=== PATIENT | male | born 1935 | race Caucasian/White ===

== ENCOUNTER → 2016-11-04 | Outpatient (CLI) | payer OTHER ==
[~2016-11-04] MED LIST: GADOBUTROL 10 ML VIAL IVP ONE
[2016-11-04 15:33] LABS: CREATININE 1.2 mg/dL (0.7-1.3)
== END ==
LOC: FIMAGING 14:24
PROVIDERS: ATTEND Physician Assistant
DX: M51.36 Other intervertebral disc degeneration, lumbar region (principal); M12.88 Other specific arthropathies, not elsewhere classified, other specified site; M43.16 Spondylolisthesis, lumbar region; M48.06 Spinal stenosis, lumbar region; M99.73 Connective tissue and disc stenosis of intervertebral foramina of lumbar region
CPT/HCPCS: 72158; A9585

== ENCOUNTER → 2018-09-04 | Outpatient (CLI) | payer OTHER | LOC: FIMAGING 14:25 | PROVIDERS: ATTEND Family Medicine | DX: R06.02 Shortness of breath (principal); R06.09 Other forms of dyspnea; R68.89 Other general symptoms and signs; Z79.01 Long term (current) use of anticoagulants; Z86.711 Personal history of pulmonary embolism ==

== ENCOUNTER → 2018-09-04 | Outpatient (CLI) | payer OTHER ==
[~2018-09-04] MED LIST changes: -GADOBUTROL 10 ML VIAL IVP ONE; +IOPAMIDOL (ISOVUE 370) 100 ML BTL IV ONE
== END ==
LOC: FIMAGING 16:49
PROVIDERS: ATTEND Family Medicine
DX: R06.02 Shortness of breath (principal); R79.89 Other specified abnormal findings of blood chemistry; Z86.711 Personal history of pulmonary embolism
CPT/HCPCS: 71275; Q9967; 82565-PO

== ENCOUNTER 2018-09-25 11:47 | Emergency (ER) | payer OTHER ==
--- NOTE | 2018-09-25 12:18 | EDPHY ---
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,PE's,Brain tumor - Social History Smoking Status: Former smoker Constitutional: Initial Vital Signs Temperature (C) 36.3 C 09/25/18 11:56 Heart Rate 110 H 09/25/18 11:56 Respiratory Rate 18 09/25/18 11:56 Blood Pressure 95/71 L 09/25/18 11:56 O2 Sat (%) 95 09/25/18 11:56 O2 Delivery Mode Room Air Allergies/Adverse Reactions: Sulfa (Sulfonamide Antibiotics) [Sulfa(Sulfonamide Antibiotics)] Allergy ( Verified 05/26/12 13:16) CAUSED KIDNEY PROB CHILD Home Medications: Medication Instructions Recorded Cholecalciferol Vit D3 [Vitamin D3 2,000 units PO DAILY18 09/05/12 (*)] Lisinopril/Hctz 20/12.5MG 1 ea PO HS 09/05/12 [Zestoretic/Prinzide 20/12.5MG (*)] Ranitidine HCl [Ranitidine HCl 300 150 mg PO HS 09/05/12 mg] Levothyroxine [Synthroid 25 mcg 25 mcg PO DAILY06 03/04/16 (*)] Mirtazapine [Remeron] 15 mg PO HS 03/04/16 Atorvastatin Calcium [Lipitor 10 10 mg PO DAILY #30 tab 03/06/16 mg (*)] Warfarin Sodium [Coumadin 5MG (*)] 5 mg PO DAILY16 #30 tab 03/06/16 Pantoprazole Sodium 09/25/18 Medical Decision Making ED Course/Re-evaluation: CHIEF COMPLAINT: Referred by PCP for anemia. HISTORY OF PRESENT ILLNESS: This patient is an anticoagulated (warfarin) 83 year old male with past medical history including hypertension, GERD, DVT/PE, TIA. He arrives today at the request of his primary care physician, Dr. Quesada, to rule out GI bleed or other acute causes of anemia. The patient had labs completed yesterday and was noted to have a low hemoglobin/hematocrit. The patient himself is unsure why exactly he is here. He is pale appearing, but feels asymptomatic at this time. He denies melena, hematochezia, hematemesis. No vomiting or diarrhea. He denies abdominal pain. He does complain of indigestion ongoing for the past six weeks, and is scheduled to follow up with cardiology next week to rule out cardiac causes of these symptoms. He denies fever, chest pain, shortness of breath, headache, lightheadedness, or other associated symptoms. REVIEW OF SYSTEMS: A comprehensive 10 system review of systems is otherwise negative aside from elements mentioned in the history of present illness and medical decision making. PHYSICAL EXAM: HR, BP, O2 Sat, RR. Temp noted General Appearance: Alert, well hydrated, appropriate, and non-toxic appearing. Head: Atraumatic without scalp tenderness or obvious injury Eyes: Pupils equal, round, reactive to light and accommodation, EOMI, no trauma , no injection. Ears: Clear bilaterally, no perforation, normal landmarks Nose: Atraumatic, no rhinorrhea, clear. Throat: There is no erythema or exudates, no lesions, normal tonsils, mucus membranes moist. Neck: Supple, nontender, no lymphadenopathy. Respiratory: No retractions, no distress, no wheezes, and no accessory muscle use. Lungs are clear to auscultation bilaterally. Cardiovascular: Regular rate and rhythm, no murmurs, rubs, or gallops. Bilateral carotid, radial, dorsalis pedis, and posterior tibial pulses intact. Good capillary refill all extremities. Gastrointestinal: Abdomen is soft, nontender, non-distended, no masses, no rebound, no guarding, no peritoneal signs. Musculoskeletal: Normal active ROM of all extremities, atraumatic. Neurological: Alert, appropriate, and interactive. The patient has normal DTRs and non-focal cranial nerves, motor, sensory, and cerebellar exam. Skin: No rashes, good turgor, no nodules on palpation. Past medical history: Hypertension, GERD, history of DVT/PE, history of TIA, RBBB, Pontine angle mass. Past surgical history: Noncontributory Family history: Noncontributory. Social history: Lives in [place]. Retired. Does not abuse tobacco, drugs, or alcohol. DIFFERENTIAL DIAGNOSIS: Includes but not limited to upper GI bleed, lower GI bleed, chronic anemia, diverticulosis, tumor. ulcer disease, gastritis, Liz-Kline tear, and esophageal varices. MEDICAL DECISION MAKIN83 y/o male presents to r/o acute causes for anemia including GI bleed. He is currently asymptomatic and denies any recent history of GI bleed symptoms. He has no abdominal pain and no tenderness on exam. Plan for labs including CBC, chemistries, liver, lipase, coag panel, UA. Reviewed laboratory studies. INR is therapeutic at 2.6. H&H are 10 and 29 respectively. The patient's BUN is within normal limits. Reviewed prior laboratory results. Patient's last Hgb was around 40 in February; no other studies between then and now, though he has been anemic in the past. The patient's MCV is elevated which is more likely consistent with more chronic anemia. Discussed results of workup so far and offered admission for further evaluation. The patient declines admission and would like to proceed with outpatient GI workup. He has followed up with Dr. Smiley, chart clerk, in the past. He states he feels "absolutely fine" and continues to decline further workup here in the hospital despite my offers. He is therapeutic on his Coumadin. Plan to consult with GI to establish close followup for this patient. 13:[address] Marcelo and Dr. Smiley, chart clerk. Plan for colonoscopy tomorrow morning at 8:30am. The doctors recommend admission for bowel prep and periprocedural management and further evaluation of his anemia. 13:15 The patient continues to decline admission despite the above recommendations. He prefers to follow up outpatient and feels he will be safe at home. Plan to discharge home in good condition with GI follow up. The GI office will call him to discuss scheduling and prep for his colonoscopy. Follow up and return precautions discussed. The patient is comfortable with this plan. - Data Points Laboratory Results: Laboratory Results 09/25/18 12:23 09/25/18 12:23 09/25/18 09/25/18 09/25/18 12:43 12:23 12:23 WBC RBC Hgb POC Hgb 9.2 gm/dL L gm/dL (13.7-17.5) Hct POC Hct 27 % L % (40-51) MCV MCH MCHC RDW Plt Count MPV Neut % (Auto) Lymph % (Auto) [place] % (Auto) Eos % (Auto) Baso % (Auto) Nucleat RBC Rel Count Absolute Neuts (auto) Absolute Lymphs (auto) Absolute Monos (auto) Absolute Eos (auto) Absolute Basos (auto) Absolute Nucleated RBC Immature Gran % Seg Neutrophils % Band Neutrophils % Lymphocytes % Monocytes % Eosinophils % Basophils % Metamyelocytes % Myelocytes % Promyelocytes % Blast Cells % Immature Gran # Absolute Seg Neuts Absolute Band Neuts Absolute Lymphocytes Absolute Monocytes Absolute Eosinophils Absolute Basophils Absolute Metamyelocyte Absolute Myelocytes Absolute Promyelocytes Absolute Plasma Cells Nucleated RBCs Absolute Blast Cells Plasma Cells % Platelet Estimate Polychromasia Oval Macrocytes Elliptocytes Smear Review By PT 27.9 SEC H SEC (12.0-15.0) INR 2.61 H (0.83-1.16) APTT 51.9 SEC H SEC (23.0-38.0) POC Sodium 139 mEq/L mEq/L (135-145) Sodium 136 mEq/L mEq/L (135-145) POC Potassium 3.6 mEq/L mEq/L (3.3-5.0) Potassium 3.8 mEq/L mEq/L (3.5-5.2) POC Chloride 103 mEq/L mEq/L (97-110) Chloride 105 mEq/L mEq/L (97-110) Carbon Dioxide 22 mEq/l mEq/l (22-31) Anion Gap 9 mEq/L mEq/L (6-14) POC BUN 16 mg/dL mg/dL (7-23) BUN 19 mg/dL mg/dL (7-23) Creatinine 1.3 mg/dL mg/dL (0.7-1.3) POC Creatinine 1.3 mg/dL mg/dL (0.7-1.3) Estimated GFR 53 Glucose 97 mg/dL mg/dL (70-100) POC Glucose 97 mg/dL mg/dL (70-100) Calcium 8.5 mg/dL mg/dL (8.5-10.4) Total Bilirubin 0.7 mg/dL mg/dL (0.1-1.4) Conjugated Bilirubin 0.3 mg/dL mg/dL (0.0-0.5) Unconjugated Bilirubin 0.4 mg/dL mg/dL (0.0-1.1) AST 18 IU/L IU/L (17-59) ALT 19 IU/L L IU/L (21-72) Alkaline Phosphatase 49 IU/L IU/L (38-126) Total Protein 6.8 g/dL g/dL (6.3-8.2) Albumin 3.5 g/dL g/dL (3.5-5.0) Lipase 57 IU/L IU/L (23-300) 09/25/18 12:23 WBC 4.32 10^3/uL 10^3/uL (3.80-9.50) RBC 2.85 10^6/uL L 10^6/uL (4.40-6.38) Hgb 10.0 g/dL L g/dL (13.7-17.5) POC Hgb Hct 29.1 % L % (40.0-51.0) POC Hct MCV 102.1 fL H fL (81.5-99.8) MCH 35.1 pg H pg (27.9-34.1) MCHC 34.4 g/dL g/dL (32.4-36.7) RDW 14.6 % % (11.5-15.2) Plt Count 161 10^3/uL 10^3/uL (150-400) MPV 9.2 fL fL (8.7-11.7) Neut % (Auto) Not Reported Lymph % (Auto) Not Reported [place] % (Auto) Not Reported Eos % (Auto) Not Reported Baso % (Auto) Not Reported Nucleat RBC Rel Count Not Reported Absolute Neuts (auto) Not Reported Absolute Lymphs (auto) Not Reported Absolute Monos (auto) Not Reported Absolute Eos (auto) Not Reported Absolute Basos (auto) Not Reported Absolute Nucleated RBC Not Reported Immature Gran % Not Reported Seg Neutrophils % 34.3 % % Band Neutrophils % 0.0 % % Lymphocytes % 35.4 % % Monocytes % 30.3 % % Eosinophils % 0.0 % % Basophils % 0.0 % % Metamyelocytes % 0.0 % % Myelocytes % 0.0 % % Promyelocytes % 0.0 % % Blast Cells % 0.0 % % Immature Gran # Not Reported Absolute Seg Neuts 1.48 10^3/uL L 10^3/uL (1.70-6.50) Absolute Band Neuts 0.00 10^3/uL 10^3/uL (0.00-0.70) Absolute Lymphocytes 1.53 10^3/uL 10^3/uL (1.00-3.00) Absolute Monocytes 1.31 10^3/uL H 10^3/uL (0.30-0.80) Absolute Eosinophils 0.00 10^3/uL L 10^3/uL (0.03-0.40) Absolute Basophils 0.00 10^3/uL L 10^3/uL (0.02-0.10) Absolute Metamyelocyte 0.00 10^3/mL 10^3/mL (0.00-0.00) Absolute Myelocytes 0.00 10^3/mL 10^3/mL (0.00-0.00) Absolute Promyelocytes 0.00 10^3/uL 10^3/uL (0.00-0.00) Absolute Plasma Cells 0.00 10^3/uL 10^3/uL (0.00-0.00) Nucleated RBCs 0 /100 WBC /100 WBC (0-0) Absolute Blast Cells 0.00 10^3/uL 10^3/uL (0.00-0.00) Plasma Cells % 0.0 % % Platelet Estimate ADEQUATE (ADEQ) Polychromasia 1+ H Oval Macrocytes 1+ H Elliptocytes 1+ H Smear Review By Pending PT INR APTT POC Sodium Sodium POC Potassium Potassium POC Chloride Chloride Carbon Dioxide Anion Gap POC BUN BUN Creatinine POC Creatinine Estimated GFR Glucose POC Glucose Calcium Total Bilirubin Conjugated Bilirubin Unconjugated Bilirubin AST ALT Alkaline Phosphatase Total Protein Albumin Lipase Point of Care Test Results: Chemistry 09/25/18 12:43 POC Sodium 139 mEq/L mEq/L (135-145) POC Potassium 3.6 mEq/L mEq/L (3.3-5.0) POC Chloride 103 mEq/L mEq/L (97-110) POC BUN 16 mg/dL mg/dL (7-23) POC Creatinine 1.3 mg/dL mg/dL (0.7-1.3) POC Glucose 97 mg/dL mg/dL (70-100) ISTAT H&H 09/25/18 12:43 POC Hgb 9.2 gm/dL L gm/dL (13.7-17.5) POC Hct 27 % L % (40-51) Departure - Departure Disposition: Home, Routine, Self-Care Clinical Impression: Anemia Qualifiers: Anemia type: other cause Other causes of anemia: chronic disease, other Qualified Code(s): D63.8 - Anemia in other chronic diseases classified elsewhere Condition: Good Instructions: Anemia (ED) Additional Instructions: Follow up with your primary care provider for further evaluation. Follow up with gastroenterology as discussed. Return to the emergency department for fever, blood in your stool or dark, tarry stools, abdominal pain, or other worsening of condition or further concerns. Referrals: Roslyn Quesada MD [Primary Care Provider] - As per Instructions Jarad Marcelo MD [Medical Doctor] - As per Instructions Report Scribed for: Efren Poe Report Scribed by: Silvina Velázquez Date of Report: 09/25/18 Time of Report: 13:10
[2018-09-25 12:35] LABS: PLATELET COUNT 161 10^3/uL (150-400)
[2018-09-25 12:44] LABS: INR 2.61 (0.83-1.16); PROTIME(PATIENT) 27.9 SEC (12.0-15.0)
[2018-09-25 13:23] VITALS: BP 107/56
== END 2018-09-25 13:23 | disposition home or self-care (01) ==
DX: D64.9 Anemia, unspecified (principal); I10 Essential (primary) hypertension; K21.9 Gastro-esophageal reflux disease without esophagitis; Z79.01 Long term (current) use of anticoagulants; Z87.891 Personal history of nicotine dependence
CPT/HCPCS: 82435-PO; 82565-PO; 82947-PO; 84132-PO; 84295-PO; 84520-PO; 85014-ER

== ENCOUNTER 2018-09-29 10:01 | Inpatient (IN) | payer OTHER ==
--- NOTE | 2018-09-29 10:18 | EDPHY ---
H & P Stated Complaint: Fatigued --"anemia" gen abd pain--see recent bch hx Time Seen by Provider: 09/29/18 10:19 - Personal History Tetanus Vaccine Date: OVER 10 YRS AGO - Medical/Surgical History Hx Asthma: No Hx Chronic Respiratory Disease: No Hx Diabetes: No Hx Cardiac Disease: No Hx Renal Disease: No Hx Cirrhosis: No Hx Alcoholism: No Hx HIV/AIDS: No Hx Splenectomy or Spleen Trauma: No Other PMH: hypertension,gerd,PE's,tumor L brain stem - Social History Smoking Status: Former smoker Constitutional: Initial Vital Signs Temperature (C) 36.0 C 09/29/18 10:05 Heart Rate 105 H 09/29/18 10:05 Respiratory Rate 16 09/29/18 10:05 Blood Pressure 123/58 H 09/29/18 10:05 O2 Sat (%) 97 09/29/18 10:05 O2 Delivery Mode Room Air Allergies/Adverse Reactions: Sulfa (Sulfonamide Antibiotics) [Sulfa(Sulfonamide Antibiotics)] Allergy ( Verified 05/26/12 13:16) CAUSED KIDNEY PROB CHILD Home Medications: Medication Instructions Recorded Cholecalciferol Vit D3 [Vitamin D3 2,000 units PO DAILY18 09/05/12 (*)] Lisinopril/Hctz 20/12.5MG 1 ea PO HS 09/05/12 [Zestoretic/Prinzide 20/12.5MG (*)] Ranitidine HCl [Ranitidine HCl 300 150 mg PO HS 09/05/12 mg] Levothyroxine [Synthroid 25 mcg 25 mcg PO DAILY06 03/04/16 (*)] Mirtazapine [Remeron] 15 mg PO HS 03/04/16 Atorvastatin Calcium [Lipitor 10 10 mg PO DAILY #30 tab 03/06/16 mg (*)] Warfarin Sodium [Coumadin 5MG (*)] 5 mg PO DAILY16 #30 tab 03/06/16 Pantoprazole Sodium 09/25/18 Ferrous Sulfate 09/29/18 Medical Decision Making ED Course/Re-evaluation: CHIEF COMPLAINT: Weakness, dyspnea, anemia HISTORY OF PRESENT ILLNESS: This patient is an anticoagulated (warfarin) 83 year old male with past medical history including hypertension, GERD, DVT/PE, TIA. He was seen on 09/25/18 for the same complaint and was offered admission multiple times, but declined. He followed up with [facility], the next day and an upper endoscopy showed gastritis. Since then he had progressive weakness and dyspnea with even mild exertion. He describes difficulty moving around his home to eat. He denies abdominal pain, but has had indigestion symptoms for several weeks. He denies fever, chest pain, headache, syncope, black tarry stools, vomiting, urinary symptoms. REVIEW OF SYSTEMS: A comprehensive 10 system review of systems is otherwise negative aside from elements mentioned in the history of present illness and medical decision making. PHYSICAL EXAM: HR, BP, O2 Sat, RR. Temp noted General Appearance: Alert, well hydrated, appropriate, pale and fatigued- appearing. Head: Atraumatic without scalp tenderness or obvious injury Eyes: Pupils equal, round, reactive to light and accommodation, EOMI, no trauma , no injection. Nose: Atraumatic, no rhinorrhea, clear. Throat: Mucus membranes moist. Neck: Supple, nontender, no lymphadenopathy. Respiratory: No retractions, no distress, no wheezes, and no accessory muscle use. Lungs are clear to auscultation bilaterally. Cardiovascular: Regular rate and rhythm, no murmurs, rubs, or gallops. Good capillary refill all extremities. Gastrointestinal: Abdomen is soft, nontender, non-distended, no masses, no rebound, no guarding, no peritoneal signs. Musculoskeletal: Normal active ROM of all extremities, atraumatic. Neurological: Alert, appropriate, and interactive. The patient has non-focal cranial nerves, motor, sensory, and cerebellar exam. Skin: No rashes, good turgor, no nodules on palpation. Past medical history: Hypertension, GERD, history of DVT/PE, history of TIA, RBBB, Pontine angle mass. Past surgical history: Noncontributory Family history: Noncontributory. Social history: Lives in [place]. Retired. Does not abuse tobacco, drugs, or alcohol. DIFFERENTIAL DIAGNOSIS: Includes but not limited to upper GI bleed, lower GI bleed, chronic anemia, diverticulosis, tumor. ulcer disease, gastritis, Liz-Kline tear, and esophageal varices. MEDICAL DECISION MAKIN83 y/o male with known anemia and suspected upper GI bleed returns to the ED with progressive weakness and exertional dyspnea now seeking admission. He was seen here recently with concern for GI bleed, but declined admission and followed up with GI the next day for an endoscopy. Upper endoscopy showed gastritis. He is pale and fatigue-appearing on exam. His abdomen is benign. Plan for IV, labs, and admission. Spoke with hospitalist service. Dr. Decker accepts admission. - Data Points Laboratory Results: Laboratory Results 09/29/18 10:25 09/29/18 09/29/18 09/29/18 10:25 10:25 10:25 WBC 3.58 10^3/uL L 10^3/uL (3.80-9.50) RBC 2.87 10^6/uL L 10^6/uL (4.40-6.38) Hgb 10.1 g/dL L g/dL (13.7-17.5) Hct 29.1 % L % (40.0-51.0) MCV 101.4 fL H fL (81.5-99.8) MCH 35.2 pg H pg (27.9-34.1) MCHC 34.7 g/dL g/dL (32.4-36.7) RDW 15.0 % % (11.5-15.2) Plt Count 183 10^3/uL 10^3/uL (150-400) MPV 9.2 fL fL (8.7-11.7) Neut % (Auto) Pending Lymph % (Auto) Pending [place] % (Auto) Pending Eos % (Auto) Pending Baso % (Auto) Pending Nucleat RBC Rel Count Pending Absolute Neuts (auto) Pending Absolute Lymphs (auto) Pending Absolute Monos (auto) Pending Absolute Eos (auto) Pending Absolute Basos (auto) Pending Absolute Nucleated RBC Pending Immature Gran % Pending Immature Gran # Pending Platelet Estimate Pending PT Pending INR Pending APTT Pending Sodium Pending Potassium Pending Chloride Pending Carbon Dioxide Pending Anion Gap Pending BUN Pending Creatinine Pending Estimated GFR Pending Glucose Pending Calcium Pending Total Bilirubin Pending Conjugated Bilirubin Pending Unconjugated Bilirubin Pending AST Pending ALT Pending Alkaline Phosphatase Pending Total Protein Pending Albumin Pending Lipase Pending Departure - Departure Referrals: Roslyn Quesada MD [Primary Care Provider] - As per Instructions Report Scribed for: Efren Poe Report Scribed by: Sharyn Nunez Date of Report: 09/29/18 Time of Report: 10:42
[2018-09-29 10:39] LABS: PLATELET COUNT 183 10^3/uL (150-400)
[2018-09-29 10:48] LABS: INR 3.05 (0.83-1.16); PROTIME(PATIENT) 31.4 SEC (12.0-15.0)
[2018-09-29] MEDS ORDERED: ONDANSETRON 4 MG/2 ML VIAL IVP PRN (12:53)
[2018-09-29] MEDS ORDERED: ONDANSETRON DISINTEGRATING 4 MG TAB PO PRN (12:53)
[2018-09-29] MEDS: NS 1,000 ML IV SCH (13:10)
--- NOTE | 2018-09-29 14:06 | ASMTCMCOM ---
CM Note CM Note Notes: CM reviewed pt's chart for d/c planning. Pt is an 83 y/o male who came to the ED due to fatique and generalized abdominal pain.He was seen at the ED on 09/26 for similar complaints and offered hospitalization multiple times, but declined and followed up out-pt. An upper endoscopy showed gastritis. 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 Pt lives in [place] and is a . OT/PT evals have been ordered. CM will follow for recommendations. D/C Plan: TBD Date Signed: 09/29/2018 02:06 PM Electronically Signed By:Bridget Townsend
--- NOTE | 2018-09-29 14:16 | GHP ---
DATE OF ADMISSION: 09/29/2018 CHIEF COMPLAINT: Fatigue with associated dyspnea on exertion. HISTORY OF PRESENT ILLNESS: The patient is an 83-year-old gentleman with a history of hypertension, DVT, pulmonary emboli on chronic anticoagulation, GERD , and transient ischemic attack who presented to the emergency room with complaints of fatigue as well as shortness of breath. He was here recently in the emergency room for the same complaints. At that time he declined admission , but did have a followup EGD with Dr. Smiley. This showed gastritis. He had a colonoscopy in September 2013 that was noted to be normal. He denies any melena or hematochezia. He denies any fever, chills, night sweats. He has had an approximately 10 pound weight loss over the last 6 weeks because he has no appetite. When I asked him why he came here, he said "I just don't feel good." He has no specific symptoms except that he has to force himself to eat. He gets up in the morning and tries to eat a banana followed a bowl of cereal. By noon, he is absolutely not hungry and he forces down some soup and a sandwich. He denies any nausea, no vomiting, he just has no appetite. In regard to his dyspnea, this only occurs with exertion. He has a history of PEs and is therapeutic on his INR. During my interview, his main complaint is just overall no appetite and exhaustion. PAST MEDICAL HISTORY: 1. He had an echocardiogram in 2015 that showed an LVEF of 69% with diastolic dysfunction. 2. History of pulmonary emboli x2. 3. Transient ischemic attack in February of 2006. 4. Right bundle branch block. 5. Hypertension. 6. Gastroesophageal reflux disease. 7. Mild pulmonary hypertension. 8. DVT. 9. Hypothyroidism. 10. BPH. PAST SURGICAL HISTORY: 1. Cholecystectomy. 2. Benign spinal cord tumor excision. FAMILY HISTORY: 1. Father from stomach cancer at age 72. 2. Mother from from complications of a stroke at age 73. SOCIAL HISTORY: He does not smoke. He does not drink alcohol. He is . His in 2011. He is not clear what she from. She had mental illness. He has 4 children. He lives alone. ALLERGIES: Sulfa. HOME MEDICATIONS: Dexilant 60 mg daily a.c. Carafate 1 g p.o. at bedtime and a.c. Coumadin 2.5 mg p.o. Monday, Monday, Monday. Coumadin 5 mg p.o. Monday , Monday, , Monday. Metamucil 1 packet at night. Vitamin B12 1000 mcg daily. Protonix 40 mg daily. Ranitidine 300 mg daily. Synthroid 25 mcg daily. Remeron 300 mg daily. Lisinopril/hydrochlorothiazide 20/12.5 mg daily. Vitamin D3 2000 units daily. REVIEW OF SYSTEMS: A 10-point review of system was performed and was negative other than the pertinent positives in the HPI and past medical history. PHYSICAL EXAM: GENERAL: The patient is an 83-year-old male who appears to be in fair health and looks extremely tired. VITAL SIGNS: Blood pressure is 124/ 65. Heart rate of 93. Respiratory rate is 16. O2 sats on 2 L are 96%. Temperature is 36.8 Celsius. EYES: Pupils are equal and reactive. EOMs are intact. He is wearing glasses. ENT: Normal ears. Hearing intact. Airway is dry. His lips are very chapped. NECK: Trachea is midline. CARDIOVASCULAR: He is in a regular rate and rhythm. No murmurs, rubs, or gallops noted. CHEST : Lungs normal respiratory effort. Clear without wheezing, rales, rhonchi. ABDOMEN: Soft, nontender. No rebound. No guarding. SKIN: No rashes or ulcers noted. MUSCULOSKELETAL: He has equal upper and lower extremity strength. PSYCHIATRIC: He is alert and oriented. Normal mood, affect. Normal judgment, insight, and normal memory. DATA REVIEWED: A CBC shows a white blood cell count of 3.58, hemoglobin 10.1, hematocrit of 29.1, MCV of 101.4. Coags: Pro time is 31.4, INR 3.05, PTT of 61.4. Chemistry panel shows a sodium of 136, potassium 4, CO2 of 21, BUN of 20 , creatinine of 1.3, glucose of 121, calcium of 8.3. Total bili is 0.8, AST 23 , ALT 21, alk phos 56, albumin is 3.5, total protein is 7.1, lipase is 62. I reviewed the patient's care with Dr. Efren Poe, the ER physician. ASSESSMENT/PLAN: 1. Fatigue with ongoing anorexia with significant weight loss. Will check a BNP. Check an EKG and a troponin. Will get an echocardiogram to further evaluate this. I also spoke with Gastroenterology who will do further evaluation of his anemia. 2. Dyspnea on exertion. He has a history of pulmonary emboli. INR is therapeutic. Will get a chest x-ray. Also check a troponin and an EKG. 3. Macrocytic anemia. He had a B12 on September 24 that was 631. His hemoglobin and hematocrit are lower than his baseline. I have spoken with Gastroenterology. He recently had an esophagogastroduodenoscopy. They will further evaluate him. He will likely get a colonoscopy. 4. Hypothyroidism. His most recent TSH on September 24 was stable at 2.2. Resume his Synthroid. 5. Renal insufficiency, close to his baseline. 6. Dehydration. Hydrate him overnight and recheck labs in the morning. 7. Elevated INR. Will hold his Coumadin in the setting of anemia and further evaluation by gastroenterology. 8. History of pulmonary emboli. Once noted stable, his Coumadin will need to be resumed. 9. Hypertension. Will hold his blood pressure medication for now. He is on a diuretic and he is dehydrated. 10. Deep venous thrombosis prophylaxis, on oral anticoagulation. 11. Code status. Do not resuscitate. 12. Length of stay. I suspect he will require greater than a 2-midnight stay for further evaluation of the above. /[id number]/MODL MTDD
--- NOTE | 2018-09-29 16:01 | PDMN ---
Medical Necessity Medical necessity: Pt meets INPT criteria per MD as of 09/29/18 and MCG Systemic or Infectious Condition GRG (est. LOS >2 MN for eval/mgmt of fatigue, ANDERSON, ongoing anorexia with significant weight loss, macrocytic anemia, dehydration, renal insufficiency, elevated INR; comorbid htn, mild pulmonary htn, GERD; hx PE , TIA).
--- NOTE | 2018-09-29 17:12 | ECHO ---
[email or web address] [address] [address] Main: [phone] Fax: [email or web address] Echocardiogram Name: PEREZ FLOOD MR#: [id number] Study Date: 09/29/2018 Study Time: 01:43 PM Date of : 1935 Age: 83 year(s) Height: 188 cm (74 in.) Weight: 88.91 kg (196 lb.) BSA: 2.15 m2 Gender: Male Examination: Echo Indication: weakness and dyspnea Image Quality: Technically Difficult Contrast: Requested by: Patsy Ram BP: 124 mmHg/65 mmHg Heart Rate: Rhythm: Indication: weakness and dyspnea Procedure Staff Paper Machine Back Tender: Naima Pineda [facility] Reading Physician: Armand Peterson MD Requesting Provider: Conclusions: Normal global systolic LV function. EF is 63 %. Trivial mitral valve regurgitation. Trivial tricuspid valve regurgitation. No pericardial effusion. Measurements: Chambers Valvular Assessment AV/MV Valvular Assessment TV/PV Normal Normal Normal Name Value Range Name Value Range Name Value Range Ao Ilda (MM): 3.6 cm (2.2 cm-3.7 AV Vmax: 1.39 m/s (1 m/s-1.7 PV Vmax: 1.05 m/s (0.6 m/s-0.9 cm) m/s) m/s) IVSd (2D): 1.0 cm (0.6 cm-1.1 AV maxP mmHg ( - ) PV PGmax: 4 mmHg ( - ) cm) LVOT Vmax: 1.15 m/s (0.7 m/s-1.1 LVDd (2D): 4.4 cm (4.2 cm-5.9 m/s) cm) ELIZABETH (Vmax): 2.6 cm2 ( - ) LVDs (2D): 2.9 cm (2.1 cm-4 MV E Vmax: 0.67 m/s ( - ) cm) MV A Vmax: 1.03 m/s ( - ) LVPWd (2D): 0.9 cm (0.6 cm-1 MV E/A: 0.65 ( - ) cm) LVOTd 2.0 cm 2.0 cm mm LVEF (BP): 63 % (>=55 %) RVDd(2D): 3.4 cm (1.9 cm-3.8 cmmm) Continued Measurements: Chambers Valvular Assessment AV/MV Name Value Name Value LADs Lon.6 cm MV DecTime: 222 m/s Patient: PEREZ FLOOD Study Date: 09/29/2018 Page 1 of 2 01:43 PM LA Area: 14.3 cm2 MV E' Septal: 0.09 m/s LA Volume: 47 ml MV E/E' Septal: 7.40 LA Volume Index: 21.9 ml/m2 MV E/E' Lateral: 6.90 TAPSE: 1.8 cm RA Area: 12.6 cm2 Additional Vessels Name Value Ao Ascendin.2 cm Findings: Left Ventricle: Normal size left ventricle. No LV hypertrophy. Normal global systolic LV function. EF is 63 %. No regional wall motion abnormality. Normal diastolic LV function. Right Ventricle: Normal size right ventricle. Normal RV function. Left Atrium: The left atrium is normal in size. Right Atrium: The right atrium is normal in size. Mitral Valve: The mitral valve is normal in appearance and function. Trivial mitral valve regurgitation. No mitral stenosis is present. Aortic Valve: The aortic valve is tri-leaflet. There is no aortic valve regurgitation. No aortic valve stenosis is present. Tricuspid Valve: The tricuspid valve is normal in appearance and function. Trivial tricuspid valve regurgitation. Pulmonary artery pressure is not obtained due to inadequate TR jet. Pulmonic Valve: Pulmonary valve not well visualized. There is no pulmonic regurgitation seen. Aorta: The aorta is normal. Normal size aortic root measuring 3.6 cm. Normal size ascending aorta measuring 3.2 cm. IVC: Normal size and course of the IVC. Pericardium: No pericardial effusion. (No Signature Object) Patient: PEREZ FLOOD Study Date: 09/29/2018 Page 2 of 2 01:43 PM [id number]
[2018-09-29] MEDS: SUCRALFATE 1 GM TAB PO SCH ×2 (18:30→20:50)
[2018-09-29] MEDS: ACETAMINOPHEN 325 MG TAB PO PRN (23:25)
[2018-09-30] MEDS: NS 1,000 ML IV SCH ×2 (02:09→10:29)
--- NOTE | 2018-09-30 02:35 | GCON ---
REFERRING PHYSICIAN: Patsy Ram NP CHIEF COMPLAINT: 83-year-old male admitted with nonspecific complaints of anorexia, weight loss. HISTORY OF PRESENT ILLNESS: I have been asked to see this very pleasant 83-year -old gentleman in consultation by Patsy Ram for evaluation of anorexia and weight loss. The patient has had recent upper endoscopy with reported anemia. He has been followed by Dr. Smiley. He had a recent upper endoscopy that was normal. He has had previous colonoscopy about 4 years ago which was normal. Colonoscopy was done for routine colorectal screening at that time. He has no family history of colon cancer or colon polyps. He does have a history of reflux disease. He has had generalized nonspecific symptoms of fatigue and anorexia. He has about a 10 pound weight loss. He has no significant GI complaints. No abdominal pain or discomfort. He has undergone a recent chest x-ray which was normal. Recent CT scan of the chest that was normal. He has had slight anemia with hemoglobin 10 with hematocrit 29.1 with an MCV of 101.4. Coags were abnormal with a PT of 31.4 with an INR 3.05. He does have a history of taking Coumadin. He is on chronic anticoagulation. He has had prior history of DVT and PE as well as TIA. Serum chemistries were normal with normal liver function tests. As mentioned, he has a history of hypertension as well as GERD and DVT and PE. Prior history of TIA. Recent upper endoscopy showed only gastritis. He has had progressive dyspnea and weakness. He denies any falls at home. He denies any nausea, vomiting, or difficulty with dysphagia. However, he does have anorexia. He has had no significant change in bowel habits. He has had some slight constipation. Denies any blood per rectum. PAST MEDICAL HISTORY: Remarkable for GERD, hypertension, DVT, PE, TIA, chronic anticoagulation. He does have a history of diastolic dysfunction. Right bundle branch block. Pulmonary hypertension, hypothyroidism, BPH. PRIOR SURGICAL HISTORY: Remarkable for cholecystectomy, benign spinal cord tumor excision. SOCIAL HISTORY: Nonsmoker, nondrinker. in 2011. He lives alone and independently. He has 4 children. ALLERGIES: Sulfa. MEDICATIONS: Prior to admission included Exelon, Carafate, Coumadin, Metamucil , vitamin B12, ranitidine, Synthroid, Remeron, lisinopril/hydrochlorothiazide, and vitamin D3. FAMILY HISTORY: Negative as it pertains to chief complaint. REVIEW OF SYSTEMS: Negative for 10 systems unless mentioned in HPI. PHYSICAL EXAMINATION: GENERAL: 83-year-old gentleman in no acute distress. VITAL SIGNS: 124/56, heart rate is 93, respiratory rate 16, 96% sat on 2 L. HEENT: Normocephalic, atraumatic. EOMI. NECK: Supple. No cervical adenopathy. LUNGS: Clear. CARDIAC: Normal S1, S2. No murmur. ABDOMEN: Soft, benign. No hepatosplenomegaly. EXTREMITIES: No clubbing, cyanosis, edema. SKIN: Warm, dry, intact. NEURO: Nonfocal. PSYCH: Alert and oriented x3 with normal affect. LABORATORY DATA: CBC: White count 3.58, hemoglobin 10.1, hematocrit 29.1, MCV 101.4, PTT of 31.4. INR 3.05, PTT of 61.4. Serum sodium 136, potassium 4, CO2 21, BUN of 20, creatinine 1.3, blood sugar of 121, total bilirubin 0.8, AST 23, ALT of 21, alkaline phosphatase 56, albumin 3.5, total protein 7.1, lipase 62. IMPRESSION: An 83-year-old gentleman with nonspecific symptoms, mild weight loss, anorexia, normal recent upper endoscopy. No lower gastrointestinal symptoms. He has macrocytic indices. He has had previous normal B12 level earlier this month. Patient is on chronic anticoagulation. Symptoms are nonspecific without any specific gastrointestinal complaints. RECOMMENDATIONS: 1. Patient is undergoing cardiac echo. 2. Will proceed with colonoscopy for further evaluation to rule out significant colonic pathology. However, patient is anticoagulated on Coumadin and is higher risk for endoscopic procedure due to chronic anticoagulation and comorbid disease. This will need to be held prior to colonoscopy. Will follow with you while in the hospital. Thank you for allowing me to participate in the care of this patient. /[id number]/MODL MTDD
[2018-09-30 05:31] LABS: INR 3.54 (0.83-1.16); PROTIME(PATIENT) 35.2 SEC (12.0-15.0)
[2018-09-30 05:42] LABS: PLATELET COUNT 140 10^3/uL (150-400)
[2018-09-30] MEDS: LEVOTHYROXINE 25 MCG TAB PO SCH (05:55)
[2018-09-30] MEDS: SUCRALFATE 1 GM TAB PO SCH ×4 (07:30→22:53)
--- NOTE | 2018-09-30 09:30 | SOAPPROG ---
SOAP Progress Note Assessment/Plan: Assessment: 83 year old gentleman with non-specific symptoms, FTT, weight loss, anorexia. Has had outpatient work up with normal EGD, normal Chest CT and cardiac echo. Patient with macrocytic anemia. Had normal colonoscopy 4 years ago. no GI symptoms. Colonoscopy requested but cannot proceed with colonoscopy with high INR. Discussed with Dr. Decker, will proceed with CT scan of the abdomen and pelvis. Can proceed with colonoscopy when INR normalized. Continue to hold Coumadin. Patient lives alone and is . ? if depression playing a role. Plan: 1. Regular diet 2. CT Scan of the abdomen and pelvis with IV and oral contrast 3. Recheck PT/INR in Am 09/30/18 09:31 Subjective: CC: Anorexia, macrocytic anemia Patient without abdominal pain or discomfort, No change in BM. C/o no energy and anorexia. Objective: Vital Signs Temp Pulse Resp BP Pulse Ox 36.8 C 97 17 113/55 L 95 09/30/18 07:30 09/30/18 07:30 09/30/18 07:30 09/30/18 07:30 09/30/18 07:30 Microbiology 09/29/18 14:00 Respiratory Panel (PCR) - Final Nasal, Sinus - Swab No Organism Detected By Pcr Laboratory Results 09/30/18 04:40 09/30/18 04:40 09/29/18 09/30/18 10/01/18 05:59 05:59 05:59 Intake Total 2756 Output Total 400 175 Balance 2356 -175 PT 35.2 SEC (12.0-15.0) H 09/30/18 04:40 INR 3.54 (0.83-1.16) H 09/30/18 04:40 Generic Name Dose Route Start Last Admin Trade Name Freq PRN Reason Stop Dose Admin Acetaminophen 650 mg 09/29/18 12:53 09/29/18 23:25 Tylenol PO 03/28/19 12:52 650 mg Q4HRS PRN Administration Pain, Mild/Fever, Can Take PO Cholecalciferol 2,000 units 09/30/18 09:00 Vitamin D PO 03/29/19 08:59 DAILY HUDSON Sodium Chloride 1,000 mls @ 100 mls/hr 09/29/18 13:00 09/30/18 02:09 Ns IV 03/28/19 12:59 1,000 mls CONT HUDSON Administration Levothyroxine Sodium 25 mcg 09/30/18 06:00 09/30/18 05:55 Synthroid PO 03/29/19 05:59 25 mcg DAILY06 HUDSON Administration Ondansetron HCl 4 mg 09/29/18 12:53 Zofran IVP 03/28/19 12:52 Q4HRS PRN Nausea/Vomiting, Can't Take PO Ondansetron HCl 4 mg 09/29/18 12:53 Zofran Odt PO 03/28/19 12:52 Q4HRS PRN Nausea/Vomiting, Use 1st Pantoprazole Sodium 40 mg 09/30/18 09:00 Protonix PO 03/29/19 08:59 DAILY HUDSON Sucralfate 1 gm 09/29/18 17:30 09/29/18 20:50 Carafate PO 03/28/19 17:29 1 gm ACHS HUDSON Administration Vitamin B Complex 1,000 mcg 09/30/18 09:00 Vitamin B12 PO 03/29/19 08:59 DAILY HUDSON Physical Exam - Physical Exam General Appearance: alert, no apparent distress Respiratory: lungs clear, normal breath sounds Cardiac/Chest: regular rate, rhythm Abdomen: normal bowel sounds, non-tender, soft Skin: normal color, warm/dry Neuro/Psych: no motor/sensory deficits, alert, oriented x 3 ICD10 Worksheet Patient Problems: Problems Problem Status Onset Cerebral vascular accident Acute Dyspnea Acute Intradural tumor Acute Pulmonary embolism Acute
[2018-09-30] MEDS ORDERED: IOPAMIDOL (ISOVUE 370) 100 ML BTL IV ONE (11:21)
[2018-09-30] MEDS: CHOLECALCIFEROL VIT D3 1,000 UNITS TAB PO SCH (12:20)
[2018-09-30] MEDS: PANTOPRAZOLE SODIUM 40 MG TAB PO SCH (12:20)
[2018-09-30] MEDS: CYANO/VITAMIN B12 1000 MCG TAB PO SCH (12:20)
--- NOTE | 2018-09-30 14:39 | CPEKG ---
Test Reason : OPEN Blood Pressure : / mmHG Vent. Rate : 096 BPM Atrial Rate : 095 BPM P-R Int : 111 ms QRS Dur : 140 ms QT Int : 379 ms P-R-T Axes : 037 000 -35 degrees QTc Int : 479 ms Sinus rhythm Right bundle branch block Confirmed by Tor Chavez ([id number]) on 09/30/2018 2:38:39 PM Referred By: Confirmed By:Tor Chavez
[2018-09-30] MEDS ORDERED: BISACODYL 10 MG SUPP PR PRN (17:51)
[2018-09-30] MEDS ORDERED: LACTULOSE 20 GM/30 ML UDCUP PO PRN (17:51)
[2018-09-30] MEDS ORDERED: MAGNESIUM HYDROXIDE 30 ML UDCUP PO PRN (17:51)
[2018-09-30] MEDS ORDERED: POLYETHYLENE GLYCOL 3350 17 GM PKT PO PRN (17:51)
--- NOTE | 2018-09-30 17:58 | HOSPPROG ---
Hospitalist Progress Note Assessment/Plan: * Fatigue/weight loss -suspect related to his pancytopenia with anemia * Pancytopenia -d/w Dr. Valerie Wheatley - hematology to consult -will likely need BmBx * Fecal impaction -manual disimpaction + enemas + bowel protocol * h/o PE -holding warfarin - per Dr. Wheatley okay for BMBx with elevated INR Subjective: no new complaints. Objective: Vital Signs Temp Pulse Resp BP Pulse Ox 36.8 C 100 17 138/65 H 92 09/30/18 15:35 09/30/18 15:35 09/30/18 15:35 09/30/18 15:35 09/30/18 15:35 Microbiology 09/29/18 14:00 Respiratory Panel (PCR) - Final Nasal, Sinus - Swab No Organism Detected By Pcr Laboratory Results 09/30/18 04:40 09/30/18 04:40 09/29/18 09/30/18 10/01/18 05:59 05:59 05:59 Intake Total 2756 1200 Output Total 400 325 Balance 2356 875 PT 35.2 SEC (12.0-15.0) H 09/30/18 04:40 INR 3.54 (0.83-1.16) H 09/30/18 04:40 case d/w dr wheatley regarding hematology consult d/w DR quintanilla regarding no indication for repeat colonoscopy CT abd - pelvis - fecal impaction - Physical Exam Constitutional: no apparent distress, appears nourished, not in pain Cardiovascular: regular rate and rhythym, no murmur, rub, or gallop Respiratory: no respiratory distress, no rales or rhonchi, clear to auscultation Gastrointestinal: normoactive bowel sounds, soft, non-tender abdomen, no palpable masses Skin: no rashes or abrasions, no fluctuance, no induration Neurologic: AAOx3, sensation intact bilaterally Psychiatric: interacting appropriately, not anxious, not encephalopathic, thought process linear ICD10 Worksheet Patient Problems: Problems Problem Status Onset Intradural tumor Acute Pulmonary embolism Acute Dyspnea Acute Cerebral vascular accident Acute
[2018-09-30] MEDS: MIRTAZAPINE 30 MG TAB PO SCH (22:53)
[2018-09-30] MEDS: SENNOSIDES/DOCUSATE SODIUM TAB PO SCH (23:00)
[2018-09-30] MEDS: PSYLLIUM METAMUCIL 1 PKT PO SCH (23:00)
--- NOTE | 2018-10-01 00:57 | GCON ---
HEMATOLOGY/ONCOLOGY CONSULTATION DATE OF CONSULTATION: 09/30/2018 REQUESTING PHYSICIAN: Dr. Briana Decker. REASON FOR CONSULTATION: Anemia. HISTORY OF PRESENT ILLNESS: The patient is an 83-year-old man who presented to the hospital yesterday with the complaint of "just not feeling good." It is difficult for him to describe specific symptoms. He has noted some dyspnea on exertion. He has anorexia. He believes he has lost about 10 pounds. He has felt worse over the last 6 weeks. Laboratory studies on evaluation demonstrated WBC 3.5, hemoglobin 10.1, MCV 101.4, RDW 15, platelets 183,000. Reviewing past values, he had a normal hemoglobin (15.2) on 02/19/2018. He was admitted for further evaluation. PAST MEDICAL HISTORY: 1. History of pulmonary emboli, on Coumadin. 2. History of TIA, 2005. 3. Right bundle branch block. 4. Hypertension. 5. GERD. 6. Hypothyroidism. 7. BPH. PAST SURGICAL HISTORY: 1. Cholecystectomy. 2. TURP. 3. Excision of benign spinal cord tumor. SOCIAL HISTORY: He has been since 2011. He [place] [facility] [place] 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 He does not smoke or drink alcohol. Two of his 4 children live in [place]. FAMILY HISTORY: His father had stomach cancer. He has 3 daughters and 1 son. No other family history of malignancy or blood disorders. REVIEW OF SYSTEMS: CONSTITUTIONAL: Per HPI. No fevers, chills, night sweats. HEENT: No mucositis, mouth pain. CARDIOVASCULAR: No chest pain, palpitations, lower extremity edema. RESPIRATORY: Per HPI. No pleurisy or cough. GI: No abdominal pain, nausea, vomiting. No melena, hematochezia. He has a bowel movement every other day, which he reports is typical. No dysphagia. : No hematuria, dysuria. He has noted a slow stream. MUSCULOSKELETAL: No new bony complaints. NEUROLOGIC: No headache, numbness, tingling. HEMATOLOGIC: No bruising or bleeding. LYMPH: No lymphadenopathy. LABORATORY DATA: Today, WBC 2.7 (34% segs, 1% bands, 41% lymphocytes, 16% monocytes, 3% metamyelocytes, 3% myelocytes), hemoglobin 8.0, MCV 107.4, RDW 15.1, platelets 140,000. Peripheral smear with 1+ atypical lymphocytes. Normal CMP on admission. Today, total protein 5.6, albumin 2.6. INR 3.5. UA on admission with trace ketones, 1+ blood (09/24/2018). B12 631, TSH 2.22. RADIOLOGIC STUDIES: Negative chest x-ray. ADDITIONAL STUDIES: Echocardiogram: LVEF 63%. EKG: Normal sinus rhythm at 96 with right bundle branch block. PHYSICAL EXAM: VITAL SIGNS: Blood pressure 113/55, pulse 97, respirations 17, 95% on room air, afebrile. GENERAL: Very pleasant, elderly gentleman in no acute distress. HEENT: No scleral icterus. NECK: Supple. LYMPH: No cervical, supraclavicular, axillary, inguinal lymphadenopathy. CARDIOVASCULAR: Regular rate and rhythm, no pretibial edema. ABDOMEN: Soft, nontender. No organomegaly. SKIN: No ecchymoses, petechiae. NEUROLOGIC: Grossly nonfocal. IMPRESSION: 1. Macrocytic anemia with moderate leukopenia/neutropenia, mild thrombocytopenia. 2. General functional decline without specific symptoms. The macrocytosis with normal RDW argues against iron deficiency due to blood loss. In the absence of bleeding or iron deficiency, I think it is reasonable to hold off on colonoscopy. CT of the abdomen/pelvis is pending. I suspect he has underlying bone marrow process given the macrocytosis, other cytopenias, atypical lymphocytes, and initial monocytosis, such as myelodysplasia. His anemia has developed fairly quickly, over the last 7 months. Normal bilirubin argues against hemolysis. Additional laboratory studies will be ordered. he will likely need a bone marrow biopsy. We will get reticulocyte count, LDH, SPEP, peripheral blood flow cytometry, and some additional studies. /[id number]/MODL MTDD
[2018-10-01 05:23] LABS: PLATELET COUNT 125 10^3/uL (150-400)
[2018-10-01 05:31] LABS: INR 3.08 (0.83-1.16); PROTIME(PATIENT) 31.6 SEC (12.0-15.0)
[2018-10-01] MEDS: SUCRALFATE 1 GM TAB PO SCH ×4 (06:06→22:04)
[2018-10-01] MEDS: LEVOTHYROXINE 25 MCG TAB PO SCH (06:06)
--- NOTE | 2018-10-01 08:28 | HOSPPROG ---
Hospitalist Progress Note Assessment/Plan: Mr Telles is an 83 y/o who presented w vague c/o loss of appetite, weight loss and fatigue * Fatigue/weight loss -suspect related to his pancytopenia with anemia * Pancytopenia -Hematology and Oncology involved -hgb and hct cont to trend down -reviewed his care w Dr Delgado; plan is to get a bone marrow biopsy while in the hospitla -suspicion for low-grade Myelodysplastic syndrome -reviewed his care w Dr Kerr, appreciate his involvement, he will sign off * Fecal impaction -manual disimpaction + enemas + bowel protocol * h/o PE -holding warfarin - per Dr. Dioni ortez for BMBx with elevated INR *plan; recheck labs in a.m., if hgb and hct trend any further down, will give a unit of blood; will get biopsy tomorrow and poss dc later in the day Subjective: Ta had a few minutes of feeling like his "old self" this morning, but started feeling poorly again. Objective: Vital Signs Temp Pulse Resp BP Pulse Ox 36.9 C 89 16 110/57 L 96 10/01/18 07:55 10/01/18 07:55 10/01/18 07:55 10/01/18 07:55 10/01/18 07:55 Laboratory Results 10/01/18 05:05 09/30/18 04:40 09/30/18 10/01/18 10/02/18 05:59 05:59 05:59 Intake Total 2756 1800 Output Total 400 325 Balance 2356 1475 PT 31.6 SEC (12.0-15.0) H 10/01/18 05:05 INR 3.08 (0.83-1.16) H 10/01/18 05:05 - Physical Exam Constitutional: appears nourished, not in pain, chronically ill appearing Eyes: PERRL Ears, Nose, Mouth, Throat: hearing normal Cardiovascular: regular rate and rhythym Respiratory: no respiratory distress Gastrointestinal: normoactive bowel sounds Skin: warm, No normal color (pale) Musculoskeletal: generalized weakness Neurologic: AAOx3 Psychiatric: interacting appropriately ICD10 Worksheet Patient Problems: Problems Problem Status Onset Cerebral vascular accident Acute Dyspnea Acute Intradural tumor Acute Pulmonary embolism Acute
[2018-10-01] MEDS: CHOLECALCIFEROL VIT D3 1,000 UNITS TAB PO SCH (11:36)
[2018-10-01] MEDS: SENNOSIDES/DOCUSATE SODIUM TAB PO SCH ×2 (11:36→22:05)
[2018-10-01] MEDS: PANTOPRAZOLE SODIUM 40 MG TAB PO SCH (11:37)
[2018-10-01] MEDS: FAMOTIDINE 20 MG TAB PO SCH (11:37)
[2018-10-01] MEDS: CYANO/VITAMIN B12 1000 MCG TAB PO SCH (11:37)
--- NOTE | 2018-10-01 13:34 | SOAPPROG ---
SOAP Progress Note Assessment/Plan: Assessment: 83 year old gentleman with non-specific symptoms, FTT, weight loss, anorexia. Macrocytic anemial. Currently being worked up by Hematology. Planning for bone marrow biopsy. Patient without PING and no GI symptoms. Normal coloscopy [address] scan of the abdomen. Agree that colonoscopy does not need to be pursued at this point. Plan: Further work up of macrocytic anemia by hematology. BM biopsy. Will sign off, please call with further questions. 10/01/18 13:36 Subjective: CC: Macrocytic Anemia Feeling somewhat better this morning. No GI symptoms. Objective: Vital Signs Temp Pulse Resp BP Pulse Ox 36.9 C 89 16 110/57 L 96 10/01/18 07:55 10/01/18 07:55 10/01/18 07:55 10/01/18 07:55 10/01/18 07:55 Laboratory Results 10/01/18 10:34 09/30/18 04:40 09/30/18 10/01/18 10/02/18 05:59 05:59 05:59 Intake Total 2756 1800 Output Total 400 325 Balance 2356 1475 PT 31.6 SEC (12.0-15.0) H 10/01/18 05:05 INR 3.08 (0.83-1.16) H 10/01/18 05:05 Generic Name Dose Route Start Last Admin Trade Name Freq PRN Reason Stop Dose Admin Acetaminophen 650 mg 09/29/18 12:53 09/29/18 23:25 Tylenol PO 03/28/19 12:52 650 mg Q4HRS PRN Administration Pain, Mild/Fever, Can Take PO Bisacodyl 10 mg 09/30/18 17:[address] 03/29/19 17:50 DAILY PRN Constipation Protocol Cholecalciferol 2,000 units 09/30/18 09:00 10/01/18 11:36 Vitamin D PO 03/29/19 08:59 2,000 units DAILY HUDSON Administration Famotidine 20 mg 10/01/18 09:00 10/01/18 11:37 Pepcid PO 03/30/19 08:59 20 mg DAILY HUDSON Administration Lactulose 20 gm 09/30/18 17:51 Cephulac PO 03/29/19 17:50 TID PRN Constipation Protocol Levothyroxine Sodium 25 mcg 09/30/18 06:00 10/01/18 06:06 Synthroid PO 03/29/19 05:59 25 mcg DAILY06 HUDSON Administration Magnesium Hydroxide 30 ml 09/30/18 17:51 Milk Of Magnesia PO 03/29/19 17:50 DAILY PRN Constipation Protocol Mirtazapine 30 mg 09/30/18 21:00 09/30/18 22:53 Remeron PO 03/29/19 20:59 30 mg HS HUDSON Administration Ondansetron HCl 4 mg 09/29/18 12:53 Zofran IVP 03/28/19 12:52 Q4HRS PRN Nausea/Vomiting, Can't Take PO Ondansetron HCl 4 mg 09/29/18 12:53 Zofran Odt PO 03/28/19 12:52 Q4HRS PRN Nausea/Vomiting, Use 1st Pantoprazole Sodium 40 mg 09/30/18 09:00 10/01/18 11:37 Protonix PO 03/29/19 08:59 40 mg DAILY HUDSON Administration Polyethylene Glycol 17 gm 09/30/18 17:51 Miralax PO 03/29/19 17:50 DAILY PRN Constipation, patient prefers Protocol Psyllium Hydrophilic Mucilloid 1 each 09/30/18 21:00 09/30/18 23:00 Metamucil/Konsyl PO 03/29/19 20:59 Not Given HS HUDSON Senna/Docusate Sodium 1 - 2 tab 09/30/18 21:00 10/01/18 11:36 Senokot-S PO 03/29/19 20:59 2 tab BID HUDSON Administration Protocol Sucralfate 1 gm 09/29/18 17:30 10/01/18 06:06 Carafate PO 03/28/19 17:29 1 gm ACHS HUDSON Administration Vitamin B Complex 1,000 mcg 09/30/18 09:00 10/01/18 11:37 Vitamin B12 PO 03/29/19 08:59 1,000 mcg DAILY HUDSON Administration Warfarin Sodium 1 each 09/30/18 18:00 Warfarin Pharmacy To Dose MISC 03/29/19 17:59 AD HUDSON Protocol Discontinued Medications Generic Name Dose Route Start Last Admin Trade Name Freq PRN Reason Stop Dose Admin Sodium Chloride 1,000 mls @ 100 mls/hr 09/29/18 13:00 09/30/18 10:29 Ns IV 03/28/19 12:59 1,000 mls CONT HUDSON Administration Iopamidol Confirm 09/30/18 11:21 [id number] Administered 09/30/18 11:22 Dose 100 ml IV .STK-MED ONE Physical Exam - Physical Exam General Appearance: alert, no apparent distress Respiratory: lungs clear, normal breath sounds Cardiac/Chest: regular rate, rhythm Abdomen: normal bowel sounds, non-tender, soft Skin: normal color, warm/dry Neuro/Psych: alert, normal mood/affect ICD10 Worksheet Patient Problems: Problems Problem Status Onset Cerebral vascular accident Acute Dyspnea Acute Intradural tumor Acute Pulmonary embolism Acute
--- NOTE | 2018-10-01 13:44 | SOAPPROG ---
SOAP Progress Note Assessment/Plan: Assessment: Ta is an 83-year-old male who presents for evaluation pancytopenia 1. Pancytopenia: He had a vitamin B12, folate, iron studies that were all unremarkable. He did have a serum protein electrophoresis which is pending. I suspect that he could have an underlying primary marrow process including a low low-grade myelodysplastic syndrome. I recommended proceeding with a bone marrow biopsy a given that he is in the hospital I have placed in IR consult for this for tomorrow. It will take some time for the studies to come back and he will need to follow up with us at our [facility] thereafter. 2. History PE: INR is therapeutic at 3.0. We do not typically hold Coumadin for the INR to be subtherapeutic for a bone marrow biopsy. This was discussed with Interventional Radiology. 10/01/18 13:42 Subjective: Ta continues to feel fatigued today. No chest pain. Does have some dyspnea. He is ambulating with significant assistance. No abdominal pain. Objective: Vital Signs Temp Pulse Resp BP Pulse Ox 36.9 C 89 16 110/57 L 96 10/01/18 07:55 10/01/18 07:55 10/01/18 07:55 10/01/18 07:55 10/01/18 07:55 Laboratory Results 10/01/18 10:34 09/30/18 04:40 09/30/18 10/01/18 10/02/18 05:59 05:59 05:59 Intake Total 2756 1800 Output Total 400 325 Balance 2356 1475 PT 31.6 SEC (12.0-15.0) H 10/01/18 05:05 INR 3.08 (0.83-1.16) H 10/01/18 05:05 General: Appears stated age in no acute distress HEENT: Oropharynx is clear extraocular movements are intact Psych: Appropriate affect Cardiovascular: Regular rate Pulmonary: Clear to auscultation Abdomen: Soft nontender nondistended ICD10 Worksheet Patient Problems: Problems Problem Status Onset Cerebral vascular accident Acute Dyspnea Acute Intradural tumor Acute Pulmonary embolism Acute
--- NOTE | 2018-10-01 16:31 | ASMTCMCOM ---
CM Note CM Note Notes: Today OT rec SNF, PT rec C. Spoke with pt about therapy recs, pt adamant he will go home and wants to do outpatient PT per his PCP recommendation. CM will continue to follow pt progress. Date Signed: 10/01/2018 04:29 PM Electronically Signed By:ANTWON Leigh
[2018-10-01] MEDS: MIRTAZAPINE 30 MG TAB PO SCH (22:05)
[2018-10-01] MEDS: PSYLLIUM METAMUCIL 1 PKT PO SCH (22:06)
[2018-10-02 05:55] LABS: INR 2.47 (0.83-1.16); PROTIME(PATIENT) 26.7 SEC (12.0-15.0)
[2018-10-02] MEDS: LEVOTHYROXINE 25 MCG TAB PO SCH (06:29)
--- NOTE | 2018-10-02 08:44 | HOSPPROG ---
Hospitalist Progress Note Assessment/Plan: Mr Telles is an 83 y/o who presented w vague c/o loss of appetite, weight loss and fatigue * Fatigue/weight loss -suspect related to his pancytopenia with anemia * Pancytopenia -Hematology and Oncology involved -hgb and hct cont to trend down -bone marrow biopsy today -suspicion for low-grade Myelodysplastic syndrome * Fecal impaction -manual disimpaction + enemas + bowel protocol * h/o PE -holding warfarin - per Dr. Dioni ortez for BMBx with elevated INR *plan;biopsy today, recheck hgb and hct. if all stable, will dc later today. Subjective: Ta still doesn't have much of an appetite, but is feeling better overall. Objective: Vital Signs Temp Pulse Resp BP Pulse Ox 37.4 C 86 18 124/63 H 91 L 10/02/18 07:27 10/02/18 07:27 10/02/18 07:27 10/02/18 07:27 10/02/18 07:27 Laboratory Results 10/01/18 10:34 09/30/18 04:40 10/01/18 10/02/18 10/03/18 05:59 05:59 05:59 Intake Total 1800 250 Output Total 325 Balance 1475 250 PT 26.7 SEC (12.0-15.0) H 10/02/18 05:01 INR 2.47 (0.83-1.16) H 10/02/18 05:01 - Physical Exam Constitutional: not in pain, chronically ill appearing Eyes: PERRL Ears, Nose, Mouth, Throat: hearing normal Cardiovascular: regular rate and rhythym Respiratory: no respiratory distress Skin: warm, No normal color (pale) Musculoskeletal: generalized weakness Neurologic: AAOx3 Psychiatric: interacting appropriately ICD10 Worksheet Patient Problems: Problems Problem Status Onset Cerebral vascular accident Acute Dyspnea Acute Intradural tumor Acute Pulmonary embolism Acute
[2018-10-02] MEDS: SUCRALFATE 1 GM TAB PO SCH ×4 (09:43→21:03)
[2018-10-02] MEDS: FAMOTIDINE 20 MG TAB PO SCH (11:03)
[2018-10-02] MEDS: SENNOSIDES/DOCUSATE SODIUM TAB PO SCH ×2 (11:03→21:04)
[2018-10-02] MEDS: PANTOPRAZOLE SODIUM 40 MG TAB PO SCH (11:03)
[2018-10-02] MEDS: CHOLECALCIFEROL VIT D3 1,000 UNITS TAB PO SCH (11:04)
[2018-10-02] MEDS: CYANO/VITAMIN B12 1000 MCG TAB PO SCH (11:04)
--- NOTE | 2018-10-02 14:01 | SOAPPROG ---
[facility] Progress Note Assessment/Plan: Assessment: Ta is an 83-year-old male who presents for evaluation pancytopenia 1. Pancytopenia: He had a vitamin B12, folate, iron studies that were all unremarkable. He did have a serum protein electrophoresis showed a monoclonal protein at 0.3, IgG kappa. He does not have any hypercalcemia or significant renal dysfunction. Bone marrow biopsy will be helpful to delineate whether this is a plasma cell process versus and underlying myelodysplastic syndrome, or both. Bone marrow biopsy will be obtained today. 2. History PE: INR is therapeutic at 3.0. We do not typically hold Coumadin for the INR to be subtherapeutic for a bone marrow biopsy. This was discussed with Interventional Radiology. 3. 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 I have ordered a skeletal survey alongside light chains. 10/02/18 13:55 Subjective: No acute events overnight. He is feeling fatigued today. Objective: Vital Signs Temp Pulse Resp BP Pulse Ox 37.4 C 86 18 124/63 H 91 L 10/02/18 07:27 10/02/18 07:27 10/02/18 07:27 10/02/18 07:27 10/02/18 07:27 Laboratory Results 10/02/18 09:25 09/30/18 04:40 10/01/18 10/02/18 10/03/18 05:59 05:59 05:59 Intake Total 1800 250 Output Total 325 Balance 1475 250 PT 26.7 SEC (12.0-15.0) H 10/02/18 05:01 INR 2.47 (0.83-1.16) H 10/02/18 05:01 General: Appears stated age in no acute distress HEENT: Nasal cannula in place oropharynx is clear extraocular movements are intact Cardiovascular: Regular rate and rhythm Pulmonary: Clear to auscultation Abdomen: Soft nontender nondistended Extremities: No cyanosis clubbing or edema ICD10 Worksheet Patient Problems: Problems Problem Status Onset Cerebral vascular accident Acute Dyspnea Acute Intradural tumor Acute Pulmonary embolism Acute
[2018-10-02] MEDS ORDERED: FLUMAZENIL 0.5 MG/5 ML MDV IVP PRN (15:26)
[2018-10-02] MEDS ORDERED: MEPERIDINE 25 MG/ML SYR IVP PRN (15:26)
[2018-10-02] MEDS ORDERED: fentaNYL 100 MCG/2 ML INJ IVP PRN (15:26)
[2018-10-02] MEDS ORDERED: NALOXONE HCL 0.4 MG/ML INJ IVP PRN (15:26)
[2018-10-02] MEDS ORDERED: MIDAZOLAM 2 MG/2 ML VIAL IVP PRN (15:26)
[2018-10-02] MEDS ORDERED: NALOXONE HCL 0.4 MG/ML INJ ONE (15:29)
[2018-10-02] MEDS ORDERED: FLUMAZENIL 0.5 MG/5 ML MDV IVP ONE (15:29)
[2018-10-02] MEDS ORDERED: NS 1,000 ML IV SCH (15:30)
[2018-10-02] MEDS ORDERED: MIDAZOLAM 2 MG/2 ML VIAL ONE (15:30)
[2018-10-02] MEDS ORDERED: fentaNYL 100 MCG/2 ML INJ ONE (15:30)
[2018-10-02] MEDS ORDERED: LIDOCAINE 1% 300 MG/30 ML SDV ONE (15:31)
[2018-10-02] MEDS ORDERED: WARFARIN SODIUM 2.5 MG TAB PO SCH (16:00)
[2018-10-02 16:22] LABS: PLATELET COUNT 133 10^3/uL (150-400)
--- NOTE | 2018-10-02 17:01 | PDRADPN ---
Radiology Procedure Note Date of Procedure: 10/02/18 Radiologist: Ama Cuevas Anesthesia: IV Sedation Pre-op Diagnosis: pancytopenia Post-op Diagnosis: same Procedure: CT guided bone marrow aspirate and biopsy Inf/Abcess present in the surg proc area at time of surgery?: No
--- NOTE | 2018-10-02 17:02 | PDPROPOC ---
Sedation Plan of Care ASA Classification: ASA 2 Mallampati Score: Class 2 Mallampati Reference Image:
[2018-10-02] MEDS: MIRTAZAPINE 30 MG TAB PO SCH (21:03)
[2018-10-02] MEDS: PSYLLIUM METAMUCIL 1 PKT PO SCH (21:04)
[2018-10-02] MEDS: ACETAMINOPHEN 325 MG TAB PO PRN (22:24)
[2018-10-03] MEDS: LEVOTHYROXINE 25 MCG TAB PO SCH (04:56)
[2018-10-03 05:21] LABS: PLATELET COUNT 132 10^3/uL (150-400)
[2018-10-03 05:27] LABS: INR 2.26 (0.83-1.16)
[2018-10-03] MEDS: SUCRALFATE 1 GM TAB PO SCH ×2 (08:31→12:40)
[2018-10-03] MEDS: FAMOTIDINE 20 MG TAB PO SCH (08:32)
[2018-10-03] MEDS: PANTOPRAZOLE SODIUM 40 MG TAB PO SCH (08:32)
[2018-10-03] MEDS: CHOLECALCIFEROL VIT D3 1,000 UNITS TAB PO SCH (08:32)
[2018-10-03] MEDS: CYANO/VITAMIN B12 1000 MCG TAB PO SCH (08:32)
[2018-10-03] MEDS: SENNOSIDES/DOCUSATE SODIUM TAB PO SCH (08:32)
--- NOTE | 2018-10-03 10:54 | PDIAF ---
- Diagnosis Diagnosis: anemia Code Status: Do Not Resuscitate - Medication Management Discharge Medications: electronically signed and located in the Home Medication List. PICC Care - Routine: N/A - Orders Services needed: Home Care, Physical Therapy, Occupational Therapy Home Care Face to Face: I certify that this patient was under my care and that I had the required [id number] encounter meeting the encounter requirements on the discharge day. My findings support the fact that the patient is homebound as defined in Home Care Face to Face Continued: CMS Chapter 7 Medicare Benefits Manual 30.1.1 , The condition of the patient is such that there exists a normal inability to leave home and consequently, leaving home would require a considerable and taxing effort. Isolation Type: None Diet Recommendation: no restrictions on diet - Follow Up Care Current Providers and Referrals: Roslyn Quesada MD [Primary Care Provider] - As per Instructions
--- NOTE | 2018-10-03 12:26 | ASMTLACE ---
LACE Length of stay for Answers: 4-6 days current admission Acuity / Level of Answers: Yes Care: Did the patient have an inpatient admission? Comorbidities - select Answers: Any tumor (including all that apply lymphoma or leukemia) Other Notes: htn, tia # of Emergency department Answers: 1-2 visits in the last 6 months Score: 11 Date Signed: 10/03/2018 12:25 PM Electronically Signed By:ANTWON Leigh
--- NOTE | 2018-10-03 12:41 | ASMTCMCOM ---
CM Note CM Note Notes: Pt adamantly declines SNF and HHC. Pt reports he is "too sick" to schedule PT and wants to go to outpatient PT. Pt declines meals on wheels and reports he has access to food. Pt has dghtr Tia and son in law Wiliam ([phone]) who are very involved. Spoke with Wiliam who states he would be in agreement with C but pt has declined therapies for family. Wiliam has researched a therapy model called [employer] he thinks pt would benefit from, he will keep trying to work with pt on going to [facility] outpatient [facility] where they have this model. Carol Bo CC with PCP office is updated, the PCP does rec HHC too. Carol states pt is good about maintaining appointments with PCP so they will continue to follow. Wiliam to transport pt home. Date Signed: 10/03/2018 12:41 PM Electronically Signed By:ANTWON Leigh
--- NOTE | 2018-10-03 15:38 | GDS ---
DISCHARGE DIAGNOSES: 1. Fatigue with weight loss. 2. Pancytopenia. 3. Fecal impaction. 4. Anemia. 5. History of pulmonary embolus. 6. 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 CONSULTATIONS: 1. Oncology. 2. Gastroenterology. STUDIES AND PROCEDURES: 1. Bone marrow biopsy. 2. CT of the abdomen. PHYSICAL EXAM: GENERAL: The patient is alert. VITAL SIGNS: Afebrile at 36.8, pulse is 92, respirato ry rate is 19, blood pressure is 109/55. He is saturating 93% on 3 L. I have seen and evaluated the patient on the day of discharge. HOSPITAL COURSE: The patient is an 83-year-old male who presents for evaluation of pancytopenia. He was evaluated and diagnosed with: 1. Pancytopenia. He had a thorough evaluation during this hospitalization including a consultation from Hematology. A serum protein electrophoresis shows monoclonal protein of 0.3, IgG kappa. Bone m arrow biopsy was performed during this hospitalization. Results pending at the time of disposition. 2. History of PE. His INR is therapeutic. He will continue on his Coumadin therapy. 3. Anemia, this is stable prior to disposition. 4. Fecal impaction. This has resolved with enemas and bowel protocol. 5. Fatigue and weight loss are likely secondary to the patient's pancytopenia. DISPOSITION: He will be discharged home with home health care. It has been recommended that the pat ient be discharged to halfway for further rehabilitation and management. However, he is refu sing at this time. He will follow up with Oncology next week for biopsy results. He has an appointm ent already scheduled. He will also follow-up with his primary care physician, Dr. Roslyn Quesada. DISCHARGE MEDICATIONS: Please refer to EMR form. I have not provided the patient any prescriptions a t the time of disposition. I have not discontinued any of his previously prescribed home medications to the best of my knowledge. Home health care will include PT and OT. I have also recommended that his family stay with him. He is in agreement with this plan. TIME SPENT WITH PATIENT: I spent greater than 35 minutes in the care, coordination, and management o f this patient's disposition. /[id number]/MODL
[2018-10-03 15:50] VITALS: BP 99/69
[2018-10-03] MEDS ORDERED: WARFARIN SODIUM 5 MG TAB PO ONE (16:00)
== END 2018-10-03 17:44 | disposition home or self-care (01) | DRG 810 ==
LOC: F3N 12:02 → OBSVTOIN 12:57
PROVIDERS: ADMIT Internal Medicine; ATTEND Internal Medicine
PROC: 07DR3ZX Extraction of Iliac Bone Marrow, Percutaneous Approach, Diagnostic (ICD-10-PCS; principal; 2018-10-02 16:35)
DX: D61.818 Other pancytopenia (principal); K56.41 Fecal impaction; K21.9 Gastro-esophageal reflux disease without esophagitis; N40.0 Benign prostatic hyperplasia without lower urinary tract symptoms; E03.9 Hypothyroidism, unspecified; E86.0 Dehydration; I45.10 Unspecified right bundle-branch block; I27.20 Pulmonary hypertension, unspecified; Z66 Do not resuscitate; Z79.01 Long term (current) use of anticoagulants; Z86.711 Personal history of pulmonary embolism; Z86.718 Personal history of other venous thrombosis and embolism
CPT/HCPCS: 82232-90; 86334-90; 88237-90; 88262-90; 97116-GP; 97162-GP; 97166-GO; 97530-GO; 97530-GP; 97535-GO; J2250; J2310; J3010; Q9967

== ENCOUNTER 2018-10-23 17:03 | Inpatient (IN) | payer OTHER ==
--- NOTE | 2018-10-23 17:44 | EDPHY ---
HPI/HX/ROS/PE/MDM Narrative: CHIEF COMPLAINT: Shortness of breath, anemia HISTORY OF PRESENT ILLNESS: This patient is a pleasant 83 year old male with recent diagnosis of myelodysplastic syndrome. He presents today at the request of his silviculture forester, stating "apparently my blood count is all screwed up". He was admitted 09/29/18 for similar symptoms including anemia, weakness. Workup was reportedly negative for GI bleed, and he was discharged with bone marrow biopsy results pending and followed up with [facility]. He states Dr. Smiley, silviculture forester, called 90 minutes ago and recommended he present to the ED for evaluation of abnormal lab results. The patient reports he feels unwell when he wakes each morning. He is unable to elucidate specific symptoms and denies nausea or weakness. He denies vomiting. His friend at bedside believes "sick" does mean nauseous. The patient has been taking Protonix as directed. He reports he has not been eating or drinking much. He feels very short of breath. He denies any blood in his stools. No fever, chills, chest pain, palpitations, vomiting, diarrhea, urinary complaints, headache. REVIEW OF SYSTEMS: A comprehensive 10 system review of systems is otherwise negative aside from elements mentioned in the history of present illness and medical decision making. PAST MEDICAL HISTORY: Hypertension, GERD, history of PEs (anticoagulated, Coumadin), L brain stem tumor, history of TIAs, recent diagnosis of myelodysplastic syndrome SOCIAL HISTORY: Retired. Friend at bedside. Oncologist: Dr. Wheatley. Physicians And Surgeons: Dr. Smiley. VITAL SIGNS: Reviewed by me GENERAL: Very pale. Resting comfortably in no respiratory distress. HEENT: Atraumatic. Eyes: No icterus, no injection. Mouth: dry mucous membranes. No erythema or lesions. Neck: supple with no adenopathy. LUNGS: Clear to auscultation bilaterally, no wheezes, rhonchi or rales. CARDIAC: Regular rate and rhythm, no rubs, murmurs or gallops. ABDOMEN: Firm throughout. Nontender, nondistended. BACK: No CVA tenderness. EXTREMITIES: No trauma. No edema. Range of motion is normal throughout. NEURO: Alert and oriented, grossly nonfocal. SKIN: Pale. Dry, no rash. PSYCHIATRIC: Normal mentation, no agitation. Portions of this note were transcribed by a medical doctor nuclear medicine. I personally performed a history, physical exam, medical decision making, and confirmed accuracy of information the transcribed note. ED Course: 83 year old male with recent diagnosis of myelodysplastic disease presents with weakness, shortness of breath. He is markedly pale on exam and has dry mucous membranes. His abdomen feels somewhat firm throughout, but is nontender. Plan for EKG, labs including CBC, chemistries, coag panel, troponin. 12-LEAD EKG: Please see the full report in [facility]. My interpretation: Sinus tachycardia, RBB. Reviewed laboratory studies. Troponin negative. Hemoglobin and hematocrit are 6.6 and 19.8 respectively. RBCs and platelets low. Plan for type and screen. Plan to administer 2 units of packed red blood cells. 19:[address] Spoke with hospitalist service. Dr. Hagen accepts admission for weakness, anemia, myelodysplastic disease. MDM: Differential diagnoses for the patient's symptom complex was considered including but not limited to myelodysplastic disorder, acute blood loss anemia, gastrointestinal bleeding, renal disease. - Data Points Laboratory Results: Laboratory Results 10/23/18 18:41 10/23/18 18:41 10/23/18 10/23/18 10/23/18 18:51 18:47 18:41 WBC RBC Hgb POC Hgb 6.5 gm/dL L gm/dL (13.7-17.5) Hct POC Hct 19 % L % (40-51) MCV MCH MCHC RDW Plt Count MPV Neut % (Auto) Lymph % (Auto) Crawford % (Auto) Eos % (Auto) Baso % (Auto) Nucleat RBC Rel Count Absolute Neuts (auto) Absolute Lymphs (auto) Absolute Monos (auto) Absolute Eos (auto) Absolute Basos (auto) Absolute Nucleated RBC Immature Gran % Seg Neutrophils % Band Neutrophils % Lymphocytes % Monocytes % Eosinophils % Basophils % Metamyelocytes % Myelocytes % Promyelocytes % Blast Cells % Immature Gran # Absolute Seg Neuts Absolute Band Neuts Absolute Lymphocytes Absolute Monocytes Absolute Eosinophils Absolute Basophils Absolute Metamyelocyte Absolute Myelocytes Absolute Promyelocytes Absolute Plasma Cells Atypical Lymphocytes Absolute Blast Cells Plasma Cells % Platelet Estimate Elliptocytes Smear Review By Absolute Retic Percent Retic Haptoglobin Pending PT INR APTT POC Sodium 140 mEq/L mEq/L (135-145) Sodium POC Potassium 3.9 mEq/L mEq/L (3.3-5.0) Potassium POC Chloride 105 mEq/L mEq/L (97-110) Chloride Carbon Dioxide POC Total CO2 19 mEq/L L mEq/L (22-31) Anion Gap POC BUN 15 mg/dL mg/dL (7-23) BUN Creatinine POC Creatinine 1.2 mg/dL mg/dL (0.7-1.3) Estimated GFR Glucose POC Glucose 110 mg/dL H mg/dL (70-100) Calcium Lactate Dehydrogenase POC Troponin I 0.00 ng/mL ng/mL (0.00-0.08) Patient ABO/Rh Antibody Screen Crossmatch IS Only 10/23/18 10/23/18 10/23/18 18:41 18:41 18:41 WBC RBC Hgb POC Hgb Hct 19.6 % L % (40.0-51.0) POC Hct MCV MCH MCHC RDW Plt Count MPV Neut % (Auto) Lymph % (Auto) Crawford % (Auto) Eos % (Auto) Baso % (Auto) Nucleat RBC Rel Count Absolute Neuts (auto) Absolute Lymphs (auto) Absolute Monos (auto) Absolute Eos (auto) Absolute Basos (auto) Absolute Nucleated RBC Immature Gran % Seg Neutrophils % Band Neutrophils % Lymphocytes % Monocytes % Eosinophils % Basophils % Metamyelocytes % Myelocytes % Promyelocytes % Blast Cells % Immature Gran # Absolute Seg Neuts Absolute Band Neuts Absolute Lymphocytes Absolute Monocytes Absolute Eosinophils Absolute Basophils Absolute Metamyelocyte Absolute Myelocytes Absolute Promyelocytes Absolute Plasma Cells Atypical Lymphocytes Absolute Blast Cells Plasma Cells % Platelet Estimate Elliptocytes Smear Review By Absolute Retic 0.020 10^6/uL L 10^6/uL (0.050-0.117) Percent Retic 1.16 % % (0.98-2.67) Haptoglobin PT INR APTT POC Sodium Sodium POC Potassium Potassium POC Chloride Chloride Carbon Dioxide POC Total CO2 Anion Gap POC BUN BUN Creatinine POC Creatinine Estimated GFR Glucose POC Glucose Calcium Lactate Dehydrogenase 531 IU/L IU/L (313-618) POC Troponin I Patient ABO/Rh A POSITIVE Antibody Screen NEGATIVE Crossmatch IS Only See Detail 10/23/18 10/23/18 10/23/18 18:41 18:41 18:41 WBC 3.45 10^3/uL L 10^3/uL (3.80-9.50) RBC 1.81 10^6/uL L 10^6/uL (4.40-6.38) Hgb 6.6 g/dL L g/dL (13.7-17.5) POC Hgb Hct 19.8 % L % (40.0-51.0) POC Hct MCV 109.4 fL H fL (81.5-99.8) MCH 36.5 pg H pg (27.9-34.1) MCHC 33.3 g/dL g/dL (32.4-36.7) RDW 17.6 % H % (11.5-15.2) Plt Count 90 10^3/uL L 10^3/uL (150-400) MPV 9.8 fL fL (8.7-11.7) Neut % (Auto) Not Reported Lymph % (Auto) Not Reported Crawford % (Auto) Not Reported Eos % (Auto) Not Reported Baso % (Auto) Not Reported Nucleat RBC Rel Count Not Reported Absolute Neuts (auto) Not Reported Absolute Lymphs (auto) Not Reported Absolute Monos (auto) Not Reported Absolute Eos (auto) Not Reported Absolute Basos (auto) Not Reported Absolute Nucleated RBC Not Reported Immature Gran % Not Reported Seg Neutrophils % 26.0 % % Band Neutrophils % 0.0 % % Lymphocytes % 37.0 % % Monocytes % 31.0 % % Eosinophils % 0.0 % % Basophils % 1.0 % % Metamyelocytes % 1.0 % % Myelocytes % 0.0 % % Promyelocytes % 0.0 % % Blast Cells % 4.0 % % Immature Gran # Not Reported Absolute Seg Neuts 0.90 10^3/uL L 10^3/uL (1.70-6.50) Absolute Band Neuts 0.00 10^3/uL 10^3/uL (0.00-0.70) Absolute Lymphocytes 1.28 10^3/uL 10^3/uL (1.00-3.00) Absolute Monocytes 1.07 10^3/uL H 10^3/uL (0.30-0.80) Absolute Eosinophils 0.00 10^3/uL L 10^3/uL (0.03-0.40) Absolute Basophils 0.03 10^3/uL 10^3/uL (0.02-0.10) Absolute Metamyelocyte 0.03 10^3/mL H 10^3/mL (0.00-0.00) Absolute Myelocytes 0.00 10^3/mL 10^3/mL (0.00-0.00) Absolute Promyelocytes 0.00 10^3/uL 10^3/uL (0.00-0.00) Absolute Plasma Cells 0.00 10^3/uL 10^3/uL (0.00-0.00) Atypical Lymphocytes 1+ H Absolute Blast Cells 0.14 10^3/uL H 10^3/uL (0.00-0.00) Plasma Cells % 0.0 % % Platelet Estimate DECREASED L (ADEQ) Elliptocytes 2+ H Smear Review By Pending Absolute Retic Percent Retic Haptoglobin PT 36.3 SEC H SEC (12.0-15.0) INR 3.69 H (0.83-1.16) APTT 71.5 SEC H SEC (23.0-38.0) POC Sodium Sodium 135 mEq/L mEq/L (135-145) POC Potassium Potassium 4.1 mEq/L mEq/L (3.5-5.2) POC Chloride Chloride 108 mEq/L mEq/L (97-110) Carbon Dioxide 20 mEq/l L mEq/l (22-31) POC Total CO2 Anion Gap 7 mEq/L mEq/L (6-14) POC BUN BUN 18 mg/dL mg/dL (7-23) Creatinine 1.1 mg/dL mg/dL (0.7-1.3) POC Creatinine Estimated GFR > 60 Glucose 112 mg/dL H mg/dL (70-100) POC Glucose Calcium 8.2 mg/dL L mg/dL (8.5-10.4) Lactate Dehydrogenase POC Troponin I Patient ABO/Rh Antibody Screen Crossmatch IS Only Medications Given: Discontinued Medications Sodium Chloride (Ns) 1,000 mls @ 0 mls/hr IV EDNOW ONE; Wide Open PRN Reason: Protocol Stop: 10/23/18 17:47 Last Admin: 10/23/18 17:54 Dose: 1,000 mls Point of Care Test Results: CBC CBC Collection Date 10/23/18 CBC Collection Time 18:45 Chemistry 10/23/18 10/23/18 18:51 18:47 POC Sodium 140 mEq/L mEq/L (135-145) POC Potassium 3.9 mEq/L mEq/L (3.3-5.0) POC Chloride 105 mEq/L mEq/L (97-110) POC Total CO2 19 mEq/L L mEq/L (22-31) POC BUN 15 mg/dL mg/dL (7-23) POC Creatinine 1.2 mg/dL mg/dL (0.7-1.3) POC Glucose 110 mg/dL H mg/dL (70-100) POC Troponin I 0.00 ng/mL ng/mL (0.00-0.08) ISTAT H&H 10/23/18 18:51 POC Hgb 6.5 gm/dL L gm/dL (13.7-17.5) POC Hct 19 % L % (40-51) General Time Seen by Provider: 10/23/18 17:29 Initial Vital Signs: Initial Vital Signs Temperature (C) 36.3 C 10/23/18 17:14 Heart Rate 118 H 10/23/18 17:14 Respiratory Rate 22 H 10/23/18 17:14 Blood Pressure 109/58 L 10/23/18 17:14 O2 Sat (%) 97 10/23/18 17:14 O2 Delivery Mode Room Air Allergies/Adverse Reactions: Sulfa (Sulfonamide Antibiotics) [Sulfa(Sulfonamide Antibiotics)] Allergy ( Verified 10/23/18 17:13) CAUSED KIDNEY PROB CHILD Home Medications: Medication Instructions Recorded Cholecalciferol Vit D3 [Vitamin D3 2,000 units PO HS 09/05/12 (*)] Lisinopril/Hctz 20/12.5MG 1 ea PO HS 09/05/12 [Zestoretic/Prinzide 20/12.5MG (*)] Levothyroxine [Synthroid 25 mcg 25 mcg PO DAILY06 03/04/16 (*)] Mirtazapine [Remeron] 30 mg PO HS 03/04/16 Cyanocobalamin [Vitamin B12 (*)] 1,000 mcg PO DAILY 09/29/18 Pantoprazole Sodium [Protonix 40mg 40 mg PO BIDAC 09/29/18 (*)] Psyllium Husk (with Sugar) 1 each PO BID 09/29/18 [Metamucil Packet] Ranitidine HCl 300 mg PO HS 09/29/18 Warfarin Sodium [Coumadin 5MG (*)] 2.5 mg PO MOWETHFRSA@16 09/29/18 Warfarin Sodium [Coumadin 5MG (*)] 5 mg PO SUTU@16 09/29/18 Ascorbic Acid [Vitamin C 500 mg 500 mg PO BID 10/23/18 (*)] Ferrous Sulfate [Ferrous Sulf 325 325 mg PO BID 10/23/18 MG (*)] Departure - Departure Disposition: [facility] Acute Clinical Impression: Weakness, Shortness of breath, Myelodysplasia (myelodysplastic syndrome) Anemia Qualifiers: Anemia type: unspecified type Qualified Code(s): D64.9 - Anemia, unspecified Condition: Serious Report Scribed for: Nery Bowie Report Scribed by: Silvina Velázquez Date of Report: 10/23/18 Time of Report: 19:41
[2018-10-23] MEDS ORDERED: NS 1,000 ML IV ONE (17:46)
[2018-10-23 18:53] LABS: PLATELET COUNT 90 10^3/uL (150-400)
[2018-10-23 19:01] LABS: INR 3.69 (0.83-1.16); PROTIME(PATIENT) 36.3 SEC (12.0-15.0)
[2018-10-23] MEDS ORDERED: ONDANSETRON 4 MG/2 ML VIAL IVP PRN (19:52)
[2018-10-23] MEDS ORDERED: HYDROmorphONE/DILAUDID 1 MG/ML INJ IVP PRN (19:52)
--- NOTE | 2018-10-23 20:38 | PDGENHP ---
History and Physical - Chief Complaint fatigue - History of Present Illness 83yo M with recently diagnosed MDS, anemia, PE on warfarin presents to ED at request of his chief payroll clerk for abnormal labs. He was hospitalized 09/2018 for fatigue and was found to be pancytopenic. Underwent bone marrow biopsy with results showing MDS with excess blasts. He was discharged to follow up in oncology clinic and actually has his appointment tomorrow with Dr Aure Wheatley. He had outpatient labs today which showed a hemoglobin of 6.6 which was down from 8.6 on 10/03. Dr Smiley informed him to come in for evaluation. The patient adamantly denies having any GI blood loss, hematuria, epistaxis, hemoptysis. He has been taking his warfarin and his INR was 4.9 a few days ago; his pharmacist instructed him to reduce his warfarin dose. He reports continuing to be fatigued and slightly more short of breath than he was last week. No dizziness or chest pain. He was type and crossed and a PRBC transfusion was initiated in the ED. He is being admitted for further evaluation and monitoring. History Information - Allergies/Home Medication List Allergies/Adverse Reactions: Sulfa (Sulfonamide Antibiotics) [Sulfa(Sulfonamide Antibiotics)] Allergy ( Verified 10/23/18 17:13) CAUSED KIDNEY PROB CHILD Home Medications: Cholecalciferol Vit D3 [Vitamin D3 (*)] 2,000 units PO HS 09/05/12 [Last Taken 10/22/18] Lisinopril/Hctz 20/12.5MG [Zestoretic/Prinzide 20/12.5MG (*)] 1 ea PO HS [Last Taken 10/22/18] Levothyroxine [Synthroid 25 mcg (*)] 25 mcg PO DAILY06 03/04/16 [Last Taken 02/03] Mirtazapine [Remeron] 30 mg PO HS 03/04/16 [Last Taken 10/22/18] Cyanocobalamin [Vitamin B12 (*)] 1,000 mcg PO DAILY 09/29/18 [Last Taken ] Pantoprazole Sodium [Protonix 40mg (*)] 40 mg PO BIDAC 09/29/18 [Last Taken 02/03] Psyllium Husk (with Sugar) [Metamucil Packet] 1 each PO BID 09/29/18 [Last Taken 10/23/18 09:00] Ranitidine HCl 300 mg PO HS 09/29/18 [Last Taken 10/22/18] Warfarin Sodium [Coumadin 5MG (*)] 2.5 mg PO MOWETHFRSA@16 09/29/18 [Last Taken 10/22/18] Warfarin Sodium [Coumadin 5MG (*)] 5 mg PO SUTU@16 09/29/18 [Last Taken 10/21/18 ] Ascorbic Acid [Vitamin C 500 mg (*)] 500 mg PO BID 10/23/18 [Last Taken 09:00] Ferrous Sulfate [Ferrous Sulf 325 MG (*)] 325 mg PO BID 10/23/18 [Last Taken 02/03 09:00] I have personally reviewed and updated: family history, medical history, social history, surgical history - Past Medical History Additional medical history: MDS, pulmonary emboli x2 on warfarin, TIA (02/2006), HTN, GERD, mild pulm HTN, DVT, hypothyroidism, BPH, chronic diastolic CHF - Surgical History Additional surgical history: cholecystectomy, benign spinal cord tumor excisoin - Family History Additional family history: father - of stomach cancer at age 72, mother - from complications of a stroke at age 73 - Social History Smoking Status: Never smoked Alcohol Use: None Drug Use: None Additional social history: ( passed in 2011), lives alone, has 4 children Review of Systems Review of Systems: ROS: 10pt was reviewed & negative except for what was stated in HPI & below Physical Exam Physical Exam: Temp Pulse Resp BP Pulse Ox 36.8 C 101 H 16 129/62 H 98 10/23/18 20:30 10/23/18 20:30 10/23/18 20:30 10/23/18 20:30 10/23/18 20:30 O2 (L/minute) 2 Constitutional: no apparent distress, appears nourished, not in pain Eyes: PERRL, anicteric sclera, EOMI, pale conjunctiva Ears, Nose, Mouth, Throat: moist mucous membranes Cardiovascular: regular rate and rhythym, no murmur, rub, or gallop, No edema Respiratory: no respiratory distress, no rales or rhonchi, clear to auscultation Gastrointestinal: normoactive bowel sounds, soft, non-tender abdomen, no palpable masses Genitourinary: no bladder fullness, no bladder tenderness Skin: other (pale appearing) Musculoskeletal: full muscle strength Neurologic: AAOx3 Psychiatric: interacting appropriately Lab Data & Imaging Review 10/23/18 18:41 10/23/18 18:41 WBC 3.45 10^3/uL (3.80-9.50) L 10/23/18 18:41 RBC 1.81 10^6/uL (4.40-6.38) L 10/23/18 18:41 Hgb 6.6 g/dL (13.7-17.5) L 10/23/18 18:41 POC Hgb 6.5 gm/dL (13.7-17.5) L 10/23/18 18:51 Hct 19.8 % (40.0-51.0) L 10/23/18 18:41 POC Hct 19 % (40-51) L 10/23/18 18:51 MCV 109.4 fL (81.5-99.8) H 10/23/18 18:41 MCH 36.5 pg (27.9-34.1) H 10/23/18 18:41 MCHC 33.3 g/dL (32.4-36.7) 10/23/18 18:41 RDW 17.6 % (11.5-15.2) H 10/23/18 18:41 Plt Count 90 10^3/uL (150-400) L 10/23/18 18:41 MPV 9.8 fL (8.7-11.7) 10/23/18 18:41 Neut % (Auto) Not Reported 10/23/18 18:41 Lymph % (Auto) Not Reported 10/23/18 18:41 [place] % (Auto) Not Reported 10/23/18 18:41 Eos % (Auto) Not Reported 10/23/18 18:41 Baso % (Auto) Not Reported 10/23/18 18:41 Nucleat RBC Rel Count Not Reported 10/23/18 18:41 Absolute Neuts (auto) Not Reported 10/23/18 18:41 Absolute Lymphs (auto) Not Reported 10/23/18 18:41 Absolute Monos (auto) Not Reported 10/23/18 18:41 Absolute Eos (auto) Not Reported 10/23/18 18:41 Absolute Basos (auto) Not Reported 10/23/18 18:41 Absolute Nucleated RBC Not Reported 10/23/18 18:41 Immature Gran % Not Reported 10/23/18 18:41 Seg Neutrophils % 26.0 % 10/23/18 18:41 Band Neutrophils % 0.0 % 10/23/18 18:41 Lymphocytes % 37.0 % 10/23/18 18:41 Monocytes % 31.0 % 10/23/18 18:41 Eosinophils % 0.0 % 10/23/18 18:41 Basophils % 1.0 % 10/23/18 18:41 Metamyelocytes % 1.0 % 10/23/18 18:41 Myelocytes % 0.0 % 10/23/18 18:41 Promyelocytes % 0.0 % 10/23/18 18:41 Blast Cells % 4.0 % 10/23/18 18:41 Immature Gran # Not Reported 10/23/18 18:41 Absolute Seg Neuts 0.90 10^3/uL (1.70-6.50) L 10/23/18 18:41 Absolute Band Neuts 0.00 10^3/uL (0.00-0.70) 10/23/18 18:41 Absolute Lymphocytes 1.28 10^3/uL (1.00-3.00) 10/23/18 18:41 Absolute Monocytes 1.07 10^3/uL (0.30-0.80) H 10/23/18 18:41 Absolute Eosinophils 0.00 10^3/uL (0.03-0.40) L 10/23/18 18:41 Absolute Basophils 0.03 10^3/uL (0.02-0.10) 10/23/18 18:41 Absolute Metamyelocyte 0.03 10^3/mL (0.00-0.00) H 10/23/18 18:41 Absolute Myelocytes 0.00 10^3/mL (0.00-0.00) 10/23/18 18:41 Absolute Promyelocytes 0.00 10^3/uL (0.00-0.00) 10/23/18 18:41 Absolute Plasma Cells 0.00 10^3/uL (0.00-0.00) 10/23/18 18:41 Atypical Lymphocytes 1+ H 10/23/18 18:41 Absolute Blast Cells 0.14 10^3/uL (0.00-0.00) H 10/23/18 18:41 Plasma Cells % 0.0 % 10/23/18 18:41 Platelet Estimate DECREASED (ADEQ) L 10/23/18 18:41 Elliptocytes 2+ H 10/23/18 18:41 PT 36.3 SEC (12.0-15.0) H 10/23/18 18:41 INR 3.69 (0.83-1.16) H 10/23/18 18:41 APTT 71.5 SEC (23.0-38.0) H 10/23/18 18:41 POC Sodium 140 mEq/L (135-145) 10/23/18 18:51 Sodium 135 mEq/L (135-145) 10/23/18 18:41 POC Potassium 3.9 mEq/L (3.3-5.0) 10/23/18 18:51 Potassium 4.1 mEq/L (3.5-5.2) 10/23/18 18:41 POC Chloride 105 mEq/L (97-110) 10/23/18 18:51 Chloride 108 mEq/L (97-110) 10/23/18 18:41 Carbon Dioxide 20 mEq/l (22-31) L 10/23/18 18:41 POC Total CO2 19 mEq/L (22-31) L 10/23/18 18:51 Anion Gap 7 mEq/L (6-14) 10/23/18 18:41 POC BUN 15 mg/dL (7-23) 10/23/18 18:51 BUN 18 mg/dL (7-23) 10/23/18 18:41 Creatinine 1.1 mg/dL (0.7-1.3) 10/23/18 18:41 POC Creatinine 1.2 mg/dL (0.7-1.3) 10/23/18 18:51 Estimated GFR > 60 10/23/18 18:41 Glucose 112 mg/dL (70-100) H 10/23/18 18:41 POC Glucose 110 mg/dL (70-100) H 10/23/18 18:51 Calcium 8.2 mg/dL (8.5-10.4) L 10/23/18 18:41 Lactate Dehydrogenase 531 IU/L (313-618) 10/23/18 18:41 POC Troponin I 0.00 ng/mL (0.00-0.08) 10/23/18 18:47 Patient ABO/Rh A POSITIVE 10/23/18 18:41 Antibody Screen NEGATIVE 10/23/18 18:41 Crossmatch IS Only See Detail 10/23/18 18:41 Assessment & Plan Assessment: 83yo M with recently diagnosed MDS, anemia, PE on warfarin presents to ED at request of his chief payroll clerk for low hemoglobin level. Plan: 1. Acute on chronic anemia: Suspect due to MDS. No e/o GI bleeding. GI consulted last admission and did not think egd/colonoscopy necessary. - 2 units of PRBCs have been ordered for transfusion - Repeat CBC in AM 2. MDS: New diagnosis as of 09/2018 - Alert oncology of admission in AM 3. Fatigue, generalized weakness: Likely related to #1. - PT/OT 4. Dyspnea, acute hypoxia: He is saturating in high 90s on 2L. - I suspect he can be weaned from supplemental oxygen 5. H/o PE: INR supratherapeutic - Hold warfarin this evening, check INR in AM 6. Thrombocytopenia, leukopenia: Related to MDS. Monitor. 7. Hypothyroidism: Continue LT4 replacement. 8. HTN: Continue home meds. VTE ppx: oral anticoagulation Diet: regular Code: DNR Dispo: Admit under observation
--- NOTE | 2018-10-23 23:22 | CPEKG ---
Test Reason : OPEN Blood Pressure : / mmHG Vent. Rate : 100 BPM Atrial Rate : 100 BPM P-R Int : 111 ms QRS Dur : 138 ms QT Int : 364 ms P-R-T Axes : 047 013 014 degrees QTc Int : 470 ms Sinus tachycardia Right bundle branch block Confirmed by Nery Bowie ([id number]) on 10/23/2018 11:21:57 PM Referred By: Nery Bowie Confirmed By:Nery Bowie
[2018-10-24] MEDS: ONDANSETRON DISINTEGRATING 4 MG TAB PO PRN (02:18)
[2018-10-24] MEDS: LEVOTHYROXINE 25 MCG TAB PO SCH (05:34)
[2018-10-24 06:10] LABS: PLATELET COUNT 76 10^3/uL (150-400)
[2018-10-24 06:18] LABS: INR 3.57 (0.83-1.16); PROTIME(PATIENT) 35.4 SEC (12.0-15.0)
[2018-10-24] MEDS ORDERED: PSYLLIUM METAMUCIL 1 PKT PO SCH (09:00)
[2018-10-24] MEDS: PSYLLIUM METAMUCIL 1 PKT PO SCH ×2 (09:10→20:06)
[2018-10-24] MEDS: FERROUS SULFATE 325 MG TAB PO SCH ×2 (09:10→20:06)
[2018-10-24] MEDS: PANTOPRAZOLE SODIUM 40 MG TAB PO SCH ×2 (09:11→17:46)
--- NOTE | 2018-10-24 10:38 | WOCRNPDOC ---
WOCRN Advanced Assessment Note - Skin Integrity Problem, Advanced Assess Left Anterior Ankle Pressure Injury Dressing Type: Open to Air Exudate Amount: None Donna Wound Tissue: Erythema, Non-blanching Donna Wound Swelling: Moderate Wound Bed Constitution: Dried Exudate Site Measurement - Head-to-Toe Length X Width X Depth (cm): 0.5x0.7x0.2 Pressure Injury Stage: Stage 3, Trommel Tender Related Pressure Injury (TEDS ) Pressure Injury Present on Admit: Yes Skin Integrity Problem Comment: Per patient area is not tender, but it is swollen donna wound. It is likely from the crease in the TEDS. Wound care will follow.
[2018-10-24] MEDS ORDERED: BISACODYL 10 MG SUPP PR PRN (12:18)
[2018-10-24] MEDS ORDERED: LACTULOSE 20 GM/30 ML UDCUP PO PRN (12:18)
[2018-10-24] MEDS ORDERED: NS 250 ML IV ONE (12:31)
--- NOTE | 2018-10-24 12:33 | HOSPPROG ---
Hospitalist Progress Note Assessment/Plan: 83yo M with recently diagnosed MDS, anemia, PE on warfarin presents to ED at request of his population health manager for low hemoglobin level. * Acute on chronic anemia: Suspect due to MDS - hypotensive now, will give NS bolus and give 2 units of FFP - 2 units of PRBCs have been given - spoke w Dr Smiley who will see Ta later today, he has no melena, hematochezia *MDS: New diagnosis as of 09/2018 -spoke w Dr High and he will see *left ankle skin breakdown -appreciate wound care seeing him *fatigue and weakness -due to the above *hx of PE -INR is supratherapeutic -will temporarily reverse INR w FFP -if continues to bleed, may need to consider no further Coumadin -will discuss w oncology if a filter may be indicated *thrombocytopenia, leukopenia -secondary to MDS *hypothyroidism -cont replacement htn -hypotensive this afternoon -will write parameters as when to hold his medications *plan: Dr High and Dr Smiley to see, he is hypotensive and will need further blood products. He will require another midnight stay for close monitoring Subjective: Ta said he was feeling poorly, but feeling better now after getting the iv fluids. Objective: Vital Signs Temp Pulse Resp BP Pulse Ox 36.7 C 88 18 91/43 L 95 10/24/18 12:00 10/24/18 12:00 10/24/18 12:00 10/24/18 12:00 10/24/18 12:00 Laboratory Results 10/24/18 05:14 10/24/18 05:14 10/23/18 10/24/18 10/25/18 05:59 05:59 05:59 Intake Total 1400 Output Total 400 150 Balance 1000 -150 PT 35.4 SEC (12.0-15.0) H 10/24/18 05:14 INR 3.57 (0.83-1.16) H 10/24/18 05:14 - Physical Exam Constitutional: chronically ill appearing Eyes: PERRL Ears, Nose, Mouth, Throat: hearing normal Cardiovascular: regular rate and rhythym Respiratory: no respiratory distress Gastrointestinal: normoactive bowel sounds Skin: No normal color (pale) Musculoskeletal: generalized weakness Neurologic: AAOx3 Psychiatric: interacting appropriately ICD10 Worksheet Patient Problems: Problems Problem Status Onset Anemia Acute Myelodysplasia (myelodysplastic syndrome) Acute Shortness of breath Acute Weakness Acute Cerebral vascular accident Acute Dyspnea Acute Intradural tumor Acute Pulmonary embolism Acute
--- NOTE | 2018-10-24 16:25 | GCON ---
[f rep st] CONSULTATION MEDICAL ONCOLOGY/HEMATOLOGY FOLLOWUP CONSULTATION REFERRING PHYSICIAN: Patsy Ram NP REASON FOR CONSULTATION: Ongoing management of myelodysplastic syndrome with excess blasts-2. RECOMMENDATIONS: 1. Agree with transfusion of red cells to try to keep the patient's hemoglobin at approximately 8. 2. Agree with fresh frozen plasma transfusion to try to keep the patient's INR less than 2 for the m oment. 3. The patient's family wish to discuss whether best supportive care with transfusion and erythropoi etin is more appropriate or whether he should have a trial of Vidaza. Dr. Aure Wheatley is planning on d iscussing this with the patient and his family this evening. 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 This was diagnosed on a bone marrow biopsy that was obta ined at that time. 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 The patient comes in now with fatigue. He was also significantly anemic in nature with a hemoglobin of 6.6. He was also short of breath. He is admitted for transfusion of fluids and correction of his over anticoagulation with fresh frozen plasma. I spoke with the patient's family today about his bone marrow biopsy results and the complex cytogene tics. We talked about the treatment options, best supportive care versus Vidaza. I discussed with paxton sheikh the importance of functional status and he and his family both confirm at this point that he is in bed, probably 20 hours a day. This places him at an ECOG 3 and places him at increased risk for com plications and decreased benefit from systemic chemotherapies. If his functional status improves, I think we can consider Vidaza, but if that does not happen and then best supportive care I think his best way to go as far as his treatment is concerned. Again, this will be further discussed with Dr. Wheatley evening. PAST MEDICAL HISTORY: Remarkable for pulmonary embolism x2. He has been maintained on warfarin. He also had a TIA. He has hypertension, gastroesophageal reflux, pulmonary hypertension, history of DV T, hypothyroidism, benign prostatic hypertrophy, and diastolic CHF. PAST SURGERIES: Include benign spinal cord tumor excision and cholecystectomy. FAMILY HISTORY: Father apparently of stomach cancer at age 72 and his mother of a complica tions of stroke at age 73. SOCIAL HISTORY: He does not smoke. His does not use alcohol. He is a , his in . He has 4 children. REVIEW OF SYSTEMS: Remarkable for fatigue, shortness of breath, gastroesophageal reflux, and general ized weakness. His 10 system review is, otherwise, unremarkable. PHYSICAL EXAMINATION: GENERAL: Shows a pale, but alert white male in mild distress. His family is at the bedside. NECK: No adenopathy. LUNGS: Reveal no rales at this time. CARDIAC: Shows regula r rate and rhythm. ABDOMEN: Soft abdomen without significant tenderness. LOWER EXTREMITIES: Show 2+ edema bilaterally. SKIN: Shows pallor. LABORATORY EXAM: Today shows a white count of 2.79 with a hemoglobin of 7.6, platelet count of 76,00 0, and 3% circulating blasts. His INR is above target at 3.57. His albumin is low at 2.4 with a cre atinine of 1.1. /[id number]/MODL
--- NOTE | 2018-10-24 16:41 | PDMN ---
Medical Necessity Medical necessity: MCG MGHEM Hematology: 83 yo w/ recent dx MDS presents w/ fatigue and SOB. Pt is pancytopenic. Initially OBS for workup, PRBC transfusion. During OBS status pt became hypotensive requiring NS bolus and 2U FFP. Oncology notified and will see pt. Pt requires additional MN for ongoing monitoring w/ serial labs, monitor for bleeding, transfusions as needed. Hx MDS , PE on warfarin, TIA, HTN, DVT dCHF, hypothyroid, pulm HTN. Change to IP status 10/24/18@1555 per MD order.
--- NOTE | 2018-10-24 18:16 | ASMTCMCOM ---
CM Note CM Note Notes: Pt asked to come in to hospital by MD for abnormal labs. Pt has new diagnosis of MDS Myelodysplastic syndrome, he had oncology consult. Therapies pending, pt lives alone and got a ankle pressure sore from not changing tera hose. DC Plan: TBD Date Signed: 10/24/2018 06:15 PM Electronically Signed By:Mary Ramirez RN
--- NOTE | 2018-10-24 18:29 | SOAPPROG ---
SOAP Progress Note Assessment/Plan: Assessment:Plan: see full dictated consutl jeremy inna Chappell well known to me form years as outpt new anemia on anti-coagulation had EGD recently last colon approx 5 years ago never had sb capsule study will need repeat GI studies when stable John austin MD 10/24/18 18:28 Objective: Vital Signs Temp Pulse Resp BP Pulse Ox 36.6 C 93 18 113/61 93 10/24/18 16:00 10/24/18 16:00 10/24/18 16:00 10/24/18 16:00 10/24/18 16:00 10/23/18 10/24/18 10/25/18 05:59 05:59 05:59 Output Total 150 Balance -150 PT 35.4 SEC (12.0-15.0) H 10/24/18 05:14 INR 3.57 (0.83-1.16) H 10/24/18 05:14 ICD10 Worksheet Patient Problems: Problems Problem Status Onset Anemia Acute Myelodysplasia (myelodysplastic syndrome) Acute Shortness of breath Acute Weakness Acute Cerebral vascular accident Acute Dyspnea Acute Intradural tumor Acute Pulmonary embolism Acute
[2018-10-24] MEDS: MIRTAZAPINE 30 MG TAB PO SCH (20:06)
[2018-10-24] MEDS: SENNOSIDES/DOCUSATE SODIUM TAB PO SCH (20:06)
[2018-10-24] MEDS: FAMOTIDINE 20 MG TAB PO SCH (20:06)
[2018-10-24] MEDS: LISINOPRIL/HCTZ 20/12.5MG 1 EA TAB PO SCH (20:06)
[2018-10-25] MEDS: LEVOTHYROXINE 25 MCG TAB PO SCH (05:07)
[2018-10-25 06:03] LABS: INR 2.86 (0.83-1.16); PROTIME(PATIENT) 29.9 SEC (12.0-15.0)
[2018-10-25] MEDS ORDERED: ACETAMINOPHEN 325 MG TAB PO ONE (07:59)
[2018-10-25] MEDS: POLYETHYLENE GLYCOL 3350 17 GM PKT PO SCH (09:21)
[2018-10-25] MEDS: FERROUS SULFATE 325 MG TAB PO SCH ×2 (09:21→20:11)
[2018-10-25] MEDS: SENNOSIDES/DOCUSATE SODIUM TAB PO SCH (09:21)
[2018-10-25] MEDS: PANTOPRAZOLE SODIUM 40 MG TAB PO SCH ×2 (09:21→19:00)
[2018-10-25] MEDS: PSYLLIUM METAMUCIL 1 PKT PO SCH (09:21)
[2018-10-25] MEDS ORDERED: PEG 3350/NA SULF,BICARB,CL/KCL (GAVILYTE-G) 4000 ML BTL PO ONE ×2 (13:18→19:00)
--- NOTE | 2018-10-25 15:36 | ASMTCMCOM ---
CM Note CM Note Notes: Met with pt and family about [place]care [place]. Pt is reluctant but family is encouraging the extra help, CM gave pt a list and will f/u in am for choice. CM left message for Carol Bo ([phone]), [employer] at his PCP office. [place] Plan: Home Care Date Signed: 10/25/2018 03:33 PM Electronically Signed By:Mary Ramirez RN
--- NOTE | 2018-10-25 16:15 | SOAPPROG ---
[facility] Progress Note Assessment/Plan: Assessment: - MDS-EB-2 - He needed a unit of PRBC today. He still has some abdominal pain. For colonoscopy tomorrow. Ta's daughter (who brings him to appointments) says that she needs to change his appointments to a provider who is in the office on . I gave her the names of our providers who are regularly in the office on (Drs. Drummond, Radha, Jyoti, and Anila). GI Bleed - Dr. Smiley to do a colonoscopy in the AM. Anemia - he will need to start EPO as an outpatient. Plan: Txn follow counts colonoscopy in the AM Subjective: Fatigued this AM. Better this PM s/p txn Objective: Vital Signs Temp Pulse Resp BP Pulse Ox 36.4 C 87 18 123/60 H 95 10/25/18 15:22 10/25/18 15:22 10/25/18 15:22 10/25/18 15:22 10/25/18 15:22 Laboratory Results 10/25/18 04:55 10/23/18 10/24/18 10/25/18 23:59 23:59 23:59 Output Total 300 350 Balance -300 -350 PT 29.9 SEC (12.0-15.0) H 10/25/18 04:55 INR 2.86 (0.83-1.16) H 10/25/18 04:55 Physical Exam - Physical Exam General Appearance: alert, no apparent distress Skin: warm/dry, pallor Neuro/Psych: alert, normal mood/affect ICD10 Worksheet Patient Problems: Problems Problem Status Onset Anemia Acute Myelodysplasia (myelodysplastic syndrome) Acute Shortness of breath Acute Weakness Acute Cerebral vascular accident Acute Dyspnea Acute Intradural tumor Acute Pulmonary embolism Acute
--- NOTE | 2018-10-25 17:51 | HOSPPROG ---
Hospitalist Progress Note Assessment/Plan: 83yo M with recently diagnosed MDS, anemia, PE on warfarin presents to ED at request of his self pay representative for low hemoglobin level. * Acute on chronic anemia: Suspect due to MDS vs GI bleed - 3 units of PRBCs have been given + 2 units of FFP have been given *concern for GI bleed -to have a colonoscopy tomorrow and poss an EGD -FFP on hold and to be transfused if INR is >2 -prep tonight *MDS: New diagnosis as of 09/2018 -Dr High seeing him *left ankle skin breakdown -appreciate wound care seeing him *fatigue and weakness -due to the above *hx of PE -INR is therapeutic -was given two units of FFP for supratherapeutic INR *thrombocytopenia, leukopenia -secondary to MDS *hypothyroidism -cont replacement htn -bp stable -has some hypotension yesterday- much improved with blood products *plan: Reviewed his care w Dr Smiley, colonoscopy and poss EGD in the morning. Will make him NPO and have a unit of FFP on hold if needed. Also, spoke w Ta that he would benefit from home care-he has been declining this, but had struggled at home on last dc. Subjective: Ta is not feeling well today, has some malaise and no appetite. Objective: Vital Signs Temp Pulse Resp BP Pulse Ox 36.4 C 87 18 123/60 H 95 10/25/18 15:22 10/25/18 15:22 10/25/18 15:22 10/25/18 15:22 10/25/18 15:22 Laboratory Results 10/25/18 04:55 10/24/18 10/25/18 10/26/18 05:59 05:59 05:59 Output Total 475 175 Balance -475 -175 PT 29.9 SEC (12.0-15.0) H 10/25/18 04:55 INR 2.86 (0.83-1.16) H 10/25/18 04:55 - Physical Exam Constitutional: not in pain, chronically ill appearing Eyes: PERRL Ears, Nose, Mouth, Throat: hearing normal Cardiovascular: regular rate and rhythym Respiratory: no respiratory distress Gastrointestinal: normoactive bowel sounds Skin: warm, No normal color (pale) Musculoskeletal: generalized weakness Neurologic: AAOx3 Psychiatric: interacting appropriately ICD10 Worksheet Patient Problems: Problems Problem Status Onset Anemia Acute Myelodysplasia (myelodysplastic syndrome) Acute Shortness of breath Acute Weakness Acute Cerebral vascular accident Acute Dyspnea Acute Intradural tumor Acute Pulmonary embolism Acute
[2018-10-25] MEDS: FAMOTIDINE 20 MG TAB PO SCH (20:11)
[2018-10-25] MEDS: LISINOPRIL/HCTZ 20/12.5MG 1 EA TAB PO SCH (20:11)
[2018-10-25] MEDS: MIRTAZAPINE 30 MG TAB PO SCH (20:11)
--- NOTE | 2018-10-25 20:22 | SOAPPROG ---
SOAP Progress Note Assessment/Plan: Assessment:Plan: 1) anemia - suspect gi blood loss - needs colon and prob outpt capsule study 2) anti-coagulation - on hold, will prob drift down, can use FFP for procedure if INR too high 10/25/18 20:19 Subjective: CC- symptomatic anemia Ta feels better post PRBC's he is taking his colon prep tonight Objective: Vital Signs Temp Pulse Resp BP Pulse Ox 37.4 C 99 18 132/65 H 90 L 10/25/18 19:44 10/25/18 19:44 10/25/18 19:44 10/25/18 19:44 10/25/18 19:44 Laboratory Results 10/25/18 04:55 10/24/18 10/25/18 10/26/18 05:59 05:59 05:59 Intake Total 750 Output Total 475 625 Balance -475 125 PT 29.9 SEC (12.0-15.0) H 10/25/18 04:55 INR 2.86 (0.83-1.16) H 10/25/18 04:55 A+Ox3 CTA S1S +Bs, soft nt Laboratory Tests 10/24/18 10/24/18 10/24/18 01:52 05:14 05:14 Hgb 7.9 L 7.5 L INR 3.57 H 10/24/18 10/25/18 10/25/18 13:40 04:55 04:55 Hgb 7.6 L 7.1 L INR 2.86 H ICD10 Worksheet Patient Problems: Problems Problem Status Onset Anemia Acute Myelodysplasia (myelodysplastic syndrome) Acute Shortness of breath Acute Weakness Acute Cerebral vascular accident Acute Dyspnea Acute Intradural tumor Acute Pulmonary embolism Acute
[2018-10-26 05:39] LABS: INR 2.35 (0.83-1.16); PROTIME(PATIENT) 25.7 SEC (12.0-15.0)
[2018-10-26] MEDS: LEVOTHYROXINE 25 MCG TAB PO SCH (07:20)
--- NOTE | 2018-10-26 08:55 | GCON ---
[f rep st] CONSULTATION DATE OF CONSULTATION: 10/24/2018 REFERRING PHYSICIAN: Dr. Hagen INDICATION FOR CONSULTATION: Symptomatic anemia. HISTORY OF PRESENT ILLNESS: I have been asked by Dr. Hagen to see this patient in consultation for a chief complaint of symptomatic anemia. I know the patient well from many years of outpatient evaluation. He was recently diagnosed with myelodysplastic syndrome, anemia, and a pulmonary embolus. He presents on warfarin secondary to laboratory studies which were drawn about a week ago that showed significant anemia and elevated pro time. I spoke to him that night; he was very short of breath, and I recommended that he come to the emergency room for evaluation. He came in and was found to be significantly anemic and is doing much better with blood transfusions. He does not have any overt GI blood loss. He has had previous endoscopies by myself, the most recent of which was on September 26, 2018. His last colonoscopy dates back to 2013 , and these are all reviewed below. The patient does not complain of any nausea , vomiting, dysphagia, odynophagia, or early satiety. He has always had some upper GI symptoms, which have been difficult to characterize and treat. He says that his stool was dark, but not black. He has had no significant weight loss, although he has been having more difficulty taking care of himself at home. He is now admitted for the above, and I am called to help and evaluate in that regard. PAST MEDICAL HISTORY: Myelodysplastic syndrome, pulmonary emboli and on warfarin, TIA back in 2005, hypertension, GERD, mild pulmonary hypertension, DVT , BPH, chronic diastolic CHF, and hypothyroidism. SURGICAL HISTORY: Includes cholecystectomy, benign spinal cord tumor excision, in addition to his colonoscopies and EGDs, which are reviewed below. FAMILY HISTORY: His father had stomach cancer at age 72. His mother from complications at age 73. SOCIAL HISTORY: The patient never was a smoker, and he has not had any drinks for a long time. He is . He lives alone. He has a number of children and a few who are around in the area. MEDICATIONS: At home included vitamin D3, lisinopril/hydrochlorothiazide, Synthroid, Remeron, vitamin B12, Protonix, psyllium husks, ranitidine, Coumadin , ascorbic acid, and iron. In hospital, he is written for Tylenol p.r.n., bisacodyl p.r.n., Pepcid 20 mg p.o. q.h.s. He is getting some iron sulfate, which I am going to stop and trying to prep him. He is on Zestoretic p.o. q.h.s., Dilaudid p.r.n., Synthroid 25 mcg daily, Remeron 30 mg p.o. q.h.s., Zofran p.r.n., oxycodone p.r.n., Protonix 40 mg b.i.d., and MiraLax 17 g p.o. daily. ALLERGIES: Sulfa drugs cause rashes. REVIEW OF SYSTEMS: A complete review of systems was performed and is negative other than as noted in the HPI. PHYSICAL EXAMINATION: GENERAL: Elderly male, chronically ill appearing, sitting in the bed, with shortness of breath. VITAL SIGNS: His blood pressure is 121/49, pulse is 91, respirations are 20. He is on 97% on 7 L nasal cannula. His temperature is 37.2. HEENT: Eyes: Anicteric. ALYSSA, EOMI. Mouth: No lesions. NECK: Supple. Full range of motion. No JVD. BACK: No spine tenderness. No CVA tenderness. LUNGS: Clear. CARDIAC: S1, S2. Regular rate and rhythm. No murmurs, rubs, or gallops appreciated. ABDOMEN: Bowel sounds are normal in pitch and frequency. ABDOMEN: Soft and nontender. No hepatosplenomegaly. EXTREMITIES: No cyanosis, clubbing, or edema. NEUROLOGIC: Cranial nerves intact. Nonfocal. SKIN: No stigmata of advanced liver disease. No rashes. LABORATORY DATA: On October 23, WBC 3.45, hemoglobin 6.6, hematocrit 19.8, platelet count 90. Pro time 36.3, INR 3.69, PTT 71.5. Sodium 135, potassium 4.1, chloride 108, bicarb 20, BUN 18, creatinine 1.1, glucose 112, calcium 8.2. From the , AST 21, ALT 32, alkaline phosphatase 39, albumin 2.4, total protein 5.5. Historical laboratory data: From October 03, hemoglobin 8.6. October 15, hemoglobin 7.1. Stool occult blood on October 26 was negative. EGD performed September 26, 2018: Normal esophagus; diffuse inflammation with hemorrhage characterized by adherent blood, erythema and friability in the gastric body and the gastric antrum; sessile polyps in the gastric body, status post biopsy; normal duodenum. Pathology of the antrum showed mild chronic gastritis, negative for H pylori. The stomach polyps were fundic gland polyps. EGD performed November 13, 2015: Normal esophagus, erythema and granularity in the stomach, sessile polyps in the gastric body, some discoloration in the duodenum. Pathology at that point revealed normal duodenal bulb, gastric mucosa negative for H pylori, some chronic gastritis with PPI effect. In the polyps, there was 1 fragment of hyperplastic polyp and the others were fundic gland. Colonoscopy September 20, 2013: Good prep, exam to terminal ileum, normal terminal ileum, normal colonoscopy. October 29, 2002: Good prep, exam to cecum, internal hemorrhoids, otherwise normal exam. ASSESSMENT: 1. Symptomatic anemia with shortness of breath, dyspnea on exertion. 2. Long-term use of anticoagulation, now on hold. 3. Myelodysplastic syndrome. 4. Hypothyroidism. 5. Hypertension. RECOMMENDATIONS: 1. Prep for colonoscopy plus/minus EGD. 2. Hold iron, status prepping for colonoscopy. 3. If above is not helpful, would recommend capsule endoscopy of the small bowel to evaluate for vascular ectasias. 4. Transfuse PRBCs as per hospitalists. 5. PPI BID for his gastritis noted on EGD in September 6. Treatment of his mild prostatism as per Oncology. 7. Further medications to follow results of above and clinical course. Given the patient's multiple medical issues, anemia, and anticoagulation, this will be a higher risk procedure than normal. The patient will be monitored continuously for oxygen saturation and EKG, blood pressure every 5 minutes. RN' s will be present during the entire procedure to monitor the patient. Thank you for allowing me to participate in this patient's healthcare. Do not hesitate to call me with any questions. /[id number]/MODL MTDD
[2018-10-26] MEDS: PANTOPRAZOLE SODIUM 40 MG TAB PO SCH ×2 (09:18→16:59)
[2018-10-26] MEDS ORDERED: MAGNESIUM CITRATE 300 ML BOTTLE PO ONE (10:15)
[2018-10-26] MEDS: FERROUS SULFATE 325 MG TAB PO SCH ×2 (10:54→22:02)
[2018-10-26] MEDS: POLYETHYLENE GLYCOL 3350 17 GM PKT PO SCH (10:55)
[2018-10-26] MEDS ORDERED: LR 1,000 ML IV ONE (12:42)
--- NOTE | 2018-10-26 12:54 | PDANEPAE ---
ANE History of Present Illness colonscopy ANE Past Medical History - Cardiovascular History Hx Hypertension: Yes Hx Arrhythmias: No Hx Chest Pain: No Hx Coronary Artery / Peripheral Vascular Disease: No Hx CHF / Valvular Disease: Yes Hx Palpitations: No - Pulmonary History Hx COPD: No Hx Asthma/Reactive Airway Disease: No Hx Recent Upper Respiratory Infection: No Hx Oxygen in Use at Home: Yes Hx Sleep Apnea: No Sleep Apnea Screening Result - Last Documented: Positive Pulmonary History Comment: DENIES SOB W STAIRS. PE 2012- TX W COUMADIN - Neurologic History Hx Cerebrovascular Accident: No Hx Seizures: No Hx Dementia: No Neurologic History Comment: LUMBAR STENOSIS. LUMBAR BENIGN TUMOR. HAS TUMOR BRAIN STEM- OBSERVATION- NO TX NEEDED AT THIS TIME - Endocrine History Hx Diabetes: No Hypothyroid: Yes Hyperthyroid: No Obesity: no - Renal History Hx Renal Disorders: Yes Renal History Comment: HX BPH- SURG GREEN LITE LASER 2011 - Liver History Hx Hepatic Disorders: No - Neurological & Psychiatric Hx Hx Neurological and Psychiatric Disorders: Yes Neurological / Psychiatric History Comment: ANXIETY - Cancer History Hx Cancer: No - Congenital Disorder History Hx Congenital Disorders: No - GI History GERD: mild Hx Gastrointestinal Disorders: Yes Gastrointestinal History Comment: REFLUX. AVOID ACID FOODS. TRY GLUTEN FREE - Other Health History Other Health History: L EAR LOW FREQ HEARING LOSS. TUMOR SPINAL COLUMN. STENOSIS. TUMOR BRAIN STEM - Chronic Pain History Chronic Pain: No - Surgical History Prior Surgeries: GREEN LITE LASER. ABHINAV. X 6 SURG BENIGN TUMOR REM FACE '70' ANE Review of Systems Review of Systems: - Exercise capacity Exercise capacity: <4 METS ANE Patient History - Allergies Allergies/Adverse Reactions: Sulfa (Sulfonamide Antibiotics) [Sulfa(Sulfonamide Antibiotics)] Allergy ( Verified 10/23/18 17:13) CAUSED KIDNEY PROB CHILD - Home Medications Home medications: home medication list seen and reviewed Home Medications: Cholecalciferol Vit D3 [Vitamin D3 (*)] 2,000 units PO HS 09/05/12 [Last Taken 10/22/18] Lisinopril/Hctz 20/12.5MG [Zestoretic/Prinzide 20/12.5MG (*)] 1 ea PO HS [Last Taken 10/22/18] Levothyroxine [Synthroid 25 mcg (*)] 25 mcg PO DAILY06 03/04/16 [Last Taken 02/03] Mirtazapine [Remeron] 30 mg PO HS 03/04/16 [Last Taken 10/22/18] Cyanocobalamin [Vitamin B12 (*)] 1,000 mcg PO DAILY 09/29/18 [Last Taken ] Pantoprazole Sodium [Protonix 40mg (*)] 40 mg PO BIDAC 09/29/18 [Last Taken 02/03] Psyllium Husk (with Sugar) [Metamucil Packet] 1 each PO BID 09/29/18 [Last Taken 10/23/18 09:00] Ranitidine HCl 300 mg PO HS 09/29/18 [Last Taken 10/22/18] Warfarin Sodium [Coumadin 5MG (*)] 2.5 mg PO MOWETHFRSA@16 09/29/18 [Last Taken 10/22/18] Warfarin Sodium [Coumadin 5MG (*)] 5 mg PO SUTU@16 09/29/18 [Last Taken 10/21/18 ] Ascorbic Acid [Vitamin C 500 mg (*)] 500 mg PO BID 10/23/18 [Last Taken 09:00] Ferrous Sulfate [Ferrous Sulf 325 MG (*)] 325 mg PO BID 10/23/18 [Last Taken 02/03 09:00] - NPO status NPO Status: no food or drink >8 hours NPO Since - Liquids (Date): 10/26/18 NPO Since - Liquids (Time): 08:05 NPO Since - Solids (Date): 10/24/18 NPO Since - Solids (Time): 18:00 - Smoking Hx Smoking Status: Never smoked - Alcohol Use Alcohol Use: None - Family Anes Hx Family Hx Anesthesia Complications: NONE ANE Labs/Vital Signs - Labs Result Diagrams: 10/26/18 04:55 10/24/18 05:14 - Vital Signs Blood Pressure: 103/50 Heart Rate: 92 Respiratory Rate: 16 O2 Sat (%): 94 Height: 182.88 cm Weight: 84.368 kg ANE Physical Exam - Airway Mallampati Score: Class 2 Mouth exam: poor dentition - Pulmonary Pulmonary: no respiratory distress - Cardiovascular Cardiovascular: regular rate and rhythym - ASA Status ASA Status: III ANE Anesthesia Plan Anesthesia Plan: MAC
[2018-10-26] MEDS ORDERED: PROPOFOL/EMULSION 500 MG/50 ML BOTTLE IV ONE (13:01)
[2018-10-26] MEDS ORDERED: MIDAZOLAM 2 MG/2 ML VIAL ONE (13:01)
[2018-10-26] MEDS ORDERED: LIDOCAINE 2% 5 ML SDV ONE (13:01)
[2018-10-26] MEDS ORDERED: fentaNYL 100 MCG/2 ML INJ ONE (13:10)
[2018-10-26] MEDS ORDERED: PHENYLEPHRINE HCL 100 MCG/ML SYR ONE (13:21)
[2018-10-26] MEDS ORDERED: ALBUTEROL 3 ML DEYVIAL IH PRN (13:35)
[2018-10-26] MEDS ORDERED: fentaNYL 100 MCG/2 ML INJ IVP PRN (13:35)
[2018-10-26] MEDS ORDERED: NALOXONE HCL 0.4 MG/ML INJ IVP PRN (13:35)
--- NOTE | 2018-10-26 13:35 | GIREPORT ---
[facility] - Endoscopy Department Patient Name: Ta Telles Procedure Date: 10/26/2018 12:37 PM Patient Type: Inpatient Attending MD/ ER Physician: John Smiley MD Procedure: Colonoscopy Indications: Iron deficiency anemia secondary to chronic blood loss Providers: John Smiley MD Referring MD: Roslyn Quesada MD and Aure Wheatley MD Medicines: Propofol per Anesthesia + IV general with spontaneous respirations Complications: No immediate complications. Description of Procedure: After obtaining informed consent, the scope was passed under direct vis ion. Throughout the procedure, the patient's blood pressure, pulse, and oxyg en saturations were monitored continuously. The Colonoscope with irrigatio n channel was introduced through the anus and advanced to the terminal il eum, with identification of the appendiceal orifice and IC valve. The colono scopy was performed without difficulty. The patient tolerated the procedure w ell. The quality of the bowel preparation was good. Findings: The digital rectal exam was normal. The terminal ileum appeared normal. Bleeding secondary to a maneuver was found at the splenic flexure. From scope 'trauma' - very friable tissue The exam was otherwise without abnormality. Estimated Blood Loss: Estimated blood loss was minimal. Post Op Diagnosis: - The examined portion of the ileum was normal. - Blood at the splenic flexure. - The examination was otherwise normal. - No specimens collected. Recommendation: - Return patient to [facility] for [facility] care. - Resume regular diet. - Use Protonix (pantoprazole) 40 mg PO BID for 8 weeks. - To visualize the small bowel, perform video capsule endoscopy at appointment to be scheduled. This will be an outpatient exam thru my of [facility]. - I suspect either vascular ectasia in small bowel or the previous irritation I noted on EGD in September 2018 as source of blood loss on anti-coagulation - Thank you for allowing me to help in your patient's care. Do not hesi martell to call with any questions. Attending Participation: I personally performed the entire procedure. Sherice Miner M.D John Smiely MD 10/26/2018 1:35:08 PM This report has been signed electronicallyMatthew MD Sherice Number of Addenda: 0 Note Initiated On: 10/26/2018 12:37 PM Total Procedure Duration Time 0 hours 17 minutes 6 seconds [email or web address]
--- NOTE | 2018-10-26 14:49 | SOAPPROG ---
ILIANA Progress Note Assessment/Plan: Assessment: - MDS-EB-2 - He needed a unit of PRBC today. He still has some abdominal pain. Colonoscopy just showed friable mucosa. Specimens pending. I spoke with Dr. Smiley. Ta's daughter (who brings him to appointments) says that she needs to change his appointments to a provider who is in the office on . I am happy to follow him as an outpatient. Please make him an appointment to see me as an outpatient next week. GI Bleed - Not active at the moment Anemia - he will need to start EPO as an outpatient. Hgb 8.7 today. No txn needed today Plan: follow counts home in AM follow up next week with me in the office. I'll sign off for now. Please call with questions Subjective: No complaints Objective: Vital Signs Temp Pulse Resp BP Pulse Ox 37.1 C 94 16 123/45 H 96 10/26/18 14:21 10/26/18 14:21 10/26/18 14:21 10/26/18 14:21 10/26/18 14:21 Laboratory Results 10/26/18 04:55 10/24/18 10/25/18 10/26/18 23:59 23:59 23:59 Intake Total 750 330 Output Total 300 800 5 Balance -300 -50 325 PT 25.7 SEC (12.0-15.0) H 10/26/18 04:55 INR 2.35 (0.83-1.16) H 10/26/18 04:55 Physical Exam - Physical Exam General Appearance: alert, no apparent distress Respiratory: lungs clear Abdomen: normal bowel sounds Skin: pallor ICD10 Worksheet Patient Problems: Problems Problem Status Onset Anemia Acute Myelodysplasia (myelodysplastic syndrome) Acute Shortness of breath Acute Weakness Acute Cerebral vascular accident Acute Dyspnea Acute Intradural tumor Acute Pulmonary embolism Acute
--- NOTE | 2018-10-26 14:53 | HOSPPROG ---
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 First encounter, chart reviewed. * Acute on chronic anemia: - 3 units of PRBCs have been given + 2 units of FFP have been given *concern for GI bleed -colonoscopy no source of bleeding -needs a capsule study -protonix x 8 weeks -FFP on hold and to be transfused if INR is >2 *MDS: -New diagnosis as of 09/2018 -Dr High seeing him, discussed *left ankle skin breakdown -appreciate wound care seeing him *fatigue and weakness -due to the above *hx of PE -INR is therapeutic -was given two units of FFP for supratherapeutic INR *thrombocytopenia, leukopenia -secondary to MDS *hypothyroidism -cont replacement htn -bp stable -has some hypotension yesterday- much improved with blood products *plan: Spoke w Ta and KYLE would benefit from home care-he has been declining this, but had struggled at home on last dc. Subjective: Feeling better today. Still tired. Objective: Vital Signs Temp Pulse Resp BP Pulse Ox 37.1 C 94 16 123/45 H 96 10/26/18 14:21 10/26/18 14:21 10/26/18 14:21 10/26/18 14:21 10/26/18 14:21 Laboratory Results 10/26/18 04:55 10/25/18 10/26/18 10/27/18 05:59 05:59 05:59 Intake Total 750 330 Output Total 475 625 5 Balance -475 125 325 PT 25.7 SEC (12.0-15.0) H 10/26/18 04:55 INR 2.35 (0.83-1.16) H 10/26/18 04:55 - Physical Exam Constitutional: appears nourished, not in pain, chronically ill appearing Eyes: PERRL, anicteric sclera, EOMI Ears, Nose, Mouth, Throat: moist mucous membranes, hearing normal, ears appear normal Cardiovascular: regular rate and rhythym, No JVD, No edema Respiratory: no respiratory distress, no rales or rhonchi, reduced air movement Gastrointestinal: normoactive bowel sounds, No tenderness, No ascites Skin: warm, normal color, No mottled Musculoskeletal: normal joint ROM, no joint effusions, generalized weakness Neurologic: AAOx3 Psychiatric: not anxious, not encephalopathic, poor insight, poor judgement ICD10 Worksheet Patient Problems: Problems Problem Status Onset Intradural tumor Acute Pulmonary embolism Acute Dyspnea Acute Cerebral vascular accident Acute Anemia Acute Weakness Acute Shortness of breath Acute Myelodysplasia (myelodysplastic syndrome) Acute
--- NOTE | 2018-10-26 16:42 | ASMTCMCOM ---
CM Note CM Note Notes: Attempted to meet with pt twice but he was sleeping, [facility], list was given unfortunately he is very resistant but is in great need of homecare since he refuses SNF. CM w/f. Dtr and son in law are very supportive of home care. DC Plan: Home Care Date Signed: 10/26/2018 04:42 PM Electronically Signed By:Mary Ramirez RN
[2018-10-26] MEDS: LISINOPRIL/HCTZ 20/12.5MG 1 EA TAB PO SCH (22:01)
[2018-10-26] MEDS: FAMOTIDINE 20 MG TAB PO SCH (22:02)
[2018-10-26] MEDS: MIRTAZAPINE 30 MG TAB PO SCH (22:02)
[2018-10-27] MEDS: PANTOPRAZOLE SODIUM 40 MG TAB PO SCH ×2 (06:39→16:37)
[2018-10-27] MEDS: LEVOTHYROXINE 25 MCG TAB PO SCH (06:39)
[2018-10-27] MEDS: POLYETHYLENE GLYCOL 3350 17 GM PKT PO SCH ×2 (08:21→20:10)
[2018-10-27] MEDS: FERROUS SULFATE 325 MG TAB PO SCH ×2 (08:22→20:09)
[2018-10-27 11:07] LABS: PLATELET COUNT 56 10^3/uL (150-400)
[2018-10-27 11:29] LABS: INR 2.16 (0.83-1.16); PROTIME(PATIENT) 24.1 SEC (12.0-15.0)
--- NOTE | 2018-10-27 12:57 | PDIAF ---
- Diagnosis Diagnosis: anemia Code Status: Do Not Resuscitate - Medication Management Discharge Medications: electronically signed and located in the Home Medication List. PICC Care - Routine: N/A - Orders Services needed: Home Care, Registered Nurse, Physical Therapy, Occupational Therapy Home Care Face to Face: I certify that this patient was under my care and that I had the required [id number] encounter meeting the encounter requirements on the discharge day. My findings support the fact that the patient is homebound as defined in Home Care Face to Face Continued: CMS Chapter 7 Medicare Benefits Manual 30.1.1 , The condition of the patient is such that there exists a normal inability to leave home and consequently, leaving home would require a considerable and taxing effort. Isolation Type: None Diet Recommendation: no restrictions on diet Additional Instructions: Change dressings to left anterior ankle every 3 days and prn. 1. Clean with ns and gauze 2. Wound gel to wound bed 3. Cover with Allevyn Life or other foam border dressing. Tamia CASASON - Labs/Radiology CBC w/diff Date: 10/30/18 PT/INR Date: 10/30/18 - Follow Up Care Current Providers and Referrals: Roslyn Quesada MD [Primary Care Provider] - As per Instructions
--- NOTE | 2018-10-27 14:13 | ASMTLACE ---
LACE Length of stay for Answers: 4-6 days current admission Acuity / Level of Answers: Yes Care: Did the patient have an inpatient admission? Comorbidities - select Answers: Any tumor (including all that apply lymphoma or leukemia) Cerebrovascular disease (CVA, TIA, aneurysms, vasc ular dementia) Congestive heart failure Other Notes: Myeldoysplastic syndrome; HTN; PEs # of Emergency department Answers: 3-4 visits in the last 6 months Score: 16 Date Signed: 10/27/2018 02:13 PM Electronically Signed By:Tabatha Gutierrez
--- NOTE | 2018-10-27 14:21 | ASMTCMCOM ---
CM Note CM Note Notes: Pt to discharge today and then fell suddenly ill with nausea. Discharge delayed. [facility] has accepted. Dtr to provide transport when pt discharged. CM to follow. D/C Plan: Home with [facility] Date Signed: 10/27/2018 02:20 PM Electronically Signed By:Tabatha Gutierrez
--- NOTE | 2018-10-27 14:23 | HOSPPROG ---
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 * Acute on chronic anemia: - 3 units of PRBCs have been given + 2 units of FFP have been given -stable -recheck in am *concern for GI bleed -colonoscopy no source of bleeding -needs a capsule study -protonix x 8 weeks -FFP on hold and to be transfused if INR is >2 *MDS: -New diagnosis as of 09/2018 -Dr High seeing him *left ankle skin breakdown -appreciate wound care seeing him *fatigue and weakness -due to the above *hx of PE -INR is therapeutic -was given two units of FFP for supratherapeutic INR *thrombocytopenia, leukopenia -secondary to MDS *hypothyroidism -cont replacement htn -bp stable -has some hypotension yesterday- much improved with blood products *plan: Spoke daryl Chappell and CM would benefit from home care-he has been declining this, but had struggled at home on last dc not feeling well still having some nausea and weakness Subjective: felt well this am, now feels ill. Some nausea. Objective: Vital Signs Temp Pulse Resp BP Pulse Ox 36.6 C 98 16 121/51 H 92 10/27/18 11:25 10/27/18 11:25 10/27/18 11:25 10/27/18 11:25 10/27/18 11:25 Laboratory Results 10/27/18 10:30 10/26/18 10/27/18 10/28/18 05:59 05:59 05:59 Intake Total 750 330 Output Total 625 305 Balance 125 25 PT 24.1 SEC (12.0-15.0) H 10/27/18 10:30 INR 2.16 (0.83-1.16) H 10/27/18 10:30 - Physical Exam Constitutional: appears nourished, chronically ill appearing Eyes: PERRL, anicteric sclera Ears, Nose, Mouth, Throat: moist mucous membranes, hearing normal Cardiovascular: No JVD, No edema Respiratory: no respiratory distress, reduced air movement Gastrointestinal: No tenderness, No ascites Skin: warm, normal color Musculoskeletal: no joint effusions, generalized weakness Neurologic: AAOx3 Psychiatric: not anxious, not encephalopathic ICD10 Worksheet Patient Problems: Problems Problem Status Onset Intradural tumor Acute Pulmonary embolism Acute Dyspnea Acute Cerebral vascular accident Acute Anemia Acute Weakness Acute Shortness of breath Acute Myelodysplasia (myelodysplastic syndrome) Acute
[2018-10-27] MEDS: WARFARIN SODIUM 2.5 MG TAB PO SCH (16:37)
[2018-10-27] MEDS: MIRTAZAPINE 30 MG TAB PO SCH (20:09)
[2018-10-27] MEDS: LISINOPRIL/HCTZ 20/12.5MG 1 EA TAB PO SCH (20:09)
[2018-10-27] MEDS: FAMOTIDINE 20 MG TAB PO SCH (20:09)
[2018-10-28 06:19] LABS: INR 2.15 (0.83-1.16)
[2018-10-28] MEDS: LEVOTHYROXINE 25 MCG TAB PO SCH (06:45)
[2018-10-28] MEDS: PANTOPRAZOLE SODIUM 40 MG TAB PO SCH ×2 (06:45→16:58)
[2018-10-28] MEDS: FERROUS SULFATE 325 MG TAB PO SCH ×2 (09:04→21:38)
[2018-10-28] MEDS: POLYETHYLENE GLYCOL 3350 17 GM PKT PO SCH ×2 (09:04→21:38)
[2018-10-28] MEDS ORDERED: IPRATROPIUM/ALBUTEROL 3 ML DEYVIAL IH PRN (09:43)
[2018-10-28] MEDS: guaiFENesin 600 MG TAB.ER PO SCH ×2 (10:07→21:37)
--- NOTE | 2018-10-28 12:54 | HOSPPROG ---
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 *Acute on chronic anemia: -3 units of PRBCs have been given + 2 units of FFP have been given -stable *concern for GI bleed -colonoscopy no source of bleeding -needs a capsule study -protonix x 8 weeks -FFP on hold and to be transfused if INR is >2 *MDS: -New diagnosis as of 09/2018 -Dr High seeing him *Fever -one epsiode -CXR shows ATX with possible infiltrate *Hypoxia -CXR, personally reviewed, ATX with possible infiltrate -consider PNA , -start abx *left ankle skin breakdown -appreciate wound care seeing him *fatigue and weakness -due to the above *hx of PE -INR is therapeutic -was given two units of FFP for supratherapeutic INR *thrombocytopenia, leukopenia -secondary to MDS *hypothyroidism -cont replacement *htn -bp stable -much improved with blood products *plan: Spoke daryl Chappell and KYLE would benefit from home care-he has been declining this, but had struggled at home on last dc not feeling well still having some nausea and weakness cont to evaluate Subjective: Still not feeling well. New cough, tired. Objective: Vital Signs Temp Pulse Resp BP Pulse Ox 36.8 C 100 18 111/51 L 93 10/28/18 12:00 10/28/18 12:00 10/28/18 04:00 10/28/18 12:00 10/28/18 12:00 Laboratory Results 10/27/18 10:30 10/28/18 05:22 10/27/18 10/28/18 10/29/18 05:59 05:59 05:59 Intake Total 330 400 Output Total 305 100 300 Balance 25 300 -300 PT 24.0 SEC (12.0-15.0) H 10/28/18 05:22 INR 2.15 (0.83-1.16) H 10/28/18 05:22 - Physical Exam Constitutional: not in pain, chronically ill appearing Eyes: PERRL, anicteric sclera Ears, Nose, Mouth, Throat: moist mucous membranes, hearing normal Cardiovascular: No JVD, No edema Respiratory: reduced air movement, rhonchi Gastrointestinal: No tenderness, No ascites Skin: warm, normal color Musculoskeletal: no joint effusions, generalized weakness Neurologic: AAOx3 Psychiatric: interacting appropriately, not anxious, not encephalopathic ICD10 Worksheet Patient Problems: Problems Problem Status Onset Intradural tumor Acute Pulmonary embolism Acute Dyspnea Acute Cerebral vascular accident Acute Anemia Acute Weakness Acute Shortness of breath Acute Myelodysplasia (myelodysplastic syndrome) Acute
[2018-10-28] MEDS: AZITHROMYCIN IV 500 MG in NS 250 ML IV SCH (14:13)
[2018-10-28] MEDS: WARFARIN SODIUM 2.5 MG TAB PO SCH (16:58)
--- NOTE | 2018-10-28 17:08 | ASMTCMCOM ---
CM Note CM Note Notes: CM discussed case with KENNY Rocha, patient may be here for a few more days, started IV antibiotics. Goal continues to be discharge home with Home Health. CM to follow. D/C Plan: Date Signed: 10/28/2018 05:08 PM Electronically Signed By:Bev Mccarthy
[2018-10-28] MEDS: FAMOTIDINE 20 MG TAB PO SCH (21:38)
[2018-10-28] MEDS: MIRTAZAPINE 30 MG TAB PO SCH (21:38)
[2018-10-28] MEDS: LISINOPRIL/HCTZ 20/12.5MG 1 EA TAB PO SCH (21:38)
[2018-10-29] MEDS: LEVOTHYROXINE 25 MCG TAB PO SCH (05:17)
[2018-10-29 05:29] LABS: INR 2.25 (0.83-1.16); PROTIME(PATIENT) 24.9 SEC (12.0-15.0)
[2018-10-29] MEDS: AZITHROMYCIN IV 500 MG in NS 250 ML IV SCH (08:06)
[2018-10-29] MEDS: guaiFENesin 600 MG TAB.ER PO SCH ×2 (08:20→20:19)
[2018-10-29] MEDS: PANTOPRAZOLE SODIUM 40 MG TAB PO SCH ×2 (08:20→17:25)
[2018-10-29] MEDS: FERROUS SULFATE 325 MG TAB PO SCH ×2 (08:20→20:19)
--- NOTE | 2018-10-29 09:02 | CPEKG ---
Test Reason : OPEN Blood Pressure : / mmHG Vent. Rate : 101 BPM Atrial Rate : 102 BPM P-R Int : 324 ms QRS Dur : 141 ms QT Int : 376 ms P-R-T Axes : 087 020 -02 degrees QTc Int : 488 ms Sinus tachycardia Atrial premature complex Prolonged AZ interval Right bundle branch block Confirmed by Armand Peterson ([id number]) on 10/29/2018 9:02:15 AM Referred By: Cesar Hagen Confirmed By:Armand Peterson
--- NOTE | 2018-10-29 09:30 | HOSPPROG ---
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 * Acute on chronic anemia: - 3 units of PRBCs have been given + 2 units of FFP have been given -stable -will recheck in the a.m.and now *concern for GI bleed -colonoscopy no source of bleeding -needs a capsule study -Protonix x 8 weeks *dysphagia -reviewed his care w and placed patient on a Dysphagia diet, he is refusing this and wants a regular texture diet, explained risk to him *tachycardia -check hgb, hct now *? 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 also ordered a video esophagram to evaluate for aspiration Subjective: Ta is upset this morning, wants a regular diet and is upset there is concern for dysphagia Objective: Vital Signs Temp Pulse Resp BP Pulse Ox 36.7 C 112 H 18 131/63 H 90 L 10/29/18 07:34 10/29/18 07:34 10/29/18 07:34 10/29/18 07:34 10/29/18 07:34 Laboratory Results 10/27/18 10:30 10/28/18 05:22 10/28/18 10/29/18 10/30/18 05:59 05:59 05:59 Intake Total 400 Output Total 100 300 300 Balance 300 -300 -300 PT 24.9 SEC (12.0-15.0) H 10/29/18 04:43 INR 2.25 (0.83-1.16) H 10/29/18 04:43 - Physical Exam Constitutional: not in pain, chronically ill appearing Eyes: PERRL Ears, Nose, Mouth, Throat: hearing normal Cardiovascular: regular rate and rhythym Respiratory: no respiratory distress, reduced air movement, other (crackles on r base) Gastrointestinal: normoactive bowel sounds Skin: warm Musculoskeletal: generalized weakness Neurologic: AAOx3 Psychiatric: interacting appropriately ICD10 Worksheet Patient Problems: Problems Problem Status Onset Anemia Acute Myelodysplasia (myelodysplastic syndrome) Acute Shortness of breath Acute Weakness Acute Cerebral vascular accident Acute Dyspnea Acute Intradural tumor Acute Pulmonary embolism Acute
[2018-10-29] MEDS: POLYETHYLENE GLYCOL 3350 17 GM PKT PO SCH ×2 (10:36→20:19)
[2018-10-29] MEDS: ACETAMINOPHEN 325 MG TAB PO PRN (15:49)
[2018-10-29] MEDS: WARFARIN SODIUM 2.5 MG TAB PO SCH (15:49)
[2018-10-29] MEDS: ONDANSETRON DISINTEGRATING 4 MG TAB PO PRN (19:53)
[2018-10-29] MEDS: LISINOPRIL/HCTZ 20/12.5MG 1 EA TAB PO SCH (20:19)
[2018-10-29] MEDS: FAMOTIDINE 20 MG TAB PO SCH (20:19)
[2018-10-29] MEDS: MIRTAZAPINE 30 MG TAB PO SCH (20:19)
[2018-10-30 05:39] LABS: INR 2.35 (0.83-1.16); PROTIME(PATIENT) 25.7 SEC (12.0-15.0)
[2018-10-30] MEDS: LEVOTHYROXINE 25 MCG TAB PO SCH (06:06)
--- NOTE | 2018-10-30 08:57 | HOSPPROG ---
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 * Acute on chronic anemia: - 3 units of PRBCs have been given + 2 units of FFP have been given -will give another unit today *concern for GI bleed -colonoscopy no source of bleeding -needs a capsule study -Protonix x 8 weeks *FTT -gets waves of feeling poorly and can't eat all morning -this has been ongoing for years, spoke w his daughter about this *dysphagia -Video esoph showed mild dysmotility,no aspiration *tachycardia -intermittent *? 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 Continue Coumadin for now, but concern for ongoing bleeding. Ta wants a transfusion. Spoke w his daughter, Tia, and she would like him to go home and they will stay w him. He has an appt w Dr High this . Will notify GI that patient is still here and not improving. >45 minutes following and caring Subjective: Ta is feeling poorly today, no appetite. Objective: Vital Signs Temp Pulse Resp BP Pulse Ox 37.3 C 105 H 16 128/60 H 92 10/30/18 08:15 10/30/18 08:15 10/30/18 08:15 10/30/18 08:15 10/30/18 08:15 Laboratory Results 10/30/18 05:08 10/28/18 05:22 10/29/18 10/30/18 10/31/18 05:59 05:59 05:59 Intake Total 600 Output Total 300 1100 Balance -300 -500 PT 25.7 SEC (12.0-15.0) H 10/30/18 05:08 INR 2.35 (0.83-1.16) H 10/30/18 05:08 - Physical Exam Constitutional: chronically ill appearing, uncomfortable Eyes: PERRL Ears, Nose, Mouth, Throat: hard of hearing Respiratory: no respiratory distress Skin: warm, No normal color (pale) Musculoskeletal: generalized weakness Neurologic: AAOx3 Psychiatric: depressed ICD10 Worksheet Patient Problems: Problems Problem Status Onset Anemia Acute Myelodysplasia (myelodysplastic syndrome) Acute Shortness of breath Acute Weakness Acute Cerebral vascular accident Acute Dyspnea Acute Intradural tumor Acute Pulmonary embolism Acute
[2018-10-30] MEDS: AZITHROMYCIN IV 500 MG in NS 250 ML IV SCH (09:12)
[2018-10-30] MEDS: POLYETHYLENE GLYCOL 3350 17 GM PKT PO SCH ×2 (09:12→20:53)
[2018-10-30] MEDS: ASCORBIC ACID 500 MG TAB PO SCH (09:12)
[2018-10-30] MEDS: FERROUS SULFATE 325 MG TAB PO SCH ×2 (09:13→20:44)
[2018-10-30] MEDS: PANTOPRAZOLE SODIUM 40 MG TAB PO SCH ×2 (09:13→17:20)
[2018-10-30] MEDS: guaiFENesin 600 MG TAB.ER PO SCH ×2 (09:57→20:44)
[2018-10-30] MEDS ORDERED: ACETAMINOPHEN 325 MG TAB PO ONE (12:09)
[2018-10-30] MEDS ORDERED: FUROSEMIDE 20 MG/2 ML VIAL IVP ONE ×2 (12:09→17:15)
--- NOTE | 2018-10-30 16:34 | ASMTCMCOM ---
CM Note CM Note Notes: Pts case discussed w/ Patsy Ram NP. Pt had a palliative today. CM met w/ pt and provide brochures for [facility]. Pt will look it over and let CM know. Anne from [facility] stopped by and visited w/ pt. CM to follow. Plan: [facility]; PT, OT, RN Date Signed: 10/30/2018 04:30 PM Electronically Signed By:JEFFERY Garcia
[2018-10-30] MEDS: WARFARIN SODIUM 2.5 MG TAB PO SCH (17:20)
[2018-10-30] MEDS: LISINOPRIL/HCTZ 20/12.5MG 1 EA TAB PO SCH (20:44)
[2018-10-30] MEDS: FAMOTIDINE 20 MG TAB PO SCH (20:44)
[2018-10-30] MEDS: MIRTAZAPINE 30 MG TAB PO SCH (20:44)
[2018-10-30] MEDS: oxyCODONE IR 5 MG TAB PO PRN (21:16)
[2018-10-31] MEDS: oxyCODONE IR 5 MG TAB PO PRN (03:51)
[2018-10-31] MEDS: ACETAMINOPHEN 325 MG TAB PO PRN ×2 (04:02→13:25)
[2018-10-31] MEDS: LEVOTHYROXINE 25 MCG TAB PO SCH (05:12)
[2018-10-31 06:11] LABS: INR 2.54 (0.83-1.16); PROTIME(PATIENT) 27.3 SEC (12.0-15.0)
[2018-10-31] MEDS: guaiFENesin 600 MG TAB.ER PO SCH (09:06)
[2018-10-31] MEDS: ASCORBIC ACID 500 MG TAB PO SCH (09:06)
[2018-10-31] MEDS: FERROUS SULFATE 325 MG TAB PO SCH (09:06)
[2018-10-31] MEDS: PANTOPRAZOLE SODIUM 40 MG TAB PO SCH (09:06)
[2018-10-31] MEDS: POLYETHYLENE GLYCOL 3350 17 GM PKT PO SCH (09:09)
[2018-10-31 11:08] VITALS: BP 106/53
--- NOTE | 2018-10-31 12:25 | HOSPPROG ---
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 * Acute on chronic anemia: - 4 units of PRBCs have been given + 2 units of FFP have been given *concern for GI bleed -colonoscopy no source of bleeding -needs a capsule study -Protonix x 8 weeks *FTT -gets waves of feeling poorly and can't eat all morning -this has been ongoing for years, spoke w his daughter about this *dysphagia -Video esoph showed mild dysmotility,no aspiration *tachycardia -intermittent *hypotension -noted this morning, but resolved on it's own *? 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 He has required multiple unit of blood w little improvement. Met daryl Ni while he was walking w PT, extremely weak, refusing SNF and says he has his children helping him. He is willing to have therapies come to his home. Recommending a walker for home. He is at high risk for falling and bleeding and both myself and therapy have told him this. He is alert and decisional. Also, contacted Dr High who was fine w palliative, Recommending Palliative care f/u. Subjective: Last said he is fine, only will go home and wants to be discharged. Objective: Vital Signs Temp Pulse Resp BP Pulse Ox 36.3 C 102 H 18 106/53 L 95 10/31/18 11:07 10/31/18 11:07 10/31/18 11:07 10/31/18 11:07 10/31/18 11:07 Laboratory Results 10/31/18 04:51 10/28/18 05:22 10/30/18 10/31/18 11/01/18 05:59 05:59 05:59 Intake Total 600 450 Output Total 1100 1100 100 Balance -500 -650 -100 PT 27.3 SEC (12.0-15.0) H 10/31/18 04:51 INR 2.54 (0.83-1.16) H 10/31/18 04:51 - Physical Exam Constitutional: chronically ill appearing Eyes: PERRL Ears, Nose, Mouth, Throat: hearing normal Respiratory: no respiratory distress Skin: warm Musculoskeletal: generalized weakness (very weak, hunches over while walking w the walker) Neurologic: AAOx3 Psychiatric: interacting appropriately, not encephalopathic, thought process linear ICD10 Worksheet Patient Problems: Problems Problem Status Onset Anemia Acute Myelodysplasia (myelodysplastic syndrome) Acute Shortness of breath Acute Weakness Acute Cerebral vascular accident Acute Dyspnea Acute Intradural tumor Acute Pulmonary embolism Acute
--- NOTE | 2018-10-31 12:42 | PDIAF ---
- Diagnosis Diagnosis: acute on chronic anemia, MDS, weakness, Code Status: Do Not Resuscitate - Medication Management Discharge Medications: electronically signed and located in the Home Medication List. PICC Care - Routine: N/A - Orders Services needed: Home Care, Registered Nurse, Certified Spark Plug Assembler, Physical Therapy, Occupational Therapy Home Care Face to Face: I certify that this patient was under my care and that I had the required [id number] encounter meeting the encounter requirements on the discharge day. My findings support the fact that the patient is homebound as defined in Home Care Face to Face Continued: CMS Chapter 7 Medicare Benefits Manual 30.1.1 , The condition of the patient is such that there exists a normal inability to leave home and consequently, leaving home would require a considerable and taxing effort. Isolation Type: None Diet Recommendation: no restrictions on diet Diet Texture: Regular Texture Diet, Thin Liquids, Meds Whole in Puree Additional Instructions: Change dressings to left anterior ankle every 3 days and prn. 1. Clean with normal saline and gauze 2. Wound gel to wound bed 3. Cover with Allevyn Life or other foam border dressing. Tamia Shell CWMELISSA HOLD COUMADIN until you get your capsule study to find source of bleeding Call Dr Smiley's office to find out when scheduled stay on Protonix bid x 8 weeks check blood pressure prior to taking the Lisinopril/HCTZ. If less than 120, do not take Follow up w Dr High tomorrow as scheduled you need to have a front wheel walker w you to help you walk at home recommending someone is with you 24 hours a day Check INR weekly once he resumes coumadin - Labs/Radiology HCT/HGB Date: 11/07/18 (weekly) - Follow Up Care Current Providers and Referrals: Roslyn Quesada MD [Primary Care Provider] - As per Instructions Misha High MD [Medical Doctor] - John Smiley MD [Medical Doctor] -
--- NOTE | 2018-10-31 12:58 | ASDISCHSUM ---
Discharge Information Plan Status:Home with Home Health Medically Cleared to Leave:10/30/2018 Discharge Date:10/30/2018 CM D/C Disposition:Home Health Service ADT D/C Disposition:Home Health Service Projected Discharge Date:10/31/2018 11:00 AM Transportation at D/C:Family Discharge Delay Reason: Follow-Up Date:10/31/2018 11:00 AM Discharge Slot: Final Diagnosis:low Hgb, wound Placement Information Referral Type:*Home Health Care Services Referral ID:[id number] Provider Name:[facility]) Address 1:[address] [address] Address 2: City:[place] Selection Factors: State:[place] Referral Type:Palliative Care Referral ID:[id number] Provider Name: Address 1: Phone Number: Address 2: Fax Number: City: Selection Factors: State: Patient Contact Information Contact Name:ALISIA Relationship:Friend Address: Work Phone: City:[place] Alternate Phone: [facility]/Zip Code:[place] Email: Financial Information Financial Class:Medicare Primary Plan Desc:MEDICARE INPATIENT Primary Plan Number:[id number] Secondary Plan Desc:JIMI Secondary Plan Number:[id number] Assessment Information LACE LACE Length of stay for Answers: 4-6 days current admission Acuity / Level of Answers: Yes Care: Did the patient have an inpatient admission? Comorbidities - select Answers: Any tumor (including all that apply lymphoma or leukemia) Cerebrovascular disease (CVA, TIA, aneurysms, vasc ular dementia) Congestive heart failure Other Notes: Myeldoysplastic syndrome; HTN; PEs # of Emergency department Answers: 3-4 visits in the last 6 months Score: 16 Date Signed: 10/27/2018 02:13 PM Electronically Signed By:Tabatha Gutierrez [facility] Progress Note CM Note CM Note Notes: Pt asked to come in to hospital by MD for abnormal labs. Pt has new diagnosis of MDS Myelodysplastic syndrome, he had oncology consult. Therapies pending, pt lives alone and got a ankle pressure sore from not changing tera hose. DC Plan: TBD Date Signed: 10/24/2018 06:15 PM Electronically Signed By:Mary Ramirez RN [facility] Progress Note CM Note CM Note Notes: Met with pt and family about [place]care [place]. Pt is reluctant but family is encouraging the extra help, CM gave pt a list and will f/u in am for choice. KYLE left message for Carol Bo ([phone]), Assisted Sales Representative at his PCP office. DC Plan: Home Care Date Signed: 10/25/2018 03:33 PM Electronically Signed By:Mary Ramirez RN [facility] Progress Note CM Note CM Note Notes: Attempted to meet with pt twice but he was sleeping, CM sent referral to [facility], list was given unfortunately he is very resistant but is in great need of homecare since he refuses SNF. CM w/f. Dtr and son in law are very supportive of home care. DC Plan: Home Care Date Signed: 10/26/2018 04:42 PM Electronically Signed By:Mary Ramirez RN [facility] CM Progress Note CM Note CM Note Notes: Pt to discharge today and then fell suddenly ill with nausea. Discharge delayed. [facility] has accepted. Dtr to provide transport when pt discharged. CM to follow. D/C Plan: Home with [facility] Date Signed: 10/27/2018 02:20 PM Electronically Signed By:Tabatha Gutierrez [facility] CM Progress Note CM Note CM Note Notes: CM discussed case with KENNY Rocha, patient may be here for a few more days, started IV antibiotics. Goal continues to be discharge home with Home Health. CM to follow. D/C Plan: Date Signed: 10/28/2018 05:08 PM Electronically Signed By:Bev Mccarthy [facility] CM Progress Note CM Note CM Note Notes: Pts case discussed w/ Patsy Ram NP. Pt had a palliative today. CM met w/ pt and provide brochures for [facility]. Pt will look it over and let CM know. Anne from [facility] stopped by and visited w/ pt. CM to follow. Plan: [facility]; PT, OT, RN Date Signed: 10/30/2018 04:30 PM Electronically Signed By:JEFFERY Garcia Case Management Discharge Plan Note Case Management Discharge Discharge Order Complete? Answers: Yes Patient to Obtain Answers: via Family Medications Transportation Arranged Answers: Family/Friends EMTALA Complete Answers: No Case Management Transport Answers: No Form Complete Faxed Final Orders Answers: Yes Agency/Facility Transfer Answers: Yes Report Printed & Faxed to Receiving Agency Family Notified Answers: No Discharge Comments Notes: Pts case discussed w/ Patsy Ram NP. Patsy and therapies are all recommending SNF. CM met w/ pt and is refusing SNF. Pt will continue w/ [facility]. DC orders sent. Pt reports that his 3 daughters are all going to take turns staying w/ him. Pt also refused palliative outpatient services. Miguel Ángel from [facility] will attempt to re-engage him in outpatient palliative. CM available for changes. Plan: [facility]; PT, OT, RN, BARREL CAP SETTER Date Signed: 10/31/2018 12:57 PM Electronically Signed By:JEFFERY Garcia Intervention Information Intervention Type:*AVENDAÑO-Signed Date of Service:10/24/2018 11:47 AM Patient Type:Observation Staff Member:Anjana Torrez Hours: Discipline: Severity: Comment: Intervention Type:*IM-Signed Date of Service:10/27/2018 02:18 PM Patient Type:Inpatient Staff Member:Tabatha Gutierrez Hours: Discipline:Legal Department Manager Severity: Comment:
--- NOTE | 2018-10-31 13:15 | GDS ---
[f rep st] DISCHARGE SUMMARY DISCHARGE DIAGNOSES: 1. Acute on chronic anemia. 2. Concern for gastrointestinal bleed. 3. Failure to thrive. 4. Concern for dysphagia. 5. Tachycardia. 6. Hypotension. 7. Concern of infiltrate on an x-ray. 8. Hypoxemia, resolved. 9. Myelodysplastic syndrome, new diagnosis of September 2018. 10. Left ankle skin breakdown. 11. Fatigue and weakness. 12. History of pulmonary emboli. 13. Thrombocytopenia, leukopenia. 14. Hypothyroidism. 15. Hypertension. HISTORY OF PRESENT ILLNESS: Briefly, this patient is an 83-year-old gentleman with a recent diagnosis of MDS, anemia, PE on warfarin, who presented to the ER because he had abnormal labs. 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 He was to follow up in the outpatient setting. He saw Dr. Smiley in the outpatient setting and was noted to have a hemoglobin of 6.6. He was typed and cross-matched, given blood. On October 26, he underwent a colonoscopy that showed blood at the splenic flexure, otherwise exam was normal. Recommendation was to be on a PPI for the next 8 weeks. After further talking to the patient today and Dr. Smiley, the recommendation is to hold the Coumadin until he gets a capsule study to see if the source of his bleeding can be identified. HOSPITAL COURSE BY PROBLEM: 1. Acute on chronic anemia. He was given 4 units of packed red blood cells and 2 units of FFP to reverse his INR. 2. Concern for GI bleeding. The colonoscopy showed no source. He needs a capsule study. 3. Failure to thrive. This has been going on for years. The patient feels poorly all morning and then improves throughout the day. 4. Concern with dysphagia. Video esophagram showed mild dysmotility. No aspiration. 5. Tachycardia. This is intermittent. 6. Hypotension. This was noted this morning but resolved on its own. 7. Concern for an infiltrate. He was treated with azithromycin and ceftriaxone. His procalcitonin was low, and he was not coughing. Without an elevated white blood cell count, these antibiotics were discontinued. 8. Hypoxemia. Oxygen levels today on room air are 94%. 9. MDS, new diagnosis this year. Will follow up with Dr. Sitarik. 10. Left ankle skin breakdown. He will get wound care at his home. 11. Fatigue and weakness. The physical therapist, me, and the briefcase sewer have spoke with the patient daily that he needs more care. Recommendation is a [facility] facility. He has said absolutely no. I have spoken with his children. They are going to try to plan to stay with him 24 hours a day. Recommending a walker. 12. History of PE. His INR is therapeutic. Recommending to hold Coumadin for now. 13. Thrombocytopenia, leukopenia. This is secondary to MDS. 14. Hypothyroidism, on Synthroid. 15. Hypertension. Blood pressure is stable. I have written parameters as when he should hold his lisinopril and hydrochlorothiazide. DISCHARGE CONDITION: Stable. Blood pressure is 106/53, heart rate of 97, respiratory rate of 18, O2 sats on room air 94%, temperature 36.3 Celsius. MEDICATIONS AT DISCHARGE: Please see the EMR. DISCHARGE INSTRUCTIONS: 1. To stop the Coumadin until he gets a capsule study. 2. He will get dressing changes to his left anterior ankle area every 3 days. 3. Follow up with Dr. High as scheduled tomorrow. 4. Recommend he get a front-wheeled walker. 5. Check his INR once he resumes his Coumadin. Greater than 30 minutes discharging and coordinating the patient's care. /[id number]/MODL MTDD
--- NOTE | 2018-10-31 14:48 | ASMTCMCOM ---
CM Note CM Note Notes: Miguel Ángel w/ [facility] met w/ pt and pt is agreeable to having [facility] following up in a week. CM sent referral to [facility]. Date Signed: 10/31/2018 02:47 PM Electronically Signed By:JEFFERY Garcia
== END 2018-10-31 15:45 | disposition home health service (06) | DRG 811 ==
LOC: F3E 21:19 → OBSVTOIN 10-24 15:55
PROVIDERS: ADMIT Internal Medicine; ATTEND Student in an Organized Health Care Education/Training Program
PROC: 30233N1 Transfusion of Nonautologous Red Blood Cells into Peripheral Vein, Percutaneous Approach (ICD-10-PCS; principal; 2018-10-23)
PROC: 30233K1 Transfusion of Nonautologous Frozen Plasma into Peripheral Vein, Percutaneous Approach (ICD-10-PCS; 2018-10-24)
DX: D64.9 Anemia, unspecified (principal); D46.22 Refractory anemia with excess of blasts 2; L89.523 Pressure ulcer of left ankle, stage 3; I50.32 Chronic diastolic (congestive) heart failure; R62.7 Adult failure to thrive; E03.9 Hypothyroidism, unspecified; I10 Essential (primary) hypertension; R91.8 Other nonspecific abnormal finding of lung field; R09.02 Hypoxemia; R53.1 Weakness; K21.9 Gastro-esophageal reflux disease without esophagitis; I27.20 Pulmonary hypertension, unspecified; Z86.711 Personal history of pulmonary embolism; Z86.73 Personal history of transient ischemic attack (TIA), and cerebral infarction without residual deficits
CPT/HCPCS: 82435-PO; 82565-PO; 82947-PO; 83010-90; 84132-PO; 84295-PO; 84484-ER; 84520-PO; 85014-ER; 92526-GN; 92610-GN; 92611-GN; 97116-GP; 97162-GP; 97166-GO; 97530-GO; 97530-GP; 97535-GO; G0378; J0456; J0696; J1940; J2250; J2370; J2405; J2704; J3010; P9016; P9017

== ENCOUNTER 2018-11-04 13:52 | Emergency (ER) | payer OTHER ==
--- NOTE | 2018-11-04 14:16 | EDPHY ---
H & P Time Seen by Provider: 11/04/18 14:12 HPI/ROS: Chief complaint. Back pain HPI. Patient is an 83-year-old male with nontraumatic low back pain for 5 days. The patient was admitted to the hospital October 23 discharged October 31 for GI bleed on warfarin. The warfarin has been stopped. The indication for warfarin was pulmonary embolus. He began have low back pain while in the hospital. It hurts to move. It is in the left low back. No radiation down leg. It hurts to move his leg but he does not think he has leg weakness. Moving his bowels without difficulty. But he does nose decreased force of urination over the past 2 weeks. 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 There has been no trauma or fall. Otherwise no chest pain or shortness of breath. No abdominal pain. He does have early satiety. Family tells me he has had mild tachycardia secondary to anemia since his recent GI bleed ROS 10 systems were reviewed and negative with the exception of the elements mentioned in the history of present illness Past Medical/Surgical History: Hypertension, GERD, recent GI bleed, pulmonary embolus, tumor left brainstem, TIAs, mi 0 dysplastic syndrome, lumbar tumor, L1 compression fracture Social History: , nonsmoker, no alcohol Smoking Status: Never smoked Physical Exam: General Appearance: Alert well-developed male moderate distress vital signs significant for heart rate 115 Eyes: Pupils equal and round no pallor or injection. ENT, Mouth: Mucous membranes are moist. Respiratory: There are no retractions, lungs are clear to auscultation. Cardiovascular: Regular rate and rhythm. Gastrointestinal: Abdomen is soft and nontender, no masses, bowel sounds normal. Neurological: Awake and alert, sensory and motor exams grossly normal. Straight leg raising positive on the left at 5 degrees. This positive on the right at about 20 degrees. Deep tendon reflexes are decreased bilaterally but symmetrical. Great toe strength on the left is normal. There is no dorsiflexion on the right. Normal sensation Skin: Warm and dry, no rashes. Musculoskeletal: Neck is supple nontender. Tender left lateral lumbar spine Extremities symmetrical, full range of motion. Psychiatric: Patient is oriented X 3, there is no agitation. Constitutional: Initial Vital Signs Temperature (C) 36.4 C 02/17/19 13:58 Heart Rate 115 H 11/04/18 13:58 Respiratory Rate 18 11/04/18 13:58 Blood Pressure 139/58 H 11/04/18 13:58 O2 Sat (%) 94 11/04/18 13:58 O2 Delivery Mode Nasal Cannula O2 (L/minute) 2 Allergies/Adverse Reactions: Sulfa (Sulfonamide Antibiotics) [Sulfa(Sulfonamide Antibiotics)] Allergy ( Verified 11/04/18 14:02) CAUSED KIDNEY PROB CHILD Home Medications: Medication Instructions Recorded Cholecalciferol Vit D3 [Vitamin D3 2,000 units PO HS 09/05/12 (*)] Lisinopril/Hctz 20/12.5MG 1 ea PO HS 09/05/12 [Zestoretic/Prinzide 20/12.5MG (*)] Levothyroxine [Synthroid 25 mcg 25 mcg PO DAILY06 03/04/16 (*)] Mirtazapine [Remeron] 30 mg PO HS 03/04/16 Cyanocobalamin [Vitamin B12 (*)] 1,000 mcg PO DAILY 09/29/18 Psyllium Husk (with Sugar) 1 each PO BID 09/29/18 [Metamucil Packet] Ranitidine HCl 300 mg PO HS 09/29/18 Acetaminophen [Tylenol 325mg (*)] 650 mg PO Q4HRS PRN tab 10/27/18 Pantoprazole Sodium [Protonix 40mg 40 mg PO BIDAC #80 tab 10/31/18 (*)] Hydrocodone/APAP 5/325 [[place] 1 each PO Q4-6PRN PRN #14 tab 11/04/18 5/325 (*)] Medical Decision Making - Diagnostics EKG Interpretation: EKG interpreted by me shows sinus tachycardia. Normal interval. Right bundle branch block. No significant ST elevation or depression. No arrhythmia. The rate is 111 Imaging Results: MRI lumbar spine without and with contrast shows a stable tumor from L1-L4. No evidence for cauda equina syndrome. Reviewed by me and discussed with Dr. Marcum Procedures: Old records are reviewed IV normal saline. Morphine for pain ED Course/Re-evaluation: Re-evaluation at 6:40 p.m. I recommended admission for the patient has he really has quite a bit of pain and difficult time even moving little lung walking. His family is coming from the airport and will be here in the next few minutes and we will have further discussion about disposition The family would like to take patient home. He has PT and OT at home and has is follow-up with his regular physician on . We will treat the patient for pain and they are encouraged to return at any point for worsening symptoms or inability to care for the patient at home Differential Diagnosis: I considered cauda equina syndrome, central canal lumbar stenosis. Patient has stable tumor that has not changed from previous MRI 2 years ago. - Data Points Laboratory Results: Laboratory Results 11/04/18 16:20 11/04/18 16:20 11/04/18 11/04/18 11/04/18 16:20 16:20 15:17 WBC 4.46 10^3/uL 10^3/uL (3.80-9.50) RBC 2.44 10^6/uL L 10^6/uL (4.40-6.38) Hgb 8.2 g/dL L g/dL (13.7-17.5) Hct 24.9 % L % (40.0-51.0) MCV 102.0 fL H fL (81.5-99.8) MCH 33.6 pg pg (27.9-34.1) MCHC 32.9 g/dL g/dL (32.4-36.7) RDW 19.7 % H % (11.5-15.2) Plt Count 57 10^3/uL L 10^3/uL (150-400) MPV 10.5 fL fL (8.7-11.7) Neut % (Auto) Not Reported Lymph % (Auto) Not Reported [place] % (Auto) Not Reported Eos % (Auto) Not Reported Baso % (Auto) Not Reported Nucleat RBC Rel Count Not Reported Absolute Neuts (auto) Not Reported Absolute Lymphs (auto) Not Reported Absolute Monos (auto) Not Reported Absolute Eos (auto) Not Reported Absolute Basos (auto) Not Reported Absolute Nucleated RBC Not Reported Immature Gran % Not Reported Seg Neutrophils % 45.0 % % Band Neutrophils % 5.0 % % Lymphocytes % 14.0 % % Monocytes % 29.0 % % Eosinophils % 0.0 % % Basophils % 0.0 % % Metamyelocytes % 1.0 % % Myelocytes % 0.0 % % Promyelocytes % 0.0 % % Blast Cells % 5.0 % % Immature Gran # Not Reported Absolute Seg Neuts 2.01 10^3/uL 10^3/uL (1.70-6.50) Absolute Band Neuts 0.22 10^3/uL 10^3/uL (0.00-0.70) Absolute Lymphocytes 0.62 10^3/uL L 10^3/uL (1.00-3.00) Absolute Monocytes 1.29 10^3/uL H 10^3/uL (0.30-0.80) Absolute Eosinophils 0.00 10^3/uL L 10^3/uL (0.03-0.40) Absolute Basophils 0.00 10^3/uL L 10^3/uL (0.02-0.10) Absolute Metamyelocyte 0.04 10^3/mL H 10^3/mL (0.00-0.00) Absolute Myelocytes 0.00 10^3/mL 10^3/mL (0.00-0.00) Absolute Promyelocytes 0.00 10^3/uL 10^3/uL (0.00-0.00) Absolute Plasma Cells 0.00 10^3/uL 10^3/uL (0.00-0.00) Nucleated RBCs 0 /100 WBC /100 WBC (0-0) Absolute Blast Cells 0.22 10^3/uL H 10^3/uL (0.00-0.00) Plasma Cells % 0.0 % % Platelet Estimate DECREASED L (ADEQ) Elliptocytes 1+ H Smear Review By Pending Sodium 136 mEq/L mEq/L (135-145) Potassium 3.6 mEq/L mEq/L (3.5-5.2) Chloride 109 mEq/L mEq/L (97-110) Carbon Dioxide 23 mEq/l mEq/l (22-31) Anion Gap 4 mEq/L L mEq/L (6-14) BUN 16 mg/dL mg/dL (7-23) Creatinine 0.8 mg/dL mg/dL (0.7-1.3) Estimated GFR > 60 Glucose 108 mg/dL H mg/dL (70-100) Calcium 7.7 mg/dL L mg/dL (8.5-10.4) POC Troponin I 0.00 ng/mL ng/mL (0.00-0.08) 11/04/18 15:10 WBC REJ RBC REJ Hgb REJ Hct REJ MCV REJ MCH REJ MCHC REJ RDW REJ Plt Count REJ MPV REJ Neut % (Auto) REJ Lymph % (Auto) REJ [place] % (Auto) REJ Eos % (Auto) REJ Baso % (Auto) REJ Nucleat RBC Rel Count REJ Absolute Neuts (auto) REJ Absolute Lymphs (auto) REJ Absolute Monos (auto) REJ Absolute Eos (auto) REJ Absolute Basos (auto) REJ Absolute Nucleated RBC REJ Immature Gran % REJ Seg Neutrophils % Band Neutrophils % Lymphocytes % Monocytes % Eosinophils % Basophils % Metamyelocytes % Myelocytes % Promyelocytes % Blast Cells % Immature Gran # REJ Absolute Seg Neuts Absolute Band Neuts Absolute Lymphocytes Absolute Monocytes Absolute Eosinophils Absolute Basophils Absolute Metamyelocyte Absolute Myelocytes Absolute Promyelocytes Absolute Plasma Cells Nucleated RBCs Absolute Blast Cells Plasma Cells % Platelet Estimate Elliptocytes Smear Review By Sodium Potassium Chloride Carbon Dioxide Anion Gap BUN Creatinine Estimated GFR Glucose Calcium POC Troponin I Medications Given: Discontinued Medications Sodium Chloride (Ns) 1,000 mls @ 0 mls/hr IV EDNOW ONE; Wide Open PRN Reason: Protocol Stop: 11/04/18 14:36 Last Admin: 11/04/18 15:00 Dose: 1,000 mls Morphine Sulfate (Morphine) 4 mg IVP EDNOW ONE Stop: 11/04/18 14:36 Last Admin: 11/04/18 15:02 Dose: 4 mg Morphine Sulfate (Morphine) 4 mg IVP EDNOW ONE Stop: 11/04/18 17:03 Last Admin: 11/04/18 17:05 Dose: 4 mg Point of Care Test Results: Chemistry 11/04/18 15:17 POC Troponin I 0.00 ng/mL ng/mL (0.00-0.08) Departure - Departure Disposition: Home, Routine, Self-Care Clinical Impression: Low back pain Condition: Good Instructions: Back Pain (ED) Additional Instructions: Hydrocodone 1 pill every 4-6 hours as needed for pain. Watch out for constipation and continue Metamucil Return for worsening pain, leg weakness, bowel or bladder symptoms Keep follow-up appointment with regular physician on Referrals: Roslyn Quesada MD [Primary Care Provider] - As per Instructions Prescriptions: Hydrocodone/APAP 5/325 [[place] 5/325 (*)] 1 each PO Q4-6PRN PRN #14 tab PRN Reason: Pain, Moderate
[2018-11-04] MEDS ORDERED: NS 1,000 ML IV ONE (14:35)
[2018-11-04 16:34] LABS: PLATELET COUNT 57 10^3/uL (150-400)
[2018-11-04] MEDS ORDERED: GADOBUTROL 10 ML VIAL IVP ONE (17:19)
[2018-11-04] MEDS ORDERED: HYDROCOD/APAP 5/325 PREPACK#6 BTL TAKEHOME ONE (19:09)
[2018-11-04] MEDS ORDERED: LIDOCAINE 4%/MENTHOL 1% PATCH TD ONE (19:14)
[2018-11-04 19:46] VITALS: BP 147/90
[2018-11-04] MEDS ORDERED: PATCH REMOVAL 1 EA PATCH TD SCH (21:00)
--- NOTE | 2018-11-04 21:14 | CPEKG ---
Test Reason : OPEN Blood Pressure : / mmHG Vent. Rate : 111 BPM Atrial Rate : 111 BPM P-R Int : 137 ms QRS Dur : 144 ms QT Int : 344 ms P-R-T Axes : 043 006 -34 degrees QTc Int : 468 ms Sinus tachycardia Right bundle branch block Confirmed by Misha Bustamante ([id number]) on 11/04/2018 9:13:27 PM Referred By: Misha Bustamante Confirmed By:Misha Bustamante
== END 2018-11-04 20:01 | disposition home or self-care (01) ==
DX: M54.5 Low back pain (principal); E86.9 Volume depletion, unspecified; Z88.2 Allergy status to sulfonamides
CPT/HCPCS: 72158; 93005; 96361; 96374; 96376; 99285; A9585; J2270; 84484-ER

== ENCOUNTER 2018-11-05 07:21 | Inpatient (IN) | payer OTHER ==
--- NOTE | 2018-11-05 07:25 | EDPHY ---
H & P Time Seen by Provider: 11/05/18 07:24 - Personal History Tetanus Vaccine Date: OVER 10 YRS AGO - Medical/Surgical History Hx Asthma: No Hx Chronic Respiratory Disease: No Hx Diabetes: No Hx Cardiac Disease: Yes Hx Renal Disease: No Hx Cirrhosis: No Hx Alcoholism: No Hx HIV/AIDS: No Hx Splenectomy or Spleen Trauma: No Other PMH: hypertension,gerd,PE's,tumor L brain stem, TIAs, Myelo Dysplastic Syndrome, lumbar/sacrum tumor, L1 compression fx - Social History Smoking Status: Never smoked Constitutional: Initial Vital Signs Temperature (C) 37.7 C 11/05/18 07:21 Heart Rate 133 H 11/05/18 07:21 Respiratory Rate 18 11/05/18 07:21 Blood Pressure 163/77 H 11/05/18 07:21 O2 Sat (%) 90 L 11/05/18 07:21 O2 Delivery Mode Nasal Cannula O2 (L/minute) 2 Allergies/Adverse Reactions: Sulfa (Sulfonamide Antibiotics) [Sulfa(Sulfonamide Antibiotics)] Allergy ( Verified 11/05/18 08:14) CAUSED KIDNEY PROB CHILD Home Medications: Medication Instructions Recorded Cholecalciferol Vit D3 [Vitamin D3 2,000 units PO HS 09/05/12 (*)] Lisinopril/Hctz 20/12.5MG 1 ea PO HS 09/05/12 [Zestoretic/Prinzide 20/12.5MG (*)] Levothyroxine [Synthroid 25 mcg 25 mcg PO DAILY06 03/04/16 (*)] Mirtazapine [Remeron] 30 mg PO HS 03/04/16 Cyanocobalamin [Vitamin B12 (*)] 1,000 mcg PO DAILY 09/29/18 Psyllium Husk (with Sugar) 1 each PO BID 09/29/18 [Metamucil Packet] Ranitidine HCl 300 mg PO HS 09/29/18 Pantoprazole Sodium [Protonix 40mg 40 mg PO BIDAC #80 tab 10/31/18 (*)] Hydrocodone/APAP 5/325 [[place] 1 each PO Q4-6PRN PRN #14 tab 11/04/18 5/325 (*)] Acetaminophen [Tylenol ES 500 mg 500 mg PO Q6HRS PRN 11/05/18 (*)] Medical Decision Making ED Course/Re-evaluation: CHIEF COMPLAINT: Fever, urinary retention HISTORY OF PRESENT ILLNESS: The patient is a possibly anticoagulated (Coumadin) 83 y/o male with a history of a recent GI bleed, [place], TIA, and lumbar compression fracture arriving via EMS for a fever and urinary retention. Yesterday the patient was seen in this emergency department for back pain. During that visit the patient had a lumbar MRI and labs without any significant findings. He was given a total of 6mg Morphine and was offered admission. The patient declined the admission because he had plan for follow up with PT and OT. However, when he returned home the patient developed a fever and was unable to urinate. Due to these symptoms his family became concerned that the patient might have sepsis and called EMS. While en route to the emergency department the patient was tachycardic but had a BP of 138/86. Currently the patient is stating that he has to urinate but is unable to. No headache, lightheadedness, chest pain, heart palpitations, shortness of breath, cough, abdominal pain, bowel complaints, numbness, paresthesias. REVIEW OF SYSTEMS: A 10 point review of systems was performed and is negative with the exception of the elements mentioned in the history of present illness. PHYSICAL EXAM: HR, BP, O2 Sat, RR. Temp noted General Appearance: Pale, alert, well hydrated, appropriate. Head: Atraumatic without scalp tenderness or obvious injury Eyes: Pupils equal, round, reactive to light and accommodation, EOMI, no trauma , no injection. Ears: Clear bilaterally, no perforation, normal landmarks Nose: Atraumatic, no rhinorrhea, clear. Throat: There is no erythema or exudates, no lesions, normal tonsils, mucus membranes moist. Neck: Supple, 2+ carotid upstroke, nontender, no lymphadenopathy. Respiratory: No retractions, no distress, no wheezes, and no accessory muscle use. Lungs are clear to auscultation bilaterally. Cardiovascular: Regular rate and rhythm, no murmurs, rubs, or gallops. Bilateral carotid, radial, dorsalis pedis, and posterior tibial pulses intact. Good capillary refill all extremities. Gastrointestinal: Has tenderness in the suprapubic region. Abdomen is soft, nontender, non-distended, no masses, no rebound, no guarding, no peritoneal signs. Musculoskeletal: Normal active ROM of all extremities, atraumatic. Neurological: Alert, appropriate, and interactive. The patient has normal DTRs and non-focal cranial nerves, motor, sensory, and cerebellar exam. Skin: No rashes, good turgor, no nodules on palpation. Past medical history: Hypertension, GERD, recent GI bleed, pulmonary embolus, tumor left brainstem, TIAs, [place], dysplastic syndrome, lumbar tumor, L1 compression fracture Past surgical history: Denies Family history: Denies Social history: Lives in [place], retired, family at bedside DIAGNOSTICS/PROCEDURES/CRITICAL CARE TIME: Not indicted. DIFFERENTIAL DIAGNOSIS: The differential diagnosis for the patient's urinary retention included but was not limited to medication side effect, neurologic causes, outflow obstruction including prostatic hypertrophy, and infection. MEDICAL DECISION MAKING: The patient is a possibly anticoagulated (Coumadin) 83 y/o male with a history of a recent GI bleed, WA, TIA, and lumbar compression fracture arriving via EMS for a fever and urinary retention. He had a normal lumbar MRI and labs yesterday , when he was here for back pain. A UA was not performed. On exam he appears pale and has a fullness in the suprapubic region. He is also stating that he has to urinate but is unable to. Labs and bladder scan ordered 0723: I met EMS upon arrival 0737: Patient's bladder scan reveals 551mL; Irvin catheter will be placed. 0757: Patient failed having first catheter placed. The nurse and tech are attempting to place a second catheter. Some clots and urine have been expressed but they are having difficulty inflating the balloon. 0809: Patient's hematocrit has improved from yesterday's visit. 0811: Patient is still not able to have a catheter placed; urology paged. 0818: I consulted with Dr. Overton, urology, regarding this patient. He agrees to consult on this patient. 0825: Patient does not have an elevated WBC, is not febrile, and is not hypertensive. I suspect that all of his symptoms are due to the urinary retention and not urosepsis. 0834: Reassessed patient as his family is now in the room. They report that the patient has had difficulty with urinary retention in the past. If the patient does not have sepsis after being consulted on by urology, the patient's family is comfortable with plan for discharge. They are working with a pillowcase sewer regarding placing the patient on palliative care. 0945: Patient successfully had a catheter placed after using a urojet. Urology consult cancelled. Patient is an established patient with Dr. Roberts, urologist, so I have advised him to follow up with Dr. Roberts in several days. Return precautions provided; patient is comfortable with this plan. 1055: I spoke with case management who report that this patient needs to be admitted as his family cannot care for him at home. I will consult with the hospitalist to admit this patient. 1105: I consulted with the hospitalist service, Dr. Kruger accepts admission of this patient for inability to ambulate and be cared for at home. I will also page the patient's meter tester polyphase, Dr. Smiley. 1156: I consulted with Dr. Mercedes, meter tester polyphase, regarding this patient. She agrees to consult on this patient during his admission. - Data Points Laboratory Results: Laboratory Results 11/05/18 06:50 11/05/18 06:50 11/05/18 11/05/18 11/05/18 08:30 08:00 06:50 WBC RBC Hgb Hct MCV MCH MCHC RDW Plt Count MPV Neut % (Auto) Lymph % (Auto) [place] % (Auto) Eos % (Auto) Baso % (Auto) Nucleat RBC Rel Count Absolute Neuts (auto) Absolute Lymphs (auto) Absolute Monos (auto) Absolute Eos (auto) Absolute Basos (auto) Absolute Nucleated RBC Immature Gran % Seg Neutrophils % Band Neutrophils % Lymphocytes % Monocytes % Eosinophils % Basophils % Metamyelocytes % Myelocytes % Promyelocytes % Blast Cells % Immature Gran # Absolute Seg Neuts Absolute Band Neuts Absolute Lymphocytes Absolute Monocytes Absolute Eosinophils Absolute Basophils Absolute Metamyelocyte Absolute Myelocytes Absolute Promyelocytes Absolute Plasma Cells Nucleated RBCs Absolute Blast Cells Plasma Cells % Platelet Estimate Polychromasia Oval Macrocytes Elliptocytes Smear Review By PT INR APTT VBG Lactic Acid 1.5 mmol/L mmol/L (0.7-2.1) Sodium 136 mEq/L mEq/L (135-145) Potassium 3.5 mEq/L mEq/L (3.5-5.2) Chloride 109 mEq/L mEq/L (97-110) Carbon Dioxide 21 mEq/l L mEq/l (22-31) Anion Gap 6 mEq/L mEq/L (6-14) BUN 15 mg/dL mg/dL (7-23) Creatinine 0.9 mg/dL mg/dL (0.7-1.3) Estimated GFR > 60 Glucose 119 mg/dL H mg/dL (70-100) Calcium 8.0 mg/dL L mg/dL (8.5-10.4) Total Bilirubin 0.9 mg/dL mg/dL (0.1-1.4) Urine Color YELLOW Urine Appearance HAZY Urine pH 5.0 (5.0-7.5) Ur Specific [place] 1.020 (1.002-1.030) Urine Protein 1+ H (NEGATIVE) Urine Ketones TRACE H (NEGATIVE) Urine Blood 3+ H (NEGATIVE) Urine Nitrate NEGATIVE (NEGATIVE) Urine Bilirubin NEGATIVE (NEGATIVE) Urine Urobilinogen NEGATIVE EU EU (0.2-1.0) Ur Leukocyte Esterase NEGATIVE (NEGATIVE) Urine RBC 50-182 /hpf H /hpf (0-3) Urine WBC 1-3 /hpf /hpf (0-3) Ur Epithelial Cells NONE SEEN /lpf /lpf (NONE-1+) Urine Mucus TRACE /lpf /lpf (NONE-1+) Urine Glucose NEGATIVE (NEGATIVE) 11/05/18 11/05/18 06:50 06:50 WBC 5.53 10^3/uL 10^3/uL (3.80-9.50) RBC 2.60 10^6/uL L 10^6/uL (4.40-6.38) Hgb 8.6 g/dL L g/dL (13.7-17.5) Hct 26.2 % L % (40.0-51.0) MCV 100.8 fL H fL (81.5-99.8) MCH 33.1 pg pg (27.9-34.1) MCHC 32.8 g/dL g/dL (32.4-36.7) RDW 20.2 % H % (11.5-15.2) Plt Count 69 10^3/uL L 10^3/uL (150-400) MPV 11.1 fL fL (8.7-11.7) Neut % (Auto) Not Reported Lymph % (Auto) Not Reported [place] % (Auto) Not Reported Eos % (Auto) Not Reported Baso % (Auto) Not Reported Nucleat RBC Rel Count Not Reported Absolute Neuts (auto) Not Reported Absolute Lymphs (auto) Not Reported Absolute Monos (auto) Not Reported Absolute Eos (auto) Not Reported Absolute Basos (auto) Not Reported Absolute Nucleated RBC Not Reported Immature Gran % Not Reported Seg Neutrophils % 41.0 % % Band Neutrophils % 1.0 % % Lymphocytes % 17.0 % % Monocytes % 39.0 % % Eosinophils % 0.0 % % Basophils % 0.0 % % Metamyelocytes % 0.0 % % Myelocytes % 1.0 % % Promyelocytes % 0.0 % % Blast Cells % 1.0 % % Immature Gran # Not Reported Absolute Seg Neuts 2.27 10^3/uL 10^3/uL (1.70-6.50) Absolute Band Neuts 0.06 10^3/uL 10^3/uL (0.00-0.70) Absolute Lymphocytes 0.94 10^3/uL L 10^3/uL (1.00-3.00) Absolute Monocytes 2.16 10^3/uL H 10^3/uL (0.30-0.80) Absolute Eosinophils 0.00 10^3/uL L 10^3/uL (0.03-0.40) Absolute Basophils 0.00 10^3/uL L 10^3/uL (0.02-0.10) Absolute Metamyelocyte 0.00 10^3/mL 10^3/mL (0.00-0.00) Absolute Myelocytes 0.06 10^3/mL H 10^3/mL (0.00-0.00) Absolute Promyelocytes 0.00 10^3/uL 10^3/uL (0.00-0.00) Absolute Plasma Cells 0.00 10^3/uL 10^3/uL (0.00-0.00) Nucleated RBCs 0 /100 WBC /100 WBC (0-0) Absolute Blast Cells 0.06 10^3/uL H 10^3/uL (0.00-0.00) Plasma Cells % 0.0 % % Platelet Estimate DECREASED L (ADEQ) Polychromasia 1+ H Oval Macrocytes 1+ H Elliptocytes 1+ H Smear Review By Pending PT 24.8 SEC H SEC (12.0-15.0) INR 2.24 H (0.83-1.16) APTT 49.6 SEC H SEC (23.0-38.0) VBG Lactic Acid Sodium Potassium Chloride Carbon Dioxide Anion Gap BUN Creatinine Estimated GFR Glucose Calcium Total Bilirubin Urine Color Urine Appearance Urine pH Ur Specific [place] Urine Protein Urine Ketones Urine Blood Urine Nitrate Urine Bilirubin Urine Urobilinogen Ur Leukocyte Esterase Urine RBC Urine WBC Ur Epithelial Cells Urine Mucus Urine Glucose Medications Given: Discontinued Medications Acetaminophen (Tylenol) 650 mg PO EDNOW ONE Stop: 11/05/18 11:05 Last Admin: 11/05/18 11:06 Dose: 650 mg Hydrocodone Bitart/Acetaminophen ([place] 5/325) 2 tab PO EDNOW ONE Stop: 11/05/18 10:57 Last Admin: 11/05/18 11:01 Dose: Not Given Lidocaine (Uroject Lidocaine 2% Jelly) 20 ml UR EDNOW ONE Stop: 11/05/18 09:33 Last Admin: 11/05/18 09:43 Dose: 20 ml Departure - Departure Disposition: [facility] Inpatient Acute Clinical Impression: Urinary retention, Unable to ambulate Condition: Fair Instructions: Urinary Retention in Men (ED) Additional Instructions: 1. Follow-up with your urologist within 72 hours. 2. Return to the Emergency Department for fever, worsening pain, flank pain or failure to improve within 72 hours. Referrals: Roslyn Quesada MD [Primary Care Provider] - As per Instructions Zen Roberts MD [Medical Doctor] - As per Instructions Report Scribed for: Efren Poe Report Scribed by: Miriam Downing Date of Report: 11/05/18 Time of Report: 07:25
[2018-11-05 08:07] LABS: PLATELET COUNT 69 10^3/uL (150-400)
[2018-11-05 08:17] LABS: INR 2.24 (0.83-1.16); PROTIME(PATIENT) 24.8 SEC (12.0-15.0)
[2018-11-05] MEDS ORDERED: LIDOCAINE 2% JELLY 20 ML (UROJECT) ONE (09:17)
[2018-11-05] MEDS ORDERED: LIDOCAINE 2% JELLY 20 ML (UROJECT) UR ONE (09:32)
[2018-11-05] MEDS ORDERED: HYDROCODONE/APAP 5/325 TAB PO ONE (10:56)
[2018-11-05] MEDS ORDERED: ACETAMINOPHEN 325 MG TAB PO ONE (11:04)
[2018-11-05] MEDS ORDERED: ONDANSETRON DISINTEGRATING 4 MG TAB PO PRN (11:29)
[2018-11-05] MEDS ORDERED: ONDANSETRON 4 MG/2 ML VIAL IVP PRN (11:29)
--- NOTE | 2018-11-05 11:49 | ASMTCMCOM ---
CM Note CM Note Notes: VM from Carol Bo, RN [facility] regarding pt.'s status. Pt in FED with urinary retention and back pain. He is accompanied by his daughter Cecilia and son in law Wiliam who is to the patient's other daughter Tia. Cecilia is in town from [facility]. Wiliam and Tia stay in the pt's home to provide care as needed. Wiliam expressed hopes of pt's return to prior level to physical funcioning. Pt. recently established in home care with [facility] but has had only one visit prior to current FED admission. He stated pt. was scheduled for PT and OT services but has not started yet. He further noted that pt. does not do well with narcotic pain management and he believes that is part of the decline. Carol Anupam came to ED to offer assistance to family. She noted a significant decline. Carol and this CM assessed family's ability to provide mobility/care. The family relayed that they had difficulty moving the pt. even with four people. Concerns were discussed with Dr. Poe and hospitalist was called for admission. Anne from [facility] returned prior call ) to coordinate care. Pt. will be reassessed for ongoing needs. Family would benefit from education regarding palliative/hospice care and role of SNF if appropriate. DC plan KYLE BAUMAN to follow. Date Signed: 11/05/2018 11:48 AM Electronically Signed By:Daniel Rueda LCSW
--- NOTE | 2018-11-05 12:00 | ASMTCMCOM ---
CM Note CM Note Notes: Referral sent to [facility] at the request of Anne in order to monitor pt. need. Date Signed: 11/05/2018 11:59 AM Electronically Signed By:Daniel Rueda LCSW
--- NOTE | 2018-11-05 14:25 | GHP ---
[f rep st] HISTORY AND PHYSICAL DATE OF ADMISSION: 11/05/2018 CHIEF COMPLAINT: Weakness. HISTORY OF PRESENT ILLNESS: This is an 83-year-old male with recently diagnosed MDS anemia, PE, on warfarin, who was hospitalized 10/23 through 10/31 for a hemoglobin of 6.6. Dr. 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 He was discharged home with plan for an outpatient capsule study. Coumadin has been on hold. Since being home, he has not felt well, but could not specify. Family is at bedside, states he has had poor oral intake and left lumbar back pain over the last couple days. Was unable to urinate last night complaining of chills. Did receive morphine while in the hospital and took 1 [place]. Denies any black or bloody stools. No epistaxis. REVIEW OF SYSTEMS: I completed a 10-point review of systems, negative except as noted in HPI. PAST MEDICAL HISTORY: [place], TIA, L1 compression fracture, GERD, pulmonary embolism, tumor left brainstem, newly diagnosed MDS, a lumbar tumor, hypothyroidism, and hypertension. PAST SURGICAL HISTORY: Cholecystectomy, benign spinal cord tumor excision 4 years ago. FAMILY HISTORY: Noncontributory. SOCIAL HISTORY: Uses a walker, is living with his daughter here in [place]. FAMILY HISTORY: Father of stomach cancer. Mother from stroke. HOME MEDICATIONS: Ranitidine 300 mg at bedtime, psyllium, Protonix 40 mg twice daily, Remeron 30 mg at bedtime, lisinopril/HCTZ 20/12.5 mg daily, levothyroxine 25 mcg daily, [place] 1 pill q.4-6 hours p.r.n., vitamin D3, Tylenol as needed. ALLERGIES: Sulfa. PHYSICAL EXAMINATION: VITAL SIGNS: Temperature 37.2, blood pressure is 147/70 , heart rate in 120s, respirations 18, 96% on 2 L. GENERAL: He is very fatigued, ill-appearing, very pale, but no acute distress. He is answering questions appropriately. HEENT: PERRLA. Dry mucous membranes. CV: Tachy, regular. No lower extremity edema. LUNGS: Poor effort. ABDOMEN: Soft, nontender. MUSCULOSKELETAL: Lidoderm patch left paraspinal region but no tenderness with palpation. Positive straight leg test on the left. NEURO: 2 through 12 intact. PSYCH: He is alert and oriented x3, but somnolent. Answering questions appropriately. LABS: WBC 5, hemoglobin 8.6, hematocrit 62, MCV 100, platelets are 69. INR is 2.2. Lactate is 1.5. Sodium 136, potassium 3.5, chloride 109, carbon dioxide 21, creatinine 0.9, glucose 119, calcium 8.0. Albumin from 10/28/2018, was 2.4. Echocardiogram 09/29/2018, EF 63%. No wall motion abnormality. Normal diastolic function. Lumbar spine MRI 11/04/2018, prior lumbar spine surgery changes with enhancing plaque-like tissue thickening within the posterior thecal sac at L1 through L4. Stable. Diffusely abnormal bone marrow signal throughout the lumbar spine compatible with history of myelodysplasia. Multilevel lumbar degenerative disk disease, most severe at L4-L5 where moderate central canal and bilateral neural foraminal narrowing is present. ASSESSMENT AND PLAN: 1. Urinary retention: Bladder scan showed 550 mL. A Irvin catheter was placed in the ER. Differential could be narcotics he received in the hospital, took a dose at home. There is no overt compression on lumbar spine yesterday. 2. Weakness: Suspect multifactorial with recent hospitalization, poor intake. Normal urinalysis, check UA. We will check a chest x-ray given cough and concern for possible aspiration, though he did have a swallow test recently that did not show aspiration. 3. History of pulmonary embolism: Holding Coumadin with recent concern for gastrointestinal bleed. 4. Problem concern for recent gastrointestinal bleed. 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 It was recommended to hold Coumadin until he can get an outpatient capsule study. H and H are stable from discharge. We will monitor closely. 5. Dysphagia. A video esophagram showed mild dysmotility. No aspiration. 6. Tachycardia: Suspect from dehydration. Appears dry, afebrile, in no pain. We will hydrate, monitor on telemetry. 7. 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 He will follow up with Dr. High. 8. Hypothyroidism. Synthroid. 9. Hypertension. Hold thiazide with dehydration. 10. Goals. I had a lengthy conversation with family and patient. DNR. Declined DNR last admission. 11. Deconditioning, physical therapy, occupational therapy. Has a chronic right footdrop. Has declined physical therapy in the past. Did express to the patient and family that rehab is likely discharge plan. The patient wants to think about it. 12. Diet: Regular. 13. Deep venous thrombosis prophylaxis. Sequential compression devices given myelodysplastic syndrome. 14. Moderate protein caloric malnutrition: Recent albumin was 2.4. We will provide supplemental shakes. 15. SIRs: fever, tachycardic. Unknown source. UA, CXR negative. NL lactate. Check blood cultures, GI, resp PCR DISPOSITION: Patient warrants inpatient admission given weakness requiring PT, OT, intravenous fluids. /[id number]/MODL MTDD
--- NOTE | 2018-11-05 14:51 | PDMN ---
Medical Necessity Medical necessity: [facility] General Admission: 83yo w/ recent dx MDS w/ hospitalization for anemia returns w/ urinary retention and increased weakness. Pt is tachycardic 120s-130s. Reports poor PO intake, appears dehydrated. H/H 8.6/26.2, plt 69K. Urinary cath placed, IVF started, BC pending. Warrants ongoing med nec care/IP status anticipating 2 MN for weakness requiring PT/OT and IVF. Hx [place], TIA, L1 compression fx, GERD, PE, tumor L brainstem, new MDS, lumbar tumor, hypothyroid and HTN.
[2018-11-05] MEDS: LIDOCAINE 4%/MENTHOL 1% PATCH TD SCH (15:28)
[2018-11-05] MEDS ORDERED: NS 500 ML IV ONE (15:43)
[2018-11-05] MEDS: NS 1,000 ML IV SCH (16:02)
[2018-11-05] MEDS: ACETAMINOPHEN 325 MG TAB PO PRN (18:27)
[2018-11-05] MEDS: PANTOPRAZOLE SODIUM 40 MG TAB PO SCH (18:28)
[2018-11-05] MEDS ORDERED: NS BOLUS 500 ML (Wide open) IV ONE (21:30)
[2018-11-05] MEDS: MIRTAZAPINE 30 MG TAB PO SCH (22:55)
[2018-11-05] MEDS: FAMOTIDINE 20 MG TAB PO SCH (22:55)
[2018-11-05] MEDS: CHOLECALCIFEROL VIT D3 1,000 UNITS TAB PO SCH (23:00)
[2018-11-05] MEDS: PSYLLIUM METAMUCIL 1 PKT PO SCH (23:00)
[2018-11-05] MEDS: PATCH REMOVAL 1 EA PATCH TD SCH (23:00)
[2018-11-06] MEDS: ACETAMINOPHEN 325 MG TAB PO PRN ×2 (02:57→15:44)
[2018-11-06] MEDS: NS 1,000 ML IV SCH ×2 (05:14→22:34)
[2018-11-06 05:48] LABS: PLATELET COUNT 46 10^3/uL (150-400)
[2018-11-06] MEDS: LEVOTHYROXINE 25 MCG TAB PO SCH (05:54)
[2018-11-06] MEDS: PANTOPRAZOLE SODIUM 40 MG TAB PO SCH ×2 (05:54→17:56)
[2018-11-06] MEDS: CYANO/VITAMIN B12 1000 MCG TAB PO SCH (08:23)
[2018-11-06] MEDS: LIDOCAINE 4%/MENTHOL 1% PATCH TD SCH (08:26)
[2018-11-06] MEDS: PSYLLIUM METAMUCIL 1 PKT PO SCH ×2 (08:26→20:33)
--- NOTE | 2018-11-06 10:10 | HOSPPROG ---
Hospitalist Progress Note Assessment/Plan: #Sepsis: leukocytosis, tachy, + C diff #Acute C diff infection: oral Vanc ( Day 1) #Anemia: H/H down today; all lines down with fluids. Denies black stools. Repeat H/H # Urinary retention: Bladder scan showed 550 mL. A Irvin catheter was placed in the ER. Differential could be narcotics he received in the hospital, took a dose at home. There is no overt compression on lumbar spine yesterday. # Weakness: multifactorial C diff infection, recent hospitalization, poor intake, anemia #Concern for dysphagia: coughs with drinking, recent video swallow shows dysmotility, no aspiration #History of pulmonary embolism: Holding Coumadin with recent concern for gastrointestinal bleed. #Concern for recent gastrointestinal bleed. 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 -plan for capsule study; scheduled Monday (spoke with GI; cannot be done inpatient) # Tachycardia: dehydration, C diff infection # Myelodysplastic syndrome: recent diagnosis this year. May need transfusion. FU outpatient with Dr. High. #Hypothyroidism. Synthroid. #Hypertension. Hold thiazide with dehydration. # Deconditioning, physical therapy, occupational therapy. Has a chronic right footdrop. Has declined physical therapy in the past. Did express to the patient and family that rehab is likely discharge plan. The patient wants to think about it. # Moderate protein caloric malnutrition: Recent albumin was 2.4. Supplemental shakes. #DVT ppx: SCDs Inpatient admission for IVFs, PT Objective: Vital Signs Temp Pulse Resp BP Pulse Ox 36.5 C 117 H 19 137/62 H 92 11/06/18 08:00 11/06/18 08:00 11/06/18 08:00 11/06/18 08:00 11/06/18 08:00 Microbiology 11/06/18 03:15 Gastrointestinal Tract Panel (PCR) - Final Stool Clostridium Difficile Detected 11/06/18 03:00 Respiratory Panel (PCR) - Final Nasal, Sinus - Unspecified No Organism Detected By Pcr Laboratory Results 11/06/18 05:13 11/05/18 11/06/18 11/07/18 05:59 05:59 05:59 Intake Total 3055 Output Total 800 Balance 2255 PT 24.8 SEC (12.0-15.0) H 11/05/18 06:50 INR 2.24 (0.83-1.16) H 11/05/18 06:50 ICD10 Worksheet Patient Problems: Problems Problem Status Onset Unable to ambulate Acute Urinary retention Acute Anemia Acute Cerebral vascular accident Acute Dyspnea Acute Intradural tumor Acute Myelodysplasia (myelodysplastic syndrome) Acute Pulmonary embolism Acute Shortness of breath Acute Weakness Acute
--- NOTE | 2018-11-06 11:21 | HOSPPROG ---
Hospitalist Progress Note Assessment/Plan: DIAGNOSES: * Acute sepsis * Acute C diff colitis * Worsening anemia, heme-positive stool so bleeding in addition to his myelodysplastic syndrome * Persisting coagulopathy with no Coumadin * Worsening thrombocytopenia from his MDS 46 K, may be contributing to bleeding * History of PE 2016, high risk of recurrence due to hematologic issues; off Coumadin since 10/27 * Severe generalized weakness, deconditioning, gait instability * Dysphagia, with an episode of severe coughing during breakfast today (no aditi aspiration on recent video swallow; states he was eating too quickly today ) * MDS with excessive blasts * Hypertension, diuretic being held * Moderate protein calorie malnutrition PLANS: * Continue treatment for C diff with oral vancomycin * IV hydration * Transfuse 1 unit of red blood cells today * Consider platelet transfusion after discussion with Dr. High * Will give vitamin K, consider FFP after discussion with Dr. High * Continue off Coumadin * Follow blood counts and vital signs closely * Fall risk precaution SUBJECTIVE: Patient continues to complain of ongoing diffuse lumbar back pain without neuropathic or radicular symptoms and without change in bowel or bladder function Continues to have copious diarrhea today He has not looked to see if there is blood in the stool or not (tests heme positive) No rigors, no shortness of breath or chest pain, has not been out of bed yet OBJECTIVE Vitals reviewed: Increasingly tachycardic this morning the blood pressures are good, respirations Are okay remains febrile 38.9 early this morning [employer], my review: Exam: alert oriented skin warm dry color ok resps not labored lungs clear BSs heart regular abd soft nondistended nontender, bowel sounds present limbs warm, no edema iv site ok Lab data: Hemoglobin down to 7 today, platelets down to 46,000 I reviewed the images from the MRI of his lumbar spine. There is no evidence of fracture or acute infection or mass, he does have diffuse abnormal marrow signal related to his MDS Objective: Vital Signs Temp Pulse Resp BP Pulse Ox 36.5 C 117 H 19 137/62 H 92 11/06/18 08:00 11/06/18 08:00 11/06/18 08:00 11/06/18 08:00 11/06/18 08:00 Microbiology 11/06/18 03:15 Gastrointestinal Tract Panel (PCR) - Final Stool Clostridium Difficile Detected 11/06/18 03:00 Respiratory Panel (PCR) - Final Nasal, Sinus - Unspecified No Organism Detected By Pcr Laboratory Results 11/06/18 05:13 11/05/18 11/06/18 11/07/18 06:59 06:59 06:59 Intake Total 3055 Output Total 800 Balance 2255 PT 24.8 SEC (12.0-15.0) H 11/05/18 06:50 INR 2.24 (0.83-1.16) H 11/05/18 06:50 - Time Spent With Patient Time Spent with Patient: greater than 35 minutes Time Spent with Patient: Greater than 35 minutes spent on this patients care, greater than 50% of time spent counseling, educating, and coordinating care regarding the above mentioned plan. ICD10 Worksheet Patient Problems: Problems Problem Status Onset Unable to ambulate Acute Urinary retention Acute Anemia Acute Cerebral vascular accident Acute Dyspnea Acute Intradural tumor Acute Myelodysplasia (myelodysplastic syndrome) Acute Pulmonary embolism Acute Shortness of breath Acute Weakness Acute
[2018-11-06] MEDS ORDERED: PHYTONADIONE 10 MG in NS 50 ML IV ONE (11:48)
[2018-11-06] MEDS: VANCOMYCIN 125 MG/2.5 ML UDL PO SCH ×4 (14:06→20:34)
--- NOTE | 2018-11-06 16:34 | ASMTCMCOM ---
CM Note CM Note Notes: OT/PROGRAM ANALYST rec SNF, PT eval pending. Spoke with pt and family about SNF, pt dghtrs Cecilia and Tia bedside as well as son in law Wiliam. Pt verbalizes he is willing to go to SNF and with family consideration the SNF choice is [facility]. Referral sent in [employer]. CM to follow. Date Signed: 11/06/2018 04:33 PM Electronically Signed By:ANTWON Leigh
[2018-11-06] MEDS: MIRTAZAPINE 30 MG TAB PO SCH (20:33)
[2018-11-06] MEDS: CHOLECALCIFEROL VIT D3 1,000 UNITS TAB PO SCH (20:33)
[2018-11-06] MEDS: PATCH REMOVAL 1 EA PATCH TD SCH (20:37)
[2018-11-06] MEDS: FAMOTIDINE 20 MG TAB PO SCH (20:37)
[2018-11-07] MEDS: LEVOTHYROXINE 25 MCG TAB PO SCH (06:15)
[2018-11-07] MEDS: VANCOMYCIN 125 MG/2.5 ML UDL PO SCH ×4 (06:16→20:44)
[2018-11-07 06:21] LABS: INR 1.6 (0.83-1.16); PROTIME(PATIENT) 19.2 SEC (12.0-15.0)
[2018-11-07 06:53] LABS: PLATELET COUNT 48 10^3/uL (150-400)
[2018-11-07] MEDS: NS 1,000 ML IV SCH ×2 (09:31→22:30)
[2018-11-07] MEDS: LIDOCAINE 4%/MENTHOL 1% PATCH TD SCH (09:32)
[2018-11-07] MEDS: PSYLLIUM METAMUCIL 1 PKT PO SCH ×2 (09:32→20:45)
[2018-11-07] MEDS: CYANO/VITAMIN B12 1000 MCG TAB PO SCH (09:32)
[2018-11-07] MEDS: PANTOPRAZOLE SODIUM 40 MG TAB PO SCH ×2 (09:32→17:34)
[2018-11-07] MEDS: ACETAMINOPHEN 325 MG TAB PO PRN ×2 (12:54→17:35)
--- NOTE | 2018-11-07 14:26 | ASMTCMCOM ---
CM Note CM Note Notes: 11/07/2018 Case Management Note Discussed updates with Wiliam pt son in law ( of DARRIN Weber). [facility] accepted pt. Family agreeable to [facility]. Wiliam mentioned that [facility] called this morning for appointment. Faxed updates to [facility]. Encouraged Wiliam to meet with [facility] for discharge supports. Notified [facility] of d/c to [facility]. Case Management d/c poc: [facility] Case Management to follow. Date Signed: 11/07/2018 02:26 PM Electronically Signed By:Sari Gatica RN
--- NOTE | 2018-11-07 16:11 | HOSPPROG ---
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 seen on egd earlier this month); 1 unit RBC transfused 11/06 * Persisting anticoagulation off Coumadin > 1wk (better now after vit K) * Worsening thrombocytopenia from his MDS 46 K, may be contributing to bleeding * History of PE 2015, high risk of recurrence due to hematologic issues; off Coumadin since 10/27/18 due to bleed * Dysphagia, with an episode of severe coughing during breakfast today (no aditi aspiration on recent video swallow; states he was eating too quickly today ) - on thickened/purees which he is unhappy with * Severe generalized weakness, deconditioning, gait instability * MDS with excessive blasts * Hypertension, diuretic being held * Moderate protein calorie malnutrition * Ongoing focal lumbar back pain x3 weeks, prior unrevealing MRI PLANS: * Continue treatment for C diff with oral vancomycin * IV hydration * Continue off Coumadin * avoid NSAIDS * Follow blood counts and vital signs closely * Fall risk precaution * PT OT * altered diet, LUMBER RACKER therapy * consider NG feeds if appetite does no pick up worker * Dr. Abdias Montes from Hematology-Oncology will see the patient Met with some family members today at bedside including Wiliam CAMARENA. They had many questions about his condition, prognosis, treatment plan etc. I answered all these questions for them in detail and reviewed other issues as well. SUBJECTIVE: Diarrhea slowing somewhat No abdominal pain nausea or vomiting Appetite remains quite poor and oral intake poor Still quite weak Still has his ongoing focal lumbar musculoskeletal pain (previous unrevealing MRI) OBJECTIVE Vitals reviewed: Increasingly tachycardic this morning the blood pressures are good, respirations Are okay remains febrile 38.9 early this morning Title Curator, my review: Exam: alert oriented skin warm dry color ok resps not labored lungs clear BSs heart regular abd soft nondistended nontender, bowel sounds present limbs warm, no edema iv site ok Lab data: Hemoglobin down to 7 today, platelets down to 46,000 I reviewed the images from the MRI of his lumbar spine. There is no evidence of fracture or acute infection or mass, he does have diffuse abnormal marrow signal related to his MDS Objective: Vital Signs Temp Pulse Resp BP Pulse Ox 36.5 C 96 28 H 138/66 H 96 11/07/18 12:38 11/07/18 12:38 11/07/18 12:38 11/07/18 12:38 11/07/18 12:38 Laboratory Results 11/07/18 04:43 11/06/18 11/07/18 11/08/18 06:59 06:59 06:59 Intake Total 3055 1500 350 Output Total 800 1325 Balance 2255 175 350 PT 19.2 SEC (12.0-15.0) H 11/07/18 04:43 INR 1.60 (0.83-1.16) H 11/07/18 04:43 - Time Spent With Patient Time Spent with Patient: greater than 35 minutes Time Spent with Patient: Greater than 35 minutes spent on this patients care, greater than 50% of time spent counseling, educating, and coordinating care regarding the above mentioned plan. ICD10 Worksheet Patient Problems: Problems Problem Status Onset Unable to ambulate Acute Urinary retention Acute Anemia Acute Cerebral vascular accident Acute Dyspnea Acute Intradural tumor Acute Myelodysplasia (myelodysplastic syndrome) Acute Pulmonary embolism Acute Shortness of breath Acute Weakness Acute
[2018-11-07] MEDS: MIRTAZAPINE 30 MG TAB PO SCH (20:44)
[2018-11-07] MEDS: CHOLECALCIFEROL VIT D3 1,000 UNITS TAB PO SCH (20:44)
[2018-11-07] MEDS: FAMOTIDINE 20 MG TAB PO SCH (20:44)
[2018-11-07] MEDS: PATCH REMOVAL 1 EA PATCH TD SCH (20:46)
[2018-11-08] MEDS: VANCOMYCIN 125 MG/2.5 ML UDL PO SCH ×4 (05:06→22:39)
[2018-11-08] MEDS: LEVOTHYROXINE 25 MCG TAB PO SCH (05:06)
[2018-11-08 06:28] LABS: INR 1.41 (0.83-1.16); PROTIME(PATIENT) 17.4 SEC (12.0-15.0)
[2018-11-08 07:17] LABS: PLATELET COUNT 43 10^3/uL (150-400)
[2018-11-08] MEDS: LIDOCAINE 4%/MENTHOL 1% PATCH TD SCH (08:56)
[2018-11-08] MEDS: CYANO/VITAMIN B12 1000 MCG TAB PO SCH (08:58)
[2018-11-08] MEDS: PANTOPRAZOLE SODIUM 40 MG TAB PO SCH ×2 (09:01→18:03)
[2018-11-08] MEDS: PSYLLIUM METAMUCIL 1 PKT PO SCH ×2 (09:02→22:40)
[2018-11-08] MEDS: NS 1,000 ML IV SCH (09:31)
[2018-11-08] MEDS ORDERED: predniSONE 20 MG TAB PO ONE (14:21)
--- NOTE | 2018-11-08 14:27 | HOSPPROG ---
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 seen on egd earlier this month); 1 unit RBC transfused 11/06 follow hct daily urinary retention: dc segura poor appetite: trial of prednisone X [address] (images interp by me) Persisting anticoagulation off Coumadin > 1wk (better now after vit K) thrombocytopenia from his MDS 46 K, may be contributing to bleeding History of PE 2016, high risk of recurrence due to hematologic issues; off Coumadin since 10/27/18 due to bleed Dysphagia, with an episode of severe coughing during breakfast today (no aditi aspiration on recent video swallow; states he was eating too quickly today) - on thickened/purees which he is unhappy with change back to thin liquids Severe generalized weakness, deconditioning, gait instability MDS with excessive blasts yet to be treated 2/2 declining health status Hypertension, diuretic being held Moderate protein calorie malnutrition Ongoing focal lumbar back pain x3 weeks, prior unrevealing MRI Subjective: 35' spent at bedside discussing plan of care Objective: Vital Signs Temp Pulse Resp BP Pulse Ox 36.9 C 107 H 22 H 135/64 H 91 L 11/08/18 12:00 11/08/18 12:00 11/08/18 12:00 11/08/18 12:00 11/08/18 12:00 Laboratory Results 11/08/18 05:40 11/07/18 11/08/18 11/09/18 05:59 05:59 05:59 Intake Total 1000 3350 Output Total 625 1050 350 Balance 375 2300 -350 PT 17.4 SEC (12.0-15.0) H 11/08/18 05:40 INR 1.41 (0.83-1.16) H 11/08/18 05:40 - Physical Exam Constitutional: no apparent distress, chronically ill appearing Eyes: PERRL, anicteric sclera Ears, Nose, Mouth, Throat: moist mucous membranes, hearing normal Cardiovascular: regular rate and rhythym, no murmur, rub, or gallop Respiratory: no respiratory distress, no rales or rhonchi Gastrointestinal: normoactive bowel sounds, soft, non-tender abdomen Genitourinary: no bladder fullness, segura in urethra Skin: warm, normal color Musculoskeletal: full muscle strength Neurologic: AAOx3 ICD10 Worksheet Patient Problems: Problems Problem Status Onset Unable to ambulate Acute Urinary retention Acute Anemia Acute Cerebral vascular accident Acute Dyspnea Acute Intradural tumor Acute Myelodysplasia (myelodysplastic syndrome) Acute Pulmonary embolism Acute Shortness of breath Acute Weakness Acute
--- NOTE | 2018-11-08 14:59 | CPEKG ---
Test Reason : OPEN Blood Pressure : / mmHG Vent. Rate : 106 BPM Atrial Rate : 106 BPM P-R Int : 135 ms QRS Dur : 143 ms QT Int : 398 ms P-R-T Axes : 045 011 -29 degrees QTc Int : 529 ms Sinus tachycardia Right bundle branch block Confirmed by Diaz Cardenas ([id number]) on 11/08/2018 2:58:28 PM Referred By: Chloe Kruger Confirmed By:Diaz Cardenas
[2018-11-08] MEDS: ACETAMINOPHEN 325 MG TAB PO PRN (15:56)
--- NOTE | 2018-11-08 16:16 | WOCRNPDOC ---
WOCRN Advanced Assessment Note - Skin Integrity Problem, Advanced Assess Left Anterior Ankle Pressure Injury Dressing Type: Open to Air Site Measurement - Head-to-Toe Length X Width X Depth (cm): 0.3x0.6x0 Pressure Injury Stage: Deep Tissue Injury (DTI) Skin Integrity Problem Comment: From crease in RACQUEL hose. May cover with foam dressing to cover. Wound care will follow.
--- NOTE | 2018-11-08 21:00 | PDCONSULT ---
Radio Electrician Note: Patient is an 82 year old male with a recent diagnosis of myelodysplastic syndrome admitted for weakness secondary c. diff diarrhea. Patient is not awake and is too fatigued to give much of a history. Patient was recently admitted for a GI bleed while on warfarin which was felt to be secondary to a vascular ectasia. Coumadin was held. Patient was subsequently seen again in the ER for low back pain and was treated with narcotics. The morphine seemed to precipitate urinary retention and generalized weakness. He was subsequently re-admitted and found to have c. diff diarrhea. He has unfortunately struggled with appetite for quiet some time and has less energy. He hasn't seemed to respond to transfusion in regards to energy. He seemed to have more energy today and did some walking around the room and PT. In September patient was evaluated by hematology for pancytopenia bone marrow biopsy was performed on 10/02/2018 with the results demonstrating normal cellular marrow at 20-30% with dysmorphic hematopoiesis and increased blasts 5% by morphology with increased bone marrow storage iron. This is felt to best be classified as myelodysplastic syndrome with excess blasts 2. 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 He started EPO last week and only made it one week before requiring transfusion this hospitalization. Patient actually reports feeling rather well today with some improved energy and some ability to control his BMs. 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 Review of systems: A complete 12 point review of systems is obtained and found to be negative unless indicated in the history of present illness Physical Examination: VS reviewed General: no acute distress non toxic appearing HEENT: PERRL, no icterus, + pallor, oral mucosa is moist without lesions Neck: supple CV: RRR without rubs thrills or gallops Chest: wet crackles at bilateral bases, no tachypnea Abdomen: soft, distended and tense with rigidity, no guarding or rebound, no HSM Extremities:bilateral 1-2+ pitting edema, warm and well perfused Neuro: alert and oriented x 3 Allergy/AdvReac Type Severity Reaction Status Date / Time Sulfa (Sulfonamide Allergy CAUSED Verified 11/05/18 08:14 Antibiotics) KIDNEY [Sulfa(Sulfonamide PROB Antibiotics)] CHILD Generic Name Dose Route Start Last Admin Trade Name Freq PRN Reason Stop Dose Admin Acetaminophen 650 mg 11/05/18 11:29 11/09/18 08:41 Tylenol PO 05/04/19 11:28 650 mg Q4HRS PRN Administration Pain, Mild/Fever, Can Take PO Cholecalciferol 2,000 units 11/05/18 21:00 11/09/18 21:14 Vitamin D PO 05/04/19 20:59 2,000 units HS HUDSON Administration Famotidine 40 mg 11/05/18 21:00 11/09/18 21:14 Pepcid PO 05/04/19 20:59 40 mg HS HUDSON Administration Levothyroxine Sodium 25 mcg 11/06/18 06:00 11/09/18 06:12 Synthroid PO 05/05/19 05:59 25 mcg DAILY06 HUDSON Administration Mirtazapine 30 mg 11/05/18 21:00 11/09/18 21:15 Remeron PO 05/04/19 20:59 30 mg HS HUDSON Administration Miscellaneous Information 1 ea 11/05/18 21:00 11/09/18 21:17 Patch Removal TD 05/04/19 20:59 1 ea DAILY21 HUDSON Administration Miscellaneous Medication 1 patch 11/05/18 14:00 11/09/18 08:41 Icy Hot Lidocaine/Menthol 4%/1% Patch TD 05/04/19 13:59 1 patch DAILY HUDSON Administration Ondansetron HCl 4 mg 11/05/18 11:29 Zofran IVP 05/04/19 11:28 Q4HRS PRN Nausea/Vomiting, Can't Take PO Ondansetron HCl 4 mg 11/05/18 11:29 Zofran Odt PO 05/04/19 11:28 Q4HRS PRN Nausea/Vomiting, Use 1st Pantoprazole Sodium 40 mg 11/05/18 17:30 11/09/18 18:12 Protonix PO 05/04/19 17:29 40 mg BIDAC HUDSON Administration Psyllium Hydrophilic Mucilloid 1 each 11/05/18 21:00 11/09/18 21:15 Metamucil/Konsyl PO 05/04/19 20:59 Not Given BID HUDSON Vancomycin HCl 125 mg 11/06/18 10:04 11/09/18 21:15 Vancocin Oral Liquid PO 12/06/18 10:03 125 mg QID HUDSON Administration Protocol Vitamin B Complex 1,000 mcg 11/06/18 09:00 11/09/18 08:42 Vitamin B12 PO 05/05/19 08:59 1,000 mcg DAILY HUDSON Administration Discontinued Medications Generic Name Dose Route Start Last Admin Trade Name Freq PRN Reason Stop Dose Admin Acetaminophen 650 mg 11/05/18 11:04 11/05/18 11:06 Tylenol PO 11/05/18 11:05 650 mg EDNOW ONE Administration Hydrocodone Bitart/Acetaminophen 2 tab 11/05/18 10:56 11/05/18 11:01 Danube 5/325 PO 11/05/18 10:57 Not Given EDNOW ONE Sodium Chloride 1,000 mls @ 100 mls/hr 11/05/18 15:15 11/08/18 09:31 Ns IV 05/04/19 15:14 1,000 mls CONT HUDSON Administration Sodium Chloride 500 mls @ 1,500 mls/hr 11/05/18 15:43 11/05/18 16:08 Ns IV 11/05/18 16:02 500 mls ONCE ONE Administration Sodium Chloride 500 mls @ 0 mls/hr 11/05/18 21:30 11/05/18 21:48 Ns IV 11/05/18 21:31 500 mls ONCE ONE Administration Wide Open Phytonadione 10 mg/ Sodium 51 mls @ 204 mls/hr 11/06/18 11:48 11/06/18 15:41 Chloride IV 11/06/18 12:02 51 mls ONCE ONE Administration Lidocaine Confirm 11/05/18 09:17 Uroject Lidocaine 2% Jelly Administered 11/05/18 09:18 Dose 20 ml .ROUTE .STK-MED ONE Lidocaine 20 ml 11/05/18 09:32 11/05/18 09:43 Uroject Lidocaine 2% Jelly UR 11/05/18 09:33 20 ml EDNOW ONE Administration Prednisone 60 mg 11/08/18 14:21 11/08/18 15:45 Prednisone PO 11/08/18 14:22 60 mg ONCE ONE Administration Assessment and Plan: Patient is a 83 year old male with MDS admitted for c. diff diarrhea. Problem #1 - MDS Patient has very high risk disease with IPSS-R score of 7.5 signifying median survival of roughly 1 yr or less - likely less in this case given frequent hospitalizations and poor PFS. Discussed with patient and family the significance of this. We have drawn an EPO level to see if ongoing EPO therapy would be beneficial, unlikely given high risk disease. Too ill currently for hypomethylating agent. He is functionally neutropenic and anticipate this will make recovery from c. diff challenging. -Will see patient next week as outpatient. Problem # 2 - Coagulopathy Secondary to vitamin K deficiency, recent warfarin usage, improving with vitamin K Problem #3 Severe C diff Seems to be improving clinically -continue oral vancomycin
[2018-11-08] MEDS: CHOLECALCIFEROL VIT D3 1,000 UNITS TAB PO SCH (22:39)
[2018-11-08] MEDS: FAMOTIDINE 20 MG TAB PO SCH (22:39)
[2018-11-08] MEDS: MIRTAZAPINE 30 MG TAB PO SCH (22:39)
[2018-11-08] MEDS: PATCH REMOVAL 1 EA PATCH TD SCH (22:40)
[2018-11-09] MEDS: LEVOTHYROXINE 25 MCG TAB PO SCH (06:12)
[2018-11-09] MEDS: VANCOMYCIN 125 MG/2.5 ML UDL PO SCH ×4 (06:13→21:15)
[2018-11-09 06:14] LABS: INR 1.29 (0.83-1.16); PROTIME(PATIENT) 16.3 SEC (12.0-15.0)
[2018-11-09 06:40] LABS: PLATELET COUNT 145 10^3/uL (150-400)
[2018-11-09] MEDS: PSYLLIUM METAMUCIL 1 PKT PO SCH ×2 (08:17→21:15)
[2018-11-09] MEDS: ACETAMINOPHEN 325 MG TAB PO PRN (08:41)
[2018-11-09] MEDS: LIDOCAINE 4%/MENTHOL 1% PATCH TD SCH (08:41)
[2018-11-09] MEDS: PANTOPRAZOLE SODIUM 40 MG TAB PO SCH ×2 (08:42→18:12)
[2018-11-09] MEDS: CYANO/VITAMIN B12 1000 MCG TAB PO SCH (08:42)
--- NOTE | 2018-11-09 14:45 | HOSPPROG ---
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); 1 unit RBC transfused 11/06 follow hct daily 11/09- stable w no melena urinary retention: segura out poor appetite: trial of prednisone X [address] (images interp by me) 11/09- improved today will not continue steroids given side effects notes eating less of a chore than it was a month ago Persisting anticoagulation off Coumadin > 1wk (better now after vit K) thrombocytopenia from his MDS 46 K, may be contributing to bleeding History of PE 2016, high risk of recurrence due to hematologic issues; off Coumadin since 10/27/18 due to bleed Dysphagia, with an episode of severe coughing during breakfast today (no aditi aspiration on recent video swallow; states he was eating too quickly today) - on thickened/purees which he is unhappy with change back to thin liquids 11/09- doing well Severe generalized weakness, deconditioning, gait instability pt/ot rec snf MDS with excessive blasts yet to be treated 10/20 declining health status Hypertension, diuretic being held Moderate protein calorie malnutrition Ongoing focal lumbar back pain x3 weeks, prior unrevealing MRI Subjective: diarrhea decreasing. confirmed dnr. amenable to possible SNF stay. segura out Objective: Vital Signs Temp Pulse Resp BP Pulse Ox 36.6 C 86 17 135/63 H 99 11/09/18 11:47 11/09/18 11:47 11/09/18 11:47 11/09/18 11:47 11/09/18 11:47 Laboratory Results 11/09/18 05:23 11/08/18 11/09/18 11/10/18 05:59 05:59 05:59 Intake Total 3350 100 Output Total 1050 350 Balance 2300 -250 PT 16.3 SEC (12.0-15.0) H 11/09/18 05:23 INR 1.29 (0.83-1.16) H 11/09/18 05:23 - Physical Exam Constitutional: no apparent distress, appears nourished Eyes: PERRL, anicteric sclera Ears, Nose, Mouth, Throat: moist mucous membranes, hearing normal Cardiovascular: regular rate and rhythym, no murmur, rub, or gallop Respiratory: no respiratory distress, no rales or rhonchi Gastrointestinal: normoactive bowel sounds, soft, non-tender abdomen Genitourinary: no bladder fullness, No segura in urethra Skin: warm, normal color Musculoskeletal: No full muscle strength Neurologic: AAOx3 Psychiatric: interacting appropriately ICD10 Worksheet Patient Problems: Problems Problem Status Onset Unable to ambulate Acute Urinary retention Acute Anemia Acute Cerebral vascular accident Acute Dyspnea Acute Intradural tumor Acute Myelodysplasia (myelodysplastic syndrome) Acute Pulmonary embolism Acute Shortness of breath Acute Weakness Acute
--- NOTE | 2018-11-09 14:55 | ASMTCMCOM ---
CM Note CM Note Notes: 11/09/2018 Case Management Note Discussed with . D/C possible tomorrow. Faxed updates to [employer]. Auth was requested on 11/06. Confirmed with Natacha from [employer] that auth was approved. Case Management d/c poc: [facility] rehab with [facility]. [facility] to resume after d/c from SNF. Case Management to follow. Date Signed: 11/09/2018 02:54 PM Electronically Signed By:Sari Gatica RN
[2018-11-09] MEDS: CHOLECALCIFEROL VIT D3 1,000 UNITS TAB PO SCH (21:14)
[2018-11-09] MEDS: FAMOTIDINE 20 MG TAB PO SCH (21:14)
[2018-11-09] MEDS: MIRTAZAPINE 30 MG TAB PO SCH (21:15)
[2018-11-09] MEDS: PATCH REMOVAL 1 EA PATCH TD SCH (21:17)
[2018-11-10 05:48] LABS: INR 1.36 (0.83-1.16); PROTIME(PATIENT) 16.9 SEC (12.0-15.0)
[2018-11-10 06:03] LABS: PLATELET COUNT 35 10^3/uL (150-400)
[2018-11-10] MEDS: VANCOMYCIN 125 MG/2.5 ML UDL PO SCH ×3 (06:42→15:36)
[2018-11-10] MEDS: LEVOTHYROXINE 25 MCG TAB PO SCH (06:42)
--- NOTE | 2018-11-10 08:21 | HOSPPROG ---
Hospitalist Progress Note Assessment/Plan: 83 yo M w recent dx of MDS here w multiple issues. 1. Acute C diff colitis: 1st episode of this. Responding well to therapy - Continue PO vancomycin 2. Anemia: D/t MDS and ? 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 No melena. H/H trending down - s/p 1 unit 11/06 - Will order additional 1 unit this AM 3. Sepsis: Due to #1. Physiology resolved. 4. Urinary retention: Due to narcotics - Irvin now out, urinating well 5. Thrombocytopenia: D/t MDS. Platelets slightly down, contributing to bleeding - Monitor 6. Coagulopathy: Persistnet despite off coumadin >1 week. - Improved after vit K - Stable 11/10 7. Generalized weakness, deconditioning, gait instability - PT/OT recommending SNF, patient agreeable 8. MDS with excessive blasts - Not yet treated / declining health status - Outpt pall care being set up 9. Poor appetite, moderate protein calorie malnutrition: Better today. Trial pred x1 but now stopped. 10. H/o PE in 2016: High risk of recurrence d/t hematologic issues - Continuing to hold coumadin (stopped 10/27) 11. Dysphagia: Did ok with swallow eval. Back on thin liquids. 12. HTN: BP ok, holding diuretic 13. Lumbar back pain: Resolved. prior MRI unrevealing VTE ppx: SCDs Code: DNR Dispo: Likely discharge to SNF later today after blood transfusion Subjective: Doing well, no copmlaints. 2-3 stools yesterday, similar to prior. No melena or blood. Objective: Vital Signs Temp Pulse Resp BP Pulse Ox 36.6 C 92 16 130/66 H 93 11/10/18 07:38 11/10/18 07:38 11/10/18 07:38 11/10/18 07:38 11/10/18 07:38 Laboratory Results 11/10/18 05:16 11/09/18 11/10/18 11/11/18 05:59 05:59 05:59 Intake Total 100 1500 Output Total 350 200 Balance -250 1300 PT 16.9 SEC (12.0-15.0) H 11/10/18 05:16 INR 1.36 (0.83-1.16) H 11/10/18 05:16 - Physical Exam Constitutional: no apparent distress, chronically ill appearing Eyes: PERRL, anicteric sclera Ears, Nose, Mouth, Throat: moist mucous membranes Cardiovascular: regular rate and rhythym, no murmur, rub, or gallop Respiratory: no respiratory distress, no rales or rhonchi, clear to auscultation Gastrointestinal: normoactive bowel sounds, soft, non-tender abdomen, no palpable masses Genitourinary: no bladder fullness, no bladder tenderness, no renal bruits Skin: no rashes or abrasions, no fluctuance, no induration Musculoskeletal: generalized weakness Neurologic: AAOx3 Psychiatric: interacting appropriately ICD10 Worksheet Patient Problems: Problems Problem Status Onset Unable to ambulate Acute Urinary retention Acute Anemia Acute Cerebral vascular accident Acute Dyspnea Acute Intradural tumor Acute Myelodysplasia (myelodysplastic syndrome) Acute Pulmonary embolism Acute Shortness of breath Acute Weakness Acute
[2018-11-10] MEDS: LIDOCAINE 4%/MENTHOL 1% PATCH TD SCH (09:32)
[2018-11-10] MEDS: PANTOPRAZOLE SODIUM 40 MG TAB PO SCH (09:32)
[2018-11-10] MEDS: CYANO/VITAMIN B12 1000 MCG TAB PO SCH (09:32)
[2018-11-10] MEDS: ACETAMINOPHEN 325 MG TAB PO PRN (09:32)
[2018-11-10] MEDS: PSYLLIUM METAMUCIL 1 PKT PO SCH (09:34)
--- NOTE | 2018-11-10 09:53 | PDDCSUM ---
Discharge Summary Discharge Summary: Date of Admission: 11/05/2018 Date of Discharge: 11/10/2018 Studies: CXR Discharge Diagnoses: 1. Sepsis 2. C diff colitis 3. Anemia 4. Acute urinary retention, resolved 5. Thrombocytopenia 6. Coagulopathy s/p vitamin K 7. Generalized weakness, deconditioning 8. MDS with excessive blasts 9. Moderate protein calorie malnutrition 10. H/o PE now off anticoagulation 11. Dysphagia 12. HTN 13. 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 He was meeting sepsis criteria on admission. C diff testing was positive. This is his first occurrence of C diff. He was started on treatment with oral vancomycin with good result. Only having 2 bowel movements/day at time of discharge. Plan to complete course of vancomycin through 11/16/2018. He hemoglobin did trend down after receiving fluids. He received 2 units packed red blood cells in total this admission. He did not have any melena or hematochezia. His warfarin was not restarted. He briefly had a segura catheter placed for urinary retention. This was felt to be due to narcotics he received in the ED. His segura has been removed and he is urinating on his own. He has follow up with oncology next week for his MDS. He has not begun treatment due to his declining functional status. His platelets have been low ( 30-50s). He as also been coagulopathic and received vitamin K with good response. An outpatient palliative care referral has been made. He is being discharged to a SNF given his deconditioning. Medications: Please refer to EMR for complete list. I have instructed him to stop taking his lisinopril/HCTZ and to start taking PO vancomycin 125mg QID through 11/16/2018. We are also continuing to hold his warfarin. Follow Up Plan: 1. Heme/onc appointment next week Physical Exam: Vitals reviewed, stable. ALert and oriented, generalized weakness , RRR, lungs clear, abdomen soft and nt, trace BLE edema, no rashes.
--- NOTE | 2018-11-10 10:09 | PDIAF ---
- Diagnosis Code Status: Do Not Resuscitate - Medication Management Additional Medication Instructions: Continue to hold warfarin. Continue PO vancomycin 125mg QID through 11/16/2018. Stopped lisinopril/hctz. Discharge Medications: electronically signed and located in the Home Medication List. PICC Care - Routine: N/A - Orders Services needed: Physical Therapy, Occupational Therapy Isolation Type: Contact Isolation Diet Texture: Dysphagia 3 - Advanced - Moist, Bite-Size, Thin Liquids, Meds Whole in Puree Irvin: Not applicable Additional Instructions: 1. Continue oral vancomycin 125mg every 6 hours through 11/16/2018. This is for C diff colitis. 2. We have stopped your lisinopril/hctz (blood pressure medication). Your blood pressure has been ok without it. 3. Follow up with your stapler machine/oncologist as planned. - Follow Up Care Current Providers and Referrals: Zen Roberts MD [Medical Doctor] - As per Instructions Roslyn Quesada MD [Primary Care Provider] - As per Instructions
--- NOTE | 2018-11-10 12:09 | ASMTLACE ---
LACE Length of stay for Answers: 4-6 days current admission Acuity / Level of Answers: Yes Care: Did the patient have an inpatient admission? Comorbidities - select Answers: Any tumor (including all that apply lymphoma or leukemia) Cerebrovascular disease (CVA, TIA, aneurysms, vasc ular dementia) Previous myocardial infarction Other Notes: HTN; GERD; Hx of PEs # of Emergency department Answers: 5-8 visits in the last 6 months Score: 16 Date Signed: 11/10/2018 12:08 PM Electronically Signed By:ANTWON Leigh
--- NOTE | 2018-11-10 12:10 | ASMTCMCOM ---
CM Note CM Note Notes: Pt medically stable for d/c to [facility] SNF. Orders sent in [employer]. RN Karmen to call report. transport scheduled for 1529. Pt anuj Weber updated. Date Signed: 11/10/2018 12:09 PM Electronically Signed By:ANTWON Leigh
[2018-11-10 14:56] VITALS: BP 132/76
--- NOTE | 2018-11-10 16:03 | ASDISCHSUM ---
Discharge Information Plan Status:SNF Medically Cleared to Leave: Discharge Date:11/10/2018 04:01 PM D/C Disposition: ADT D/C Disposition:Alf Facility Projected Discharge Date:11/07/2018 11:00 AM Transportation at D/C: Discharge Delay Reason: Follow-Up Date:11/07/2018 11:00 AM Discharge Slot: Final Diagnosis: Placement Information Referral Type:*Home Health Care Services Referral ID:[id number] Provider Name: Address 1: Phone Number: Address 2: Fax Number: City: Selection Factors: State: Referral Type:*Shelter/SNF Referral ID:[id number] Provider Name:[facility] Address 1:[address] [facility] Phone Number: Address 2: Fax Number: [facility]:[place] Selection Factors: State:[place] Referral Type:Palliative Care Referral ID:-[id number] Provider Name:[facility] Address 1:[address] [facility] [facility] Phone Number: Address 2: Fax Number: [facility]:[place] Selection Factors: State:[place] Patient Contact Information Contact Name:ALISIA Relationship:Friend Address: Work Phone: City:[place] Alternate Phone: [facility]/Zip Code:[place] Email: Financial Information Financial Class:Medicare Primary Plan Desc:MEDICARE INPATIENT Primary Plan Number:[id number] Secondary Plan Desc:[facility] Secondary Plan Number:[id number] Assessment Information [facility] CM Progress Note CM Note CM Note Notes: VM from Carol Bo, RN [facility] regarding pt.'s status. Pt in FED with urinary retention and back pain. He is accompanied by his daughter Cecilia and son in law Wiliam who is to the patient's other daughter Tia. Cecilia is in town from [facility]. Wiliam and Tia stay in the pt's home to provide care as needed. Wiliam expressed hopes of pt's return to prior level to physical funcioning. Pt. recently established in home care with [facility] but has had only one visit prior to current FED admission. He stated pt. was scheduled for PT and OT services but has not started yet. He further noted that pt. does not do well with narcotic pain management and he believes that is part of the decline. Carol Bo came to ED to offer assistance to family. She noted a significant decline. Carol and this CM assessed family's ability to provide mobility/care. The family relayed that they had difficulty moving the pt. even with four people. Concerns were discussed with Dr. Poe and hospitalist was called for admission. Anne from [facility] returned prior call ) to coordinate care. Pt. will be reassessed for ongoing needs. Family would benefit from education regarding palliative/hospice care and role of SNF if appropriate. DC plan TBD, KYLE to follow. Date Signed: 11/05/2018 11:48 AM Electronically Signed By:Daniel Rueda LCSW [facility] CM Progress Note CM Note CM Note Notes: Referral sent to [facility] at the request of Anne in order to monitor pt. need. Date Signed: 11/05/2018 11:59 AM Electronically Signed By:Daniel Rueda LCSW LACE LACE Length of stay for Answers: 4-6 days current admission Acuity / Level of Answers: Yes Care: Did the patient have an inpatient admission? Comorbidities - select Answers: Any tumor (including all that apply lymphoma or leukemia) Cerebrovascular disease (CVA, TIA, aneurysms, vasc ular dementia) Previous myocardial infarction Other Notes: HTN; GERD; Hx of PEs # of Emergency department Answers: 5-8 visits in the last 6 months Score: 16 Date Signed: 11/10/2018 12:08 PM Electronically Signed By:ANTWON Leigh [facility] CM Progress Note CM Note CM Note Notes: OT/INFORMATION TECHNOLOGY COORDINATOR rec SNF, PT eval pending. Spoke with pt and family about SNF, pt mila Brooks and Tia lópez as well as son in law Wiliam. Pt verbalizes he is willing to go to SNF and with family consideration the SNF choice is [facility]. Referral sent in [facility]. CM to follow. Date Signed: 11/06/2018 04:33 PM Electronically Signed By:ANTWON Leigh [facility] CM Progress Note CM Note CM Note Notes: 11/07/2018 Case Management Note Discussed updates with Wiliam pt son in law ( of DARRIN Weber). [facility] accepted pt. Family agreeable to [facility]. Wiliam mentioned that [facility] called this morning for appointment. Faxed updates to [facility]. Encouraged Wiliam to meet with [facility] for discharge supports. Notified [facility] of d/c to [facility]. Case Management d/c poc: [facility] rehab Case Management to follow. Date Signed: 11/07/2018 02:26 PM Electronically Signed By:Sari Gatica RN BC CM Progress Note CM Note CM Note Notes: 11/09/2018 Case Management Note Discussed with . D/C possible tomorrow. Faxed updates to [employer]. Auth was requested on 11/06. Confirmed with Natacha from [employer] that auth was approved. Case Management d/c poc: [facility] SN[facility] rehab with [facility]. [facility] to resume after d/c from SNF. Case Management to follow. Date Signed: 11/09/2018 02:54 PM Electronically Signed By:Sari Gatica RN [facility] CM Progress Note CM Note CM Note Notes: Pt medically stable for d/c to [facility] SNF. Orders sent in [employer]. KENNY Peraza to call report. WC transport scheduled for 1529. Pt anuj Weber updated. Date Signed: 11/10/2018 12:09 PM Electronically Signed By:ANTWON Leigh Intervention Information Intervention Type:Education Family/Patient Date of Service:11/05/2018 11:51 AM Patient Type:Inpatient Staff Member:MIKE Rueda JoAnna Hours:0.5 Discipline:Ultrasound Sonographer Severity:1 (0-1 Hours) Comment: Intervention Type:Family Meeting Date of Service:11/05/2018 11:51 AM Patient Type:Inpatient Staff Member:MIKE Rueda JoAnna Hours:0.5 Discipline:Ultrasound Sonographer Severity:1 (0-1 Hours) Comment:
== END 2018-11-10 16:01 | DRG 872 ==
LOC: EDUNIT# → F3N 14:21
PROVIDERS: ADMIT Internal Medicine; ATTEND Internal Medicine
DX: A41.9 Sepsis, unspecified organism (principal); A04.72 Enterocolitis due to Clostridium difficile, not specified as recurrent; R33.9 Retention of urine, unspecified; T40.605A Adverse effect of unspecified narcotics, initial encounter; D46.9 Myelodysplastic syndrome, unspecified; D68.4 Acquired coagulation factor deficiency; D69.6 Thrombocytopenia, unspecified; E44.0 Moderate protein-calorie malnutrition; R13.10 Dysphagia, unspecified; E03.9 Hypothyroidism, unspecified; I25.10 Atherosclerotic heart disease of native coronary artery without angina pectoris; I10 Essential (primary) hypertension; I25.2 Old myocardial infarction; Z66 Do not resuscitate; Z86.711 Personal history of pulmonary embolism; Z86.73 Personal history of transient ischemic attack (TIA), and cerebral infarction without residual deficits
CPT/HCPCS: 84484-ER; 92526-GN; 92610-GN; 96374; 97116-GP; 97162-GP; 97166-GO; 97530-GO; 97530-GP; 97535-GO; A9585; J2270; J3430; J7512; P9016

== ENCOUNTER 2018-11-22 13:42 | Outpatient (CLI) | payer OTHER ==
[2018-11-22] MEDS ORDERED: diphenhydrAMINE 25 MG CAP PO ONE (14:15)
[2018-11-22] MEDS ORDERED: FUROSEMIDE 20 MG/2 ML VIAL IVP ONE (14:15)
[2018-11-22] MEDS ORDERED: ACETAMINOPHEN 325 MG TAB PO ONE (14:15)
== END 2018-11-22 20:15 ==
LOC: FOBOP 13:42
PROVIDERS: ATTEND Internal Medicine Hematology & Oncology
PROC: 30233N1 Transfusion of Nonautologous Red Blood Cells into Peripheral Vein, Percutaneous Approach (ICD-10-PCS; principal; 2018-11-22)
DX: D46.22 Refractory anemia with excess of blasts 2 (principal)
CPT/HCPCS: 36430; J1940; P9016